=== PATIENT | male | born 1945 | race Caucasian/White ===

== ENCOUNTER 2023-08-10 02:58 | Inpatient (IN) | payer MEDICARE, OTHER, SELFPAY ==
[2023-08-09 22:46] VITALS: BP 130/68
[2023-08-09 22:49] VITALS: BP 130/68; BMI 31.0
[2023-08-09 23:00] VITALS: BP 117/59
--- NOTE | 2023-08-09 23:35 | ED.GENMED ---
History of Present Illness
General
Chief Complaint: Change in Mental Status
Source: patient
Exam Limitations: none
Time Seen by Provider: 08/09/23 22:51
Travel History
Have you had any contact with someone who has COVID-19?: No
Do you have any symptoms of coronavirus? Fever > 100 degrees, chills, cough, shortness of breath, sore throat, loss of taste or smell, muscle aches, or headache?: No
History of Present Illness
History of Present Illness:
This is a 78 year old male that is brought in by ambulance with c/o SOB. States that tonight he couldn't take a deep breath. States that he is in [facility] for rehab as he can't walk. States that he did fracture his knee on the right.Patient
states that he is not going back to the [facility]. States that they did not even have a urinal to give him. Denies any fever, chills, chest pain, abd pain, nausea, vomiting, diarrhea, headache, dizziness, urinary burning.
Past History
Past History
ED Past Medical History: Arrthythmia (Atrial fib), CHF (ED 20%), GERD, HTN, Hypercholesterolemia, NIDDM (Patient states he is no longer diabetic and does not take any medication for this. Diet control), Other (Cardiomyopathy, Aortic stenosis, EF
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
ED Past Surgical History: Cardiac (AICD, TAVR, Watchman, EF 21%), Orthopedic (Total right knee replacement), Urological and Other (Cataracts)
Patient has exhibited threatening behavior?: No
Social History
Tobacco: Non-smoker
Alcohol: None
Drug: None
Personal:
Living: with family
Employment: Retired
Family History
Family History: Other
Review of Systems
Review of Systems
All Other Systems: ROS reviewed and negative except as documented in HPI and ROS
Constitutional: Reports no symptoms; Denies fever or chills
EENT: Reports no symptoms
Respiratory: Reports trouble breathing; Denies cough
Cardiac: Reports no symptoms; Denies chest pain
ABD/GI: Reports no symptoms; Denies abdominal pain, nausea, vomiting or diarrhea
: Reports no symptoms; Denies dysuria, frequency or urgency
Musculoskeletal: Reports no symptoms
Skin: Reports no symptoms; Denies itching or rash
Neurological: Reports no symptoms; Denies dizzy or headache
Psychiatric: Reports no symptoms
Phy Exam
General Physical Exam
General Presentation: no apparent distress
General age: appears stated age
General Skin: warm and dry
General Habitus: elderly
General Mental: alert
General Hydration: appears well hydrated
ENT Exam
ENT Exam: TM's normal, pharynx normal and neck supple
Eye Exam
Eye Exam: EOMI
Cardiovascular Exam
Cardiovascular Exam: regular rate/rhythm and normal peripheral pulses
Pulmonary Exam
Pulmonary Exam: lungs clear, no respiratory distress, no rales, chest non tender, no crackles, no rhonchi, no wheezing and no cough
Gastrointestinal Exam
Gastrointestinal Exam: normal bowel sounds, non tender, soft, no organomegaly, no pulsatile mass and non distended
Musculoskeletal Exam
Musculoskeletal Exam: no edema and other (right leg immobilizer in place, )
Skin Exam
Skin Exam: normal color, warm/dry, no rash and no petechia
Psychiatric Exam
Psychiatric Exam: normal mood/affect
Course
Orders/Labs/Results
Orders:
Orders
08/09/23 23:34
CR Chest - 2 Views Urgent
Comment:
Reason For Exam: SOB
08/09/23 23:35
Electrocardiogram (*1) Urgent
Reason for Study: Shortness of Breath
EKG- Treatment ONCE
08/09/23 23:40
Complete Blood Count/With Diff Urgent
Comprehensive Metabolic Panel Urgent
D-Dimer Urgent
Troponin I Urgent
08/10/23 01:07
Urinalysis Reflex To Culture Urgent
Date Specimen was Collected: 08/10/23
Time Specimen was Collected: 01:04
Urine Microscopic Reflex Cult Urgent
Urine Culture Urgent
HOSEA Source: U
Specimen Description:
Date Specimen was Collected: 08/10/23
Time Specimen was Collected: 01:04
08/10/23 01:41
NT-proBNP Urgent
Abnormal Lab Results
08/09/23 08/10/23
23:40 01:07
RBC 3.27 L 10^6/uL
(4.70-6.10)
Hgb 8.0 L g/dL
(13.0-18.0)
Hct 24.7 L %
(39.0-52.0)
MCV 75.5 L fL
(80.0-94.0)
MCH 24.5 L pg
(27.0-31.0)
MCHC 32.4 L g/dL
(33.0-37.0)
RDW 14.6 H %
(11.5-14.5)
Absolute Lymphs (auto) 0.6 L 10^3/uL
(1.2-3.4)
Absolute Monos (auto) 0.7 H 10^3/uL
(0.1-0.6)
Immature Gran % 0.6 H %
(0-0.5)
Lymphocytes % 12.1 L %
(20.5-51.1)
Monocytes % 12.3 H %
(1.7-9.3)
D-Dimer 2.57 H ug/mlFEU
(0.00-0.50)
Sodium 134 L mmol/L
(135-145)
Chloride 97 L mmol/L
(98-107)
Carbon Dioxide 33 H mmol/L
(22-30)
BUN 69 H mg/dl
(9-20)
Creatinine 2.6 H mg/dL
(0.7-1.3)
Total Bilirubin 1.4 H mg/dl
(0.2-1.3)
Troponin I 0.057 H* ng/ml
Total Protein 5.9 L g/dl
(6.3-8.2)
Albumin 3.1 L g/dl
(3.5-5.0)
Ur Occult Blood Reflex 4+ A
(Negative)
Leukocyte Esterase Rfl Trace A
(Negative)
Urine RBC >100 A /HPF
(0-2)
Urine Bacteria (Reflex) Many A
(Negative)
08/09/23 23:40
08/09/23 23:40
H/H low, Anemia, carbon dioxide slightly elevated. Chronic renal insufficiency, Total protein low. Albumin slightly low. Troponin elevated, D-dimer elevated at 2.57
Urine negative for infection.
Vital Signs
Initial and Last Documented VS:
Initial Vital Signs
Pulse Ox
92
08/09/23 22:42
Last Documented Vital Signs
Temp Pulse Resp BP Pulse Ox
97.9 F 70 25 104/47 95
08/10/23 01:49 08/10/23 01:30 08/10/23 01:45 08/10/23 01:00 08/10/23 01:30
MDM/Problems Addressed
Differential Diagnosis Includes:
PNA, PE, CHF, AnXiety
MDM/Problems Addressed:
This is a 78 year old male that comes in with c/o SOB. States that he felt like he couldn't take a deep breath tonight. Patient also state that he is not going back to the [facility] as they did not even have a Urinal to give him.
Will check labs, chest pain.
Back into see patient. Explained to patient that his D-dimer is elevated and with his Leg injury this is concerning. Patient will need VQ scan as unable to get CT of chest due to kidney function. Patient is very happy as he said he is not going back
to [facility]. Hospitalist notified about admission and the need for Case management fo possible placement elsewhere.
Chronic conditions affecting care: Other (CHF)
Acute Exacerbation and/or Progression of Chronic Illness:
NA
*Radiology
Radiology exam reviewed: preliminary read by ED provider (Chest- Negative for active disease. Pacer/def noted)
*Pulse Oximetry
Patient hypoxic: no
*EKG
Interpreted by ED Provider?: Yes
Heart Rate: 70
Rate: normal
Rhythm: ventricular paced
*Journeyman Carpenter Interpretation
Rate: normal
Heart Rate: 72
Rhythm: ventricular paced
*Critical Care Note
Total Time (30-74mins, 75-104mins- exclusive of procedures): Not Applicable
ED Attending Note
-
Portions of this chart may have been created with voice recognition software.� Occasional wrong word or��sound alike� substitutions may have occurred due to the inherent limitations of voice recognition software.
Discharge Plan
Departure
Patient Disposition: Admit
Date of Disposition: 08/10/23
Time of Disposition: 00:44
Admit to: Telemetry
Presentation/result/management discussed w/ accepting MD/DO: Hospitalist
Condition: Good
Covid-19: Not Applicable
Discharge Problem:
SOB (shortness of breath)
Prescriptions:
No Action
atorvastatin 40 MG tablet
40 mg PO HS
metoprolol succinate [Toprol XL] 25 mg Tablet Extended Release 24 Hr
25 mg PO DAILY
tamsulosin [Flomax] 0.4 mg Capsule
0.4 mg PO HS
cholecalciferol (vitamin D3) [Vitamin D3] 25 mcg (1,000 unit) Tablet
25 mcg PO DAILY
ferrous sulfate [FeroSul] 325 mg (65 mg iron) Tablet
325 mg PO DAILY Qty: 30 0RF
metolazone 2.5 mg Tablet
2.5 mg PO TUTH
sennosides 8.6 mg Tablet
17.2 mg PO HS
bumetanide 2 mg tablet
2 mg PO BID
trazodone 50 mg Tablet
25 mg PO HS
polyethylene glycol 3350 [Miralax] 17 gram Powder In Packet
17 g PO DAILY PRN (Reason: constipation)
melatonin 3 mg Tablet
6 mg PO HS
lidocaine 5 % Adhesive Patch,Medicated
2 patch TOPICAL DAILY
docusate sodium 100 mg Capsule
100 mg PO DAILY
aspirin 81 mg Tablet,Chewable
81 mg PO DAILY
oxycodone 5 mg Tablet
5 mg PO MOTUWETHFR
Patient Comments:
08/09/2023: Clarified with half-way 10mg Prior to therapy discontinued today, and new order for 5mg Prior to therapy to start today.
Rx Instructions:
Give 30 mins prior to therapy
potassium chloride 20 mEq Tablet Extended Release
20 meq PO BID
acetaminophen [Pain Relief ES (acetaminophen)] 500 mg tablet
1,000 mg PO Q8H PRN (Reason: mild pain)
Referrals:
Ehsan Graham DO [Family Provider] -
Interventions
Interventions:
*Risk Screen - Suicide Last Done: 08/09/23 22:49
*General Assessment Last Done: 08/09/23 22:49
*Neglect/Abuse Screening Last Done: 08/09/23 23:00
ED- Fall Risk Assessment Last Done: 08/09/23 23:00
*ED COVID-19 Vaccine History Last Done: 08/09/23 22:49
ED- Pulmonary Assessment Last Done: 08/09/23 23:00
ED-Psychological Assessment Last Done: 08/09/23 23:00
ED- Neurological Assessment Last Done: 08/09/23 22:49
ED- Cardiac Assessment Last Done: 08/09/23 23:00
ED Swallowing Screen Last Done: 08/10/23 00:01
[2023-08-09 23:54] LABS: % Basophils 0.2 % (0-2); % Immature Granulocytes 0.6 % (0-0.5); % Lymphocytes 12.1 % (20.5-51.1); % Monocytes 12.3 % (1.7-9.3); % Neutrophils 74.8 % (42.2-75.2); Absolute Lymphocytes 0.6 10^3/uL (1.2-3.4); Absolute Monocytes 0.7 10^3/uL (0.1-0.6); Hematocrit 24.7 % (39.0-52.0); Mean Corp Hgb Conc. 32.4 g/dL (33.0-37.0); Mean Corpuscular Hgb 24.5 pg (27.0-31.0); Mean Corpuscular Volume 75.5 fL (80.0-94.0); Mean Platelet Volume 10.2 fL (7.4-10.4); Nucleated Red Blood Cells % 0 % (-); Platelet Count 180 10^3/uL (130-400); Red Blood Cell Count 3.27 10^6/uL (4.70-6.10); Red Cell Dist. Width 14.6 % (11.5-14.5); White Blood Cell Count 5.3 10^3/uL (4.8-10.8)
[2023-08-10] VITALS (12 sets, daily range): BP systolic 104–143; BP diastolic 45–106; BMI 31.0; BMI 30.8
[2023-08-10 00:05] LABS: ALT (SGPT) 11 U/L (0-50); AST (SGOT) 22 U/L (17-59); Albumin 3.1 g/dl (3.5-5.0); Alkaline Phosphatase 86 U/L (38-126); Blood Urea Nitrogen 69 mg/dl (9-20); Calcium 8.6 mg/dl (8.4-10.2); Carbon Dioxide 33 mmol/L (22-30); Chloride 97 mmol/L (98-107); Estimated Creatinine Clearance 29 ml/min; Glucose 97 mg/dl (70-99); Potassium 4.1 mmol/L (3.5-5.1); Sodium 134 mmol/L (135-145); Total Bilirubin 1.4 mg/dl (0.2-1.3); Total Protein 5.9 g/dl (6.3-8.2); eGFR 24.48
[2023-08-10 00:28] LABS: D-Dimer 2.57 ug/mlFEU (0.00-0.50)
[2023-08-10 00:30] LABS: Troponin I 0.057 ng/ml
[2023-08-10 01:31] LABS: Urine Albumin Trace (Neg - Trace); Urine Bilirubin Negative (Negative); Urine Character Slightly Cloudy (Clear); Urine Color Yellow; Urine Glucose Negative (Negative); Urine Ketone Negative (Negative); Urine Leukocyte Trace (Negative); Urine Nitrite Negative (Negative); Urine Occult Blood 4+ (Negative); Urine Urobilinogen Negative (Neg - 1+)
[2023-08-10 01:48] LABS: Urine Bacteria Many (Negative); Urine Red Blood Cell >100 /HPF (0-2)
--- NOTE | 2023-08-10 02:01 | HPS.HSE ---
Addendum entered and electronically signed by Kevin Seo MD 08/10/23 05:51:
09/29/22 12/14/22 08/10/23
[id number] Pept [id number]
Original Note:
Family Physician
-
Family Physician: Ehsan Graham, DO
Chief Complaint
-
SoB
History of Present Illness
78M from SNF at [place], rehab , Class I obesity, HX chr HFrEF, NICM, LVEF 30- 35% , CKD3b/4, T2DM,. JILLIAN [facility] for SOB he couldn't take a deep breath. States that he is in [facility] for rehab as he can't walk. States that he did
fracture his knee on the right.Patient states that he is not going back to the [facility]. States that they did not even have a urinal to give him. Denies any fever, chills, chest pain, abd pain, nausea, vomiting, diarrhea, headache, dizziness,
urinary burning.
Medical History
Past Medical History
Past Medical History: Reports Other
Additional Past Medical History:
Arrthythmia (Atrial fib), CHF (ED 20%), GERD, HTN, Hypercholesterolemia, NIDDM (Patient states he is no longer diabetic and does not take any medication for this. Diet control), Other (Cardiomyopathy, Aortic stenosis, EF 21%) and Other (Strep bovis
bacteremia/endocarditis June 2020/July 2020)
Past Surgical History: Reports Other
Additional Past Surgical History:
Cardiac (AICD, TAVR, Watchman, EF 21%), Orthopedic (Total right knee replacement), Urological and Other (Cataracts)
Social History
Tobacco: Non-smoker
Drug: None
Personal:
Living: With Family
Family History
Family History: Not pertinent
Allergies / Home Medications
Allergies reflects when Allergies were last updated in [employer].
Home Medications with original date entered in [employer]
Allergy/Medication List:
Allergies
Allergy/AdvReac Type Severity Reaction Status Date / Time
No Known Allergies Allergy Verified 05/18/23 21:47
Home Medications
atorvastatin 40 mg tablet 40 mg PO HS High cholesterol 09/29/22
cholecalciferol (vitamin D3) 25 mcg (1,000 unit) tablet (Vitamin D3) 25 mcg PO DAILY Supplement 12/14/22
metoprolol succinate 25 mg tablet,extended release 24 hr (Toprol XL) 25 mg PO DAILY Blood Pressure 12/14/22
tamsulosin 0.4 mg capsule (Flomax) 0.4 mg PO HS Urinary Issue 12/14/22
ferrous sulfate 325 mg (65 mg iron) tablet (FeroSul) 325 mg PO DAILY #30 tabs 03/14/23
acetaminophen 500 mg tablet (Pain Relief Extra Strength (acetaminophen)) 1,000 mg PO Q8H PRN mild pain 08/09/23
aspirin 81 mg chewable tablet 81 mg PO DAILY 08/09/23
bumetanide 2 mg tablet 2 mg PO BID 08/09/23
docusate sodium 100 mg capsule 100 mg PO DAILY 08/09/23
lidocaine 5 % topical patch 2 patch topical DAILY 08/09/23
melatonin 3 mg tablet 6 mg PO HS 08/09/23
metolazone 2.5 mg tablet 2.5 mg PO TUTH 08/09/23
oxycodone 5 mg tablet 5 mg PO MOTUWETHFR 08/09/23
polyethylene glycol 3350 17 gram oral powder packet (Miralax) 17 g PO DAILY PRN constipation 08/09/23
potassium chloride 20 mEq tablet,extended release 20 meq PO BID 08/09/23
sennosides 8.6 mg tablet 17.2 mg PO HS 08/09/23
trazodone 50 mg tablet 25 mg PO HS 08/09/23
Review of Systems
-
Constitutional: Reports No Symptoms
EENT: Reports No Symptoms
Respiratory: Reports See HPI and Trouble Breathing
Cardiac: Reports No Symptoms
Abdomen/GI: Reports No Symptoms
: Reports No Symptoms
Musculoskeletal: Reports No Symptoms
Skin: Reports No Symptoms
Neurological: Reports No Symptoms
Endocrine: Reports No Symptoms
Hematologic/Lymphatic: Reports No Symptoms
Psych: Reports No Symptoms
Physical Exam
Vital Signs
Vital Signs
Temp Pulse Resp BP Pulse Ox
97.9 F 70 25 104/47 95
08/10/23 01:49 08/10/23 01:30 08/10/23 01:45 08/10/23 01:00 08/10/23 01:30
Physical Exam
General: Other (see below )
Laboratory Results
-
08/09/23 23:40
08/09/23 23:40
Laboratory Results
Total Bilirubin 1.4 mg/dl (0.2-1.3) H 08/09/23 23:40
AST 22 U/L (17-59) 08/09/23 23:40
ALT 11 U/L (0-50) 08/09/23 23:40
Alkaline Phosphatase 86 U/L (38-126) 08/09/23 23:40
Troponin I 0.057 ng/ml H* 08/09/23 23:40
Data Reviewed
-
Diagnostic Radiology: Report Reviewed by me
Medical Tests (Nuc Med, Echo, EKG etc): Report Reviewed by me
Lab Data: Labs Reviewed by me
Old Records: Reviewed
Impression/Plan
-
Reviewed VS: Afebrile, mildly hypotensive, HR 80 , tachypnic. POx 90- 94
Wt: 115 kg ( 05/18/23 ) --> 103.6 kg ( 08/09/22)
PE
Gen: NAD , obese
HEENT: anicteric
Neck: supple
Lungs: CTA
Cor: RRR S1 S2
Abdomen: sft NT NG NRT
CUSTOMER ORDER CLERK: AAO3 NFND
MS: no edema
Psych: normal mood/affect
Data
Hgb 8.0 - baseline range hi 8s to low 9s
MCV 75
DD 2.57
Na 134
K 4.1
Cl 97
CO2 33
BUN 69
Cr 2.6 - baseline low 2s to hi 2s
eGFR 25 - baseline
TB 1.4
TPNI 0.057
Alb 3.1
Pending UA
NEG CXR for acute process. POS Pacer/ DF
08/22/22 ECHO
LVEF 30-35%
Enlarged right ventricular size. Normal right ventricular systolic function.
Severely dilated right atrium.
Mild mitral stenosis
Well-seated TAVR; peak/mean gradients are 39/19 mmHg. Mild paravalvular aortic regurgitation, two jets.
Moderate to severe tricuspid regurgitation. Estimated pulmonary artery pressure of 50-55 mmHg.
Last hospitalist admission 03/07/23 - 03/14/23 DXs;
Intractable lower back pain with ambulatory dysfunction
Acute toxic encephalotomy/ hypoactive delirium, due to oversedation with opiate
ASSESSMENT & PLAN
Dyspnea with marginal hypoxia DDX: chr CHF vs anemia vs. other multifactorial origins
HX NICM with EF 20 to 30% complicated by Chronic HFrEF or HFmEF
Wt loss 11- 12 kg compare to 05/18/23 and clinically he looks dry
HX Transcatheter aortic valve replacement 2015
- check pro BNP
- Held Bumex/metolazone for now till further eval by Elizaebth
- check standing Wt when he is able
- CBC acrd consult
ZHANG - clinically he looks dry
HX CKD4
Diff etilogy : volume contraction due to diuretics( Bumetanide and Metolazone) vs Cardio renal syndrome vs.
- Held Bumex/metolazone for now till further eval by Card amnd Renal
- Held KCL
- Bladder scan
- Renal consult
Elevated D Dimer
Uncertain clinical Index of suspicion for PE
cannot have CTC wit PE protocol due to ZHANG/CKD4
- Pul consult to evl for VQ scan or what not
Chronic microcytic anemia due to CKD4
- Observe Hgb
HX Strep bovis bacteremia/endocarditis with ICD device and lead extraction with reimplantation of biventricular ICD June 2020/July 2020in [place]
HX Chronic A-fib status post watchman 2021/TAVR hx 2016 - not on any anticoagulation
Essential HTN
- Held Toprol XL due to hypotension
HX T2DM - not on PO meds
- add ISS low
HLD
- cont Atorvastatin
HX BPH
- Baldder scan
- on Flomax 0.4 mg at bedtime
HX JILLIAN
Class I obesity due to excess calorie consumption�BMI 31
- weight loss recommended
DVT Px: SQH
Code: Full
IMU
[2023-08-10 04:26] LABS: Hematocrit 23.7 % (39.0-52.0); Hemoglobin 7.5 g/dL (13.0-18.0); Mean Corp Hgb Conc. 31.6 g/dL (33.0-37.0); Mean Corpuscular Hgb 24.2 pg (27.0-31.0); Mean Corpuscular Volume 76.5 fL (80.0-94.0); Mean Platelet Volume 10.1 fL (7.4-10.4); Platelet Count 155 10^3/uL (130-400); Red Cell Dist. Width 14.8 % (11.5-14.5); White Blood Cell Count 4.8 10^3/uL (4.8-10.8)
[2023-08-10 04:55] LABS: Blood Urea Nitrogen 78 mg/dl (9-20); Calcium 8.7 mg/dl (8.4-10.2); Carbon Dioxide 31 mmol/L (22-30); Chloride 97 mmol/L (98-107); Estimated Creatinine Clearance 30 ml/min; Glucose 149 mg/dl (70-99); Potassium 3.7 mmol/L (3.5-5.1); Sodium 137 mmol/L (135-145); eGFR 25.65
[2023-08-10 05:01] LABS: NT-proBNP 3900 pg/ml
[2023-08-10 05:28] LABS: Ferritin 26.4 ng/ml (17.9-464.0)
--- NOTE | 2023-08-10 05:32 | PTCARENOTE ---
Patient came up from ED, following commands, AAx2, disoriented to time. Complaining of aching pain in right knee fracture. Normal sinus, 70s, v paced. Palpable radial pulses bilaterally and weak palpable pedal pulses bilaterally. Afebrile. 93-96% on
room air, lung sounds diminished. 2 bowel movements, soft and brown. Urinal to void, has not voided since coming from ED, reported to have voided 300 mls in ED. PIV WNL. CHG bath done, labs sent. Hourly rounding and patient safety checks ongoing.
--- NOTE | 2023-08-10 08:22 | PTCARENOTE ---
received patient in bed at 0700. Awake and oriented to place and person. Disoriented of time. Denies pain. BP via left upper arm: 133/67 MAP 87 V/P 70 RR 21. POX 93%. Denies chest pain or discomfort . No edema pedal pulses present. ON RA . Lungs
diminished NO cough No SOB. Abdomen soft round LBP 08/10. No urinal output at this time. Mouth care administered . oral temp 99.0. call leon within reach. HOB elevated
[2023-08-10] MEDS: HEPARIN 5000 UNITS SC ×2 (08:29→20:32)
[2023-08-10] MEDS: LIDOCAINE 4% PATCH 2 PATCH TOPICAL (08:29)
[2023-08-10] MEDS: LOW STRENGTH ASPIRIN 81 MG PO (08:29)
--- NOTE | 2023-08-10 08:29 | CON.PUL ---
Addendum entered and electronically signed by Jordan Buenrostro MD 08/10/23 16:57:
JOSEPH doppler: negative
V/Q scan: low prob testing, reviewed
No indication for AC, BDs, O2
Original Note:
Consultation
Consultation Request
Date/Time Consultation Requested: 08-10-23
Date/Time Consultation Performed: 08-10-23
Medical History
-
Chief Complaint: dyspnea
History of Present Illness:
Mr Edgardo Welsh is a 78/M adm 08-09 from [place] with dyspnea and h/o R knee fracture in May 2023 for which he did not need surgery.
At ER, afebrile, hemodyn and resp dominguez stable on RA, D-dimer elevated, CXR with no gross infiltrates, adm for further work up
At time of visit, resting comfortably, speaking in full sentences, though rambling historian
Denies h/o smoking, cough. Denies precordial/pleuritic CP, syncope
R knee fracture managed conservatively with application of bandage, denies using a cast.
Past Medical History
Past Medical History: Other (see A&P for PMH/PSH)
Social History
Tobacco: Non-smoker
Alcohol: None
Drug: None
Personal:
Living: [facility]
Employment: Not Employed
Family History
Family History: Reviewed & Not Pertinent
Allergies / Home Medications
Allergies
Allergy/AdvReac Type Severity Reaction Status Date / Time
No Known Allergies Allergy Verified 08/10/23 03:09
Home Medications
Medication Instructions Recorded Confirmed Last Taken Type
atorvastatin 40 mg tablet 40 mg PO HS High cholesterol 09/29/22 08/09/23 03/04/23 History
cholecalciferol (vitamin D3) 25 25 mcg PO DAILY Supplement 12/14/22 08/09/23 03/05/23 History
mcg (1,000 unit) tablet (Vitamin
D3)
metoprolol succinate 25 mg 25 mg PO DAILY Blood Pressure 12/14/22 08/09/23 03/05/23 History
tablet,extended release 24 hr
(Toprol XL)
tamsulosin 0.4 mg capsule (Flomax) 0.4 mg PO HS Urinary Issue 12/14/22 08/09/23 03/04/23 History
ferrous sulfate 325 mg (65 mg 325 mg PO DAILY #30 tabs 03/14/23 Unknown Rx
iron) tablet (FeroSul)
acetaminophen 500 mg tablet (Pain 1,000 mg PO Q8H PRN mild pain 08/09/23 08/09/23 Unknown History
Relief Extra Strength
(acetaminophen))
aspirin 81 mg chewable tablet 81 mg PO DAILY 08/09/23 08/09/23 Unknown History
bumetanide 2 mg tablet 2 mg PO BID 08/09/23 08/09/23 Unknown History
docusate sodium 100 mg capsule 100 mg PO DAILY 08/09/23 08/09/23 Unknown History
lidocaine 5 % topical patch 2 patch topical DAILY 08/09/23 08/09/23 Unknown History
melatonin 3 mg tablet 6 mg PO HS 08/09/23 08/09/23 Unknown History
metolazone 2.5 mg tablet 2.5 mg PO TUTH 08/09/23 08/09/23 Unknown History
oxycodone 5 mg tablet 5 mg PO MOTUWETHFR 08/09/23 08/09/23 Unknown History
polyethylene glycol 3350 17 gram 17 g PO DAILY PRN constipation 08/09/23 08/09/23 Unknown History
oral powder packet (Miralax)
potassium chloride 20 mEq 20 meq PO BID 08/09/23 08/09/23 Unknown History
tablet,extended release
sennosides 8.6 mg tablet 17.2 mg PO HS 08/09/23 08/09/23 Unknown History
trazodone 50 mg tablet 25 mg PO HS 08/09/23 08/09/23 Unknown History
Review of Systems
-
History Source: Patient
Respiratory: Trouble Breathing
Vitals / Labs / Diagnostic Testing
Vital Signs
Temp Pulse Resp BP Pulse Ox
99.0 F 70 14 124/87 90
08/10/23 08:00 08/10/23 07:30 08/10/23 07:30 08/10/23 06:00 08/10/23 07:30
Lab Data
08/10/23 04:16
08/10/23 04:16
Diagnostic Testing:
Physical Exam
-
HEENT: Normocephalic and Moist Mucous Membranes
Cardiovascular: Regular Rhythm, Peripheral Edema (n) and JVD (n)
Respiratory: Clear and Non-Labored Respirations
GI: Soft, Non Distended and Non Tender
Neurology: Awake, Oriented and No Motor Deficits
Skin: Dry
General: Respiratory Distress (n)
Assessment
-
Assessment:
Mr Edgardo Welsh is a 78/M adm 08-09 from [place] with dyspnea and h/o R knee fracture in May 2023 for which he did not need surgery. At ER, afebrile, hemodyn and resp dominguez stable on RA, D-dimer elevated, CXR with no gross infiltrates
Impression:
Dyspnea
Elevated D-dimer
Elevated troponin
HFrEF
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
CHF
AFib
HTN
HLD
S/p ICD lead extraction 08/28/2022: intubated for procedre, on MV overnight afterwards
Staphylococcus epidermidis bacteremia
ICD wire endocarditis
Strep bovis bacteriemia/endocarditis Jun 2020
TAVR, Watchman procedure 2015
Covid May 2022
Nonischemic cardiomyopathy, EF 30%
Status post ICD
NSVT
Chronic kidney disease stage III
Recurrent UTI
R TKR 10 y ago
BPH
Nonsmoker
Plan:
Currently on RA, POx 94% at rest
Resp dominguez comfortable at time of visit, speaking in full sentences
Noted that Mr Welsh is a rambling historian, does not remember some details of his medical histoy
To my interview denies cough, precordial or pleuritic CP, syncopal event
For R knee fracture in May 2023 he did not require surgery but bandaging of R knee for support
Denies previous h/o VTE
Not on chronic AC
Denies h/o smoking
States he had O2 at home at some point in the past but used it only as needed
Not on bronchodilators, confirms h/o nonsmoking
Noted elevated D-dimer on adm, normal back in 2014
Potential causes or contributing factors: CKD, aging, ACS
Observing off AC at this time
Noted evolving moderate to severe anemia: 10 in May 2023, 8 on adm, today 7.5 (08-10)
Noted hematuria on UA, UCx pending
Ordered JOSEPH doppler
V/Q was also ordered
Not candidate for CTA due to CKD
Updating TTE
Stable for telemetry, pulm to follow
D/w Mr Welsh
D/w Dr Leo
Diagnostic tests:
CXR 08-09-23: PA/lat c/w Feb 2023. Somewhat underpenetrated film with suspected poor inspiratory effort, low lung volumes, mild increase in pulm vasc congestion, prominent R hilar vessels. R chest PM
RHC 10-11-22
RA: 21
RV: 64/20
PA: 68/30
PCWP: 25
Oximetry: Ao 100%, PA 62%, cardiac output 6.0, cardiac index 2.6
CONCLUSION: Elevated filling pressures with moderate to severe pulmonary hypertension. Filling pressures consistent with volume overload
SUSI 08-24-22
CONCLUSIONS
Moderately reduced left ventricular systolic function. Left ventricular ejection fraction is 35-40%.
Global hypokinesis.
There is a 1.2 cm mobile echodensity on the ICD lead consistent with thrombus or vegetation.
Watchman FLX with normal function.
Well seated bioprosthetic AVR that opens normally. Mild paravalvular leak. Mild to moderate mitral regurgitation.
Moderate to severe tricuspid regurgitation. Estimated pulmonary artery pressure of 65-70 mmHg.
Compared to prior study of Aug 22, the echodensity is now seen (this study is a SUSI while that was a transthoracic
--- NOTE | 2023-08-10 09:19 | CON.CAR ---
Addendum entered and electronically signed by Sam Parra MD 08/10/23 10:28:
Patient seen and examined in collaboration with PURCHASING AGENT; agree with below.
-70-year-old male with extensive cardiac/medical history as outlined below, including chronic HFrEF (30-35%); admitted with shortness of breath.
-Patient actually appears to be fairly compensated from a cardiac standpoint.
-Patient has an elevated D-dimer; PE should be ruled out.
-Will update echocardiogram today; known chronic CHF, however.
-Anemia workup as per primary team.
-Patient can continue current cardiac medication regimen.
-Cardiology will remain available on an as-needed basis; outpatient follow-up with Cardiology.
Original Note:
Consultation
Consultation Request
Date/Time Consultation Requested: 08/10/23 03:30
Date/Time Consultation Performed: 08/10/23 09:15
Requesting Provider: Dr. Seo
Performing Provider: MIKALA Oliver for Dr. Parra
Reason for Consultation: Dyspnea with mild hypoxia, concern for acute on chronic HFrEF
Medical History
-
Chief Complaint: Shortness of breath
History of Present Illness:
Mr. Welsh is a 70-year-old male with CAD, non-ischemic cardiomyopathy, HFrEF, permanent atrial fibrillation (Watchman device on aspirin), aortic stenosis s/p TAVR, ICD with lead extraction 08/28/2022 this is, dyslipidemia, and CKD who presented to
the emergency department complaints of shortness of breath. He reports he is not short of breath. Cardiology was consulted for concern for acute on chronic HFrEF. He states he does have a dry cough. He denies orthopnea and PND. He reports
medication adherence. He has not had any weight gain. He actually is his lowest documented weight at this facility. He is requesting to not return to his rehabilitation facility.
Past Medical History
Past Medical History: Arrhythmias (Permanent atrial fibrillation), CHF (HFrEF), Renal Failure (CKD), Valvular Disease (Severe aortic stenosis s/p TAVR) and Other (Watchman, ICD requiring lead extraction [infection])
Past Surgical History: Cardiac
Social History
Tobacco: Former Smoker
Alcohol: None
Drug: None
Living: [facility]
Family History
Family History: Reviewed & Not Pertinent
Allergies / Home Medications
Allergy/AdvReac Type Severity Reaction Status Date / Time
No Known Allergies Allergy Verified 08/10/23 03:09
Medication Instructions Recorded Confirmed Type
atorvastatin 40 mg tablet 40 mg PO HS High cholesterol 09/29/22 08/09/23 History
cholecalciferol (vitamin D3) 25 25 mcg PO DAILY Supplement 12/14/22 08/09/23 History
mcg (1,000 unit) tablet (Vitamin
D3)
metoprolol succinate 25 mg 25 mg PO DAILY Blood Pressure 12/14/22 08/09/23 History
tablet,extended release 24 hr
(Toprol XL)
tamsulosin 0.4 mg capsule (Flomax) 0.4 mg PO HS Urinary Issue 12/14/22 08/09/23 History
ferrous sulfate 325 mg (65 mg 325 mg PO DAILY #30 tabs 03/14/23 Rx
iron) tablet (FeroSul)
acetaminophen 500 mg tablet (Pain 1,000 mg PO Q8H PRN mild pain 08/09/23 08/09/23 History
Relief Extra Strength
(acetaminophen))
aspirin 81 mg chewable tablet 81 mg PO DAILY 08/09/23 08/09/23 History
bumetanide 2 mg tablet 2 mg PO BID 08/09/23 08/09/23 History
docusate sodium 100 mg capsule 100 mg PO DAILY 08/09/23 08/09/23 History
lidocaine 5 % topical patch 2 patch topical DAILY 08/09/23 08/09/23 History
melatonin 3 mg tablet 6 mg PO HS 08/09/23 08/09/23 History
metolazone 2.5 mg tablet 2.5 mg PO TUTH 08/09/23 08/09/23 History
oxycodone 5 mg tablet 5 mg PO MOTUWETHFR 08/09/23 08/09/23 History
polyethylene glycol 3350 17 gram 17 g PO DAILY PRN constipation 08/09/23 08/09/23 History
oral powder packet (Miralax)
potassium chloride 20 mEq 20 meq PO BID 08/09/23 08/09/23 History
tablet,extended release
sennosides 8.6 mg tablet 17.2 mg PO HS 08/09/23 08/09/23 History
trazodone 50 mg tablet 25 mg PO HS 08/09/23 08/09/23 History
Review of Systems
-
History Source: Patient
All other systems: Negative unless noted
Constitutional: No Symptoms
EENT: No Symptoms
Respiratory: No Symptoms
Cardiac: No Symptoms
Abdomen/GI: No Symptoms
: No Symptoms
Musculoskeletal: No Symptoms
Skin: No Symptoms
Neurological: No Symptoms
Endocrine: No Symptoms
Hematologic/Lymphatic: No Symptoms
Physical Exam
Vital Signs
Temp Pulse Resp BP Pulse Ox
99.0 F 70 14 124/87 90
08/10/23 08:00 08/10/23 07:30 08/10/23 07:30 08/10/23 06:00 08/10/23 07:30
Lab Results
08/10/23 04:16
08/10/23 04:16
Troponin I 0.060 ng/ml H* 08/10/23 08:18
Wdg-A-Bnybcyulnrt Pept 3900 pg/ml 08/10/23 04:16
Physical Exam
General: Well Developed, Well Nourished, No Apparent Distress and Comfortable
HEENT: Normocephalic and Moist Mucous Membranes
Respiratory: Clear and Non Labored Respirations
Cardiac: S1/S2 and Regular Rhythm
Breast: Deferred by me
GI: Soft, Non Tender, Non Distended and Normal Bowel Sounds
Rectal: Deferred by Provider
Genito-urinary: No Costovertebral Tender
Musculoskeletal: No Clubbing, No Cyanosis and No Edema
Skin: Warm and Dry
Neuro: AO x 3
Hematologic/Lymphatic: No Lymphadenopathy
Psych: Calm
Impression / Plan
-
HFrEF (EF30-35%), chronic
-On beta dianne, GDMT is limited by renal function.
-Resume bumetanide 2 mg twice daily tomorrow
-He is at his lowest documented weight without PND and orthopnea holding his renal function
Permanent Atrial Fibrillation
-Stable & rate controlled, continue BB
-Oral Anticoagulation: Watchman 04/11/2022 on ASA 81mg
Abnormal troponin, nonischemic myocardial injury in the setting of CKD
-He denies anginal symptoms, trend to peak
-EKG ventricularly paced
Anemia, per primary
s/p TAVR, stable on prior echocardiogram, update
CKD, chronic and stable
ICD, s/p lead extraction on 08/28/22. Then re-implant of Bi-V ICD device at [facility] [place]
Data Reviewed
-
EKG: Report Reviewed by me (V paced rhythm, rate 70)
Radiology: Report Reviewed by me (CXR: Limited study with extremely low lung volumes and crowding of the central/vascular markings. No findings to suggest pneumonia.)
Medical Tests (Nuc Med, Echo etc): Report Reviewed by me (TTE 08/2022 as above)
Labs: Labs Reviewed by me
Old Records: Reviewed
--- NOTE | 2023-08-10 09:46 | W.PN.UPDATE ---
Update Note
Progress Note Update
Impression:
Presenting from rehab with complaints of cough and chest pain.
Conditions prior to admission:
Chronic CHF reduced EF/nonischemic cardiomyopathy LVEF 30-35%
Permanent atrial fibrillation
Not on anticoagulation status post watchman 04/29
Aortic stenosis status post TAVR
CKD stage IV baseline creatinine 2.[address]
History of staph epi bacteremia due to infected pacemaker lead/lead extraction 08/31 [facility]
Anemia of chronic disease.
Dyslipidemia
Chronic pain requiring narcotics administration
BPH
Obesity with BMI of 30
Chronic ambulatory dysfunction
Plan:
Episode of chest pain, self-limited.
Stable respiratory status with no requirements for supplemental oxygen.
He has chronic CHF with cardiomyopathy LVEF of 30%, exam with euvolemic to dry status. Non-OK troponin elevation noted. Pro CHF BNP lower than baseline.
Patient is nonambulatory.
There is a reasonable concern for thromboembolic disease
Will check lower extremity Doppler and VQ scan. Unable to perform CTA given abnormal renal function)
Chronic CHF reduced EF.
Update echocardiogram.
Continue beta-dianne with caution for hypotension
Unable to introduce GDMT due to abnormal renal function.
Given mild dehydration with contraction alkalosis, will hold bumetanide for another 24 to 48 hours monitoring volume status closely
Permanent atrial fibrillation.
History of manage complications. Status post watchman not on anticoagulation
Continue beta-blockade
Non-OK troponin elevation.
Patient denies any chest pain
ECG paced.
Monitor trend.
Chronic anemia with trending down hemoglobin at 7's.
Check iron study
Suspect anemia of CKD.
Transfuse if trending down below 7.
[2023-08-10 10:17] LABS: Iron 30 ug/dl (49-181)
[2023-08-10 10:27] LABS: Percent Saturation 10 % (20-50); Total Iron Binding Capacity 292 ug/dl (261-462)
[2023-08-10 10:52] LABS: TSH 1.61 uIU/ml (0.47-4.68)
[2023-08-10 11:11] LABS: Vitamin B12 484 pg/ml (239-931)
[2023-08-10] MEDS: TOPROL XL 25 MG PO (11:28)
--- NOTE | 2023-08-10 12:07 | PTCARENOTE ---
patient will be transfer to room 402/1 Report given to 4th floor nursing staff.
--- NOTE | 2023-08-10 13:18 | PTCARENOTE ---
patient will be transfer to [facility] for VQ scan . After completion of vQ scan patient will be transfer to room 402/1 Report given earlier. all belongings including cell phone and cell phone changer send with patient pt transfer via bed. no
contact for family to notify them regarding transfer available
--- NOTE | 2023-08-10 13:28 | CM ---
CM following re: discharge planning.
Discussed in Rounds, reviewed pt's chart, met with pt twice today and had a long conversation with pt's brother Orestes.
Pt is a 78 year old male, admitted with primary dx of Dyspnea with marginal hypoxia.
Pt is well known to this CM from previous admissions last year. Pt has had many hospitalizations last year, was at many SNFs. Pt reports he used to live with spouse 2SH, 2 steps to enter, has no children. Pt reports he has been at [facility] for more than 30 days, his spouse also there. Pt expressed his desire to return back to his house to live with his spouse. Pt stated his brother Orestes and his spouse will help him to stay at home and pt asked to call his brother Orestes.
CM spoke to pt's brother Orestes [phone] and pt's brother stated he and his spouse have their own health condition and they will not be able to care for pt and his spouse at their home. Per Orestes, APS of [facility] was involved and pt's
spouse removed from her home and she was placed to [facility] and after she was placed to [facility]. 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
care and his nieces and nephews will sell the house. Pt's brother stated he understands that pt wants to live in his own house but there will be nobody to help him. per brother, pt might prefer [facility] instead of [facility].
CM met with pt again, had a long conversation that apparently was not pleasant sandi the pt , however pt expressed his understanding and pt stated he realized he must be where he has a care he needs. Pt agrees to return back to [facility] for
a dedicated intermodal truck driver care and he stated he will talk there with his spouse regarding transferring to [facility]. Pt is aware that both [facility] and [facility] are warren facilities and it will not be difficult for pt and to his spouse to
be transferred from one SNF to another. Pt stated he already working with his nieces and nephews regarding selling his and his spouse property. Pt stated he realized he needs a lot of care.
D/C plan: return back to [facility] to continue on a short term skilled services and transitioning for a dedicated intermodal truck driver care.
CM will follow with discharge plan updates as hospitalization progresses
[2023-08-10 15:30] LABS: Troponin I 0.049 ng/ml
[2023-08-10] MEDS: TYLENOL 1000 MG PO (15:33)
--- NOTE | 2023-08-10 16:25 | W.PN.HOSP.TC ---
Today's Communication/Plan
-
.
Assessment / Plan
Assessment / Plan
Impression:
Dyspnea
Congestive heart failure with reduced ejection fraction
Permanent A-fib
Elevated troponins
Anemia
Aortic stenosis s/p TAVR
Chronic kidney disease stage IV
Dyslipidemia
Narcotic dependence for chronic pain
BPH
Obesity
Chronic ambulatory dysfunction
Plan:
#Dyspnea
Currently on room air, SpO2 at 97%
Uses home O2 as required at nighttime, 1-2 L.
Denies previous h/o VTE
D-dimer elevated 2.57
Plan for PE workup, not a candidate for pulmonary CT angiogram due to CKD
Peripheral vascular ultrasound�no evidence of deep venous thrombosis in lower extremities
Lung VQ scan�no evidence of pulmonary embolism
#Chronic CHF with reduced ejection fraction [30 to 35%]
Continue metoprolol
GDMT limited due to renal function
Bumetanide on hold for another 24 to 48 hours
Monitor inputs and outputs
#Permanent Atrial Fibrillation
Stable & rate controlled
Continue metoprolol succinate
Oral Anticoagulation: Watchman 04/11/2022 on ASA 81mg
#Abnormal troponin, 0.060, 0.049,
nonischemic myocardial injury in the setting of CKD
Denies angina
ECG ventricularly paced
Monitor trend
#Chronic anemia
Hemoglobin 7.5
Check iron studies
Transfuse if less than 7
# Aortic stenosis S/P TAVR
# CKD stage IV
Creatinine 2.5, BUN 78
Monitor
# Dyslipidemia
Continue atorvastatin
# BPH
Continue trazodone
# DVT prophylaxis
Heparin
Anticipated Discharge: Within 24 hours
Subjective/Interval History
-
Date of Service: August 10, 2023
Patient states his chest pain and shortness of breath have improved.
Objective Data
-
Labs:
Laboratory Results
08/10/23
04:16
WBC 4.8
Hgb 7.5 L
Hct 23.7 L
Plt Count 155
Sodium 137
Potassium 3.7
Chloride 97 L
Carbon Dioxide 31 H
BUN 78 H
Creatinine 2.5 H
Glucose 149 H
Calcium 8.7
Vital Signs:
Vital Signs
Temp Pulse Resp BP Pulse Ox
98.8 F 71 20 143/72 97
08/10/23 14:00 08/10/23 14:00 08/10/23 14:00 08/10/23 14:00 08/10/23 14:00
I&O
08/09/23 08/10/23 08/11/23
06:59 06:59 06:59
Intake Total 240 / 240
Output Total 300 / 300
Balance -300 / -300 240 / 240
Physical Exam
-
General: Well Developed, Well Nourished and Comfortable
HEENT: Normocephalic and Atraumatic
Respiratory: Clear to Auscultation
Cardiac: Regular Rhythm and S1/S2
GI: Soft, Nontender, Nondistended and Normal Bowel Sounds
Musculoskeletal: No Clubbing, No Cyanosis and No Edema
Skin: Warm and Dry
Neuro: Awake, Alert, Oriented and AO x 3
[2023-08-10] MEDS: FLOMAX 0.400000000000000022 MG PO (20:31)
[2023-08-10] MEDS: MELATONIN 6 MG PO (20:31)
[2023-08-10] MEDS: DESYREL 25 MG PO (20:31)
[2023-08-10] MEDS: LIPITOR 40 MG PO (20:31)
--- NOTE | 2023-08-11 04:04 | PTCARENOTE ---
Patient called RN in stating he could not breathe. Patients O2 was 99% on RA. Patient stated he usually uses home O2 at 2L at bedtime. RN put patient on 2L NC. RN and PCT provided emotional support. SaO2 was 99-100% on 2L NC.
[2023-08-11 04:10] VITALS: BMI 30.5
[2023-08-11 07:05] VITALS: BP 117/68
[2023-08-11 07:31] LABS: Hemoglobin 7.2 g/dL (13.0-18.0); Mean Corp Hgb Conc. 31.3 g/dL (33.0-37.0); Mean Corpuscular Hgb 24.2 pg (27.0-31.0); Mean Corpuscular Volume 77.2 fL (80.0-94.0); Mean Platelet Volume 10.1 fL (7.4-10.4); Platelet Count 166 10^3/uL (130-400); Red Blood Cell Count 2.98 10^6/uL (4.70-6.10); Red Cell Dist. Width 14.8 % (11.5-14.5); White Blood Cell Count 3.4 10^3/uL (4.8-10.8)
[2023-08-11 08:09] LABS: Blood Urea Nitrogen 66 mg/dl (9-20); Calcium 8.2 mg/dl (8.4-10.2); Carbon Dioxide 34 mmol/L (22-30); Chloride 97 mmol/L (98-107); Estimated Creatinine Clearance 31 ml/min; Glucose 70 mg/dl (70-99); Potassium 3.7 mmol/L (3.5-5.1); Sodium 133 mmol/L (135-145); eGFR 26.94
[2023-08-11] MEDS: HEPARIN 5000 UNITS SC ×2 (08:18→22:29)
[2023-08-11] MEDS: LIDOCAINE 4% PATCH 2 PATCH TOPICAL (08:18)
[2023-08-11] MEDS: TOPROL XL 25 MG PO (08:19)
[2023-08-11] MEDS: LOW STRENGTH ASPIRIN 81 MG PO (08:19)
--- NOTE | 2023-08-11 08:54 | W.PN.HOSP.TC ---
Today's Communication/Plan
-
Transfuse 1 unit of packed red blood cells today
Assessment / Plan
Assessment / Plan
#Dyspnea with activity
#Worsening anemia from chronic kidney disease and iron deficiency
Currently on room air, SpO2 at 97%, iron studies reveal iron deficiency
Peripheral vascular ultrasound�no evidence of deep venous thrombosis in lower extremities
Lung VQ scan�no evidence of pulmonary embolism
Appreciate cardiology and pulmonology input, patient's cardiac and pulmonary status are compensated
Patient's hemoglobin continues to trend down to 7.2, no signs of bleeding
Transfuse 1 unit of packed red blood cells today for symptomatic anemia
Give IV iron while in hospital, resume oral iron upon discharge
#Chronic CHF with reduced ejection fraction [30 to 35%]
Appreciate cardiology input, continue metoprolol, GDMT limited due to renal function
Resume Bumex today 2/
#Permanent Atrial Fibrillation
Rate controlled on metoprolol, on aspirin status post watchman
#Nonmyocardial troponin elevation
Likely due to CKD
#Aortic stenosis S/P TAVR
#CKD stage IV
Creatinine at baseline
#Hyperlipidemia
Continue atorvastatin
#BPH
Continue flomax
#Recent right knee fracture manage medically
Continue pain control, PT/OT
Patient does not want to return to [facility], case management to assist
DVT prophylaxis�subcu heparin
Full code
Total time spent to see the patient on the floor, examine the patient, review data and lab results, discuss treatment plan with patient, nursing staff around 51 minutes.
Physical Exam
General: Appears chronically debilitated, no acute distress
HEENT: Normocephalic, Atraumatic, EOMI, MMM
Respiratory: Clear to Auscultation bilaterally
Cardiac: Normal S1/S2, Regular Rate and Rhythm
GI: Soft, Nontender, Nondistended, Normal Bowel Sounds
Anticipated Discharge: 24 - 48 hours
Subjective/Interval History
-
Date of Service: August 11, 2023
Patient reports dyspnea with activity. No lightheadedness, no weakness, no shortness of breath at rest.
Objective Data
-
Labs:
Laboratory Results
08/11/23
06:02
WBC 3.4 L
Hgb 7.2 L
Hct 23.0 L
Plt Count 166
Sodium 133 L
Potassium 3.7
Chloride 97 L
Carbon Dioxide 34 H
BUN 66 H
Creatinine 2.4 H
Glucose 70
Calcium 8.2 L
Vital Signs:
Vital Signs
Temp Pulse Resp BP Pulse Ox
97.6 F 72 18 117/68 100
08/11/23 07:05 08/11/23 08:19 08/11/23 07:05 08/11/23 08:19 08/11/23 07:05
I&O
08/10/23 08/11/23 08/12/23
06:59 06:59 06:59
Intake Total 1680 / 1680
Output Total 300 / 300 1000 / 1000
Balance -300 / -300 680 / 680
[2023-08-11 13:42] VITALS: BP 93/43
[2023-08-11 14:01] VITALS: BP 123/58
[2023-08-11 16:35] VITALS: BP 117/78
--- NOTE | 2023-08-11 16:35 | PTCARENOTE ---
Completed unit of PRBCs at this time, no apparent transfusion reaction, see TAR for documentation, will continue to monitor.
[2023-08-11] MEDS: BUMEX 2 MG PO (16:38)
--- NOTE | 2023-08-11 17:14 | W.PN.PUL3 ---
Today's Communication / Plan
-
Reconsult prn
Assessment
-
Assessment:
Mr Edgardo Welsh is a 78/M adm 08-09 from [place] with dyspnea and h/o R knee fracture in May 2023 for which he did not need surgery. At ER, afebrile, hemodyn and resp dominguez stable on RA, D-dimer elevated, CXR with no gross infiltrates
Impression:
Dyspnea
Elevated D-dimer
Elevated troponin
HFrEF
Conditions [employer]ERAM[employer]:
CHF
AFib
HTN
HLD
S/p ICD lead extraction 08/28/2022: intubated for procedre, on MV overnight afterwards
Staphylococcus epidermidis bacteremia
ICD wire endocarditis
Strep bovis bacteriemia/endocarditis Jun 2020
TAVR, Watchman procedure 2015
Covid May 2022
Nonischemic cardiomyopathy, EF 30%
Status post ICD
NSVT
Chronic kidney disease stage III
Recurrent UTI
R TKR 10 y ago
BPH
Nonsmoker
Plan:
Remains on RA, POx 94% at rest
Resp dominguez comfortable, speaking in full sentences
Noted that Mr Welsh is a rambling historian, does not remember some details of his medical histoy
To my interview denies cough, precordial or pleuritic CP, syncopal event
For R knee fracture in May 2023 he did not require surgery but bandaging of R knee for support
Denies previous h/o VTE
Not on chronic AC
Denies h/o smoking
States he had O2 at home at some point in the past but used it only as needed
Not on bronchodilators, confirms h/o nonsmoking
Noted elevated D-dimer on adm, normal back in 2014
Potential causes or contributing factors: CKD, aging, ACS
Observing off AC at this time
Noted evolving moderate to severe anemia: 10 in May 2023, 8 on adm, today 7.5 (08-10)
Noted hematuria on UA, UCx GNB
JOSEPH doppler negative
V/Q low prob test
Not candidate for CTA due to CKD
Updating TTE: enlarged RV with normal systolic function. LVEF 30=35%, global hypokinesis, mild to mod MR, well seated TAVR with mild paravalvlar AR. No significant change c/w Aug 2022
Managing anemia
D/w Mr Welsh
Reconsult prn
Diagnostic tests:
CXR 08-09-23: PA/lat c/w Feb 2023. Somewhat underpenetrated film with suspected poor inspiratory effort, low lung volumes, mild increase in pulm vasc congestion, prominent R hilar vessels. R chest PM
RHC 10-11-22
RA: 21
RV: 64/20
PA: 68/30
PCWP: 25
Oximetry: Ao 100%, PA 62%, cardiac output 6.0, cardiac index 2.6
CONCLUSION: Elevated filling pressures with moderate to severe pulmonary hypertension. Filling pressures consistent with volume overload
SUSI 08-24-22
CONCLUSIONS
Moderately reduced left ventricular systolic function. Left ventricular ejection fraction is 35-40%.
Global hypokinesis.
There is a 1.2 cm mobile echodensity on the ICD lead consistent with thrombus or vegetation.
Watchman FLX with normal function.
Well seated bioprosthetic AVR that opens normally. Mild paravalvular leak. Mild to moderate mitral regurgitation.
Moderate to severe tricuspid regurgitation. Estimated pulmonary artery pressure of 65-70 mmHg.
Compared to prior study of Aug 22, the echodensity is now seen (this study is a SUSI while that was a transthoracic
Subjective Data
-
Date of Service:
Date of Service: August 11, 2023
Chief Complaint: Pulmonary Follow Up
Subjective:
No major events reported
Remains on RA
In no resp distress
Review of Systems
General: Fever (n), Sweats (n), Chills (n) and Satisfactory Appetite
Cardiopulmonary: Dyspnea (n), Cough, Wheezing (n) and Chest Pain (n)
GI: Abdominal Pain (n), Nausea (n) and Vomiting (n)
Neuro: Weakness
Objective Data
Data Reviewed
Vital Signs / I&O / Oxygen:
Vital Signs
Temp Pulse Resp BP Pulse Ox
98.1 F 72 18 117/78 94
08/11/23 16:35 08/11/23 16:38 08/11/23 16:35 08/11/23 16:38 08/11/23 16:35
Intake and Output
08/10/23 08/11/23 08/12/23
06:59 06:59 06:59
Intake Total 1680 / 1680 250 / 250
Output Total 300 / 300 1000 / 1000
Balance -300 / -300 680 / 680 250 / 250
SaO2 94
Nasal Cannula flow liters per 2
minute
Physical Exam
General: Comfortable
HEENT: Normocephalic and Moist Mucous Membranes
Cardiovascular: Regular Rhythm, Murmur (n), Peripheral Edema (n) and Calf Tenderness (n)
Respiratory: Clear, Non-Labored Respirations and Stridor (n)
GI: Soft, Non Distended and Non Tender
Neurology: Awake, Oriented and No Motor Deficits
Skin: Dry
Labs/Micro/Reports
Lab Data
08/11/23 06:02
08/11/23 06:02
Microbiology
08/10/23 01:07 Urine Urine Culture - Preliminary
Gram negative bacilli
[2023-08-11] MEDS: ROCEPHIN 1000 MG IV (18:27)
[2023-08-11] MEDS: STERILE WATER FOR INJECTION 10 ML IV (18:28)
[2023-08-11] MEDS: KCL 20 MEQ PO (22:28)
[2023-08-11] MEDS: FLOMAX 0.400000000000000022 MG PO (22:28)
[2023-08-11] MEDS: SENOKOT 17.1999999999999993 MG PO (22:29)
[2023-08-11] MEDS: LIPITOR 40 MG PO (22:29)
[2023-08-11] MEDS: DESYREL 25 MG PO (22:32)
[2023-08-11] MEDS: MELATONIN 6 MG PO (22:35)
[2023-08-11 23:35] VITALS: BP 119/68
[2023-08-12 05:30] VITALS: BMI 31.5
[2023-08-12 07:30] LABS: Hematocrit 26.8 % (39.0-52.0); Hemoglobin 8.3 g/dL (13.0-18.0); Mean Corpuscular Hgb 24.4 pg (27.0-31.0); Mean Corpuscular Volume 78.8 fL (80.0-94.0); Mean Platelet Volume 9.6 fL (7.4-10.4); Platelet Count 172 10^3/uL (130-400); Red Cell Dist. Width 14.6 % (11.5-14.5); White Blood Cell Count 3.5 10^3/uL (4.8-10.8)
[2023-08-12 07:35] VITALS: BP 123/60
[2023-08-12 08:04] LABS: Blood Urea Nitrogen 67 mg/dl (9-20); Calcium 8.5 mg/dl (8.4-10.2); Carbon Dioxide 31 mmol/L (22-30); Chloride 98 mmol/L (98-107); Estimated Creatinine Clearance 35 ml/min; Glucose 70 mg/dl (70-99); Potassium 3.9 mmol/L (3.5-5.1); Sodium 132 mmol/L (135-145); eGFR 29.91
--- NOTE | 2023-08-12 08:35 | W.PN.HOSP.TC ---
Today's Communication/Plan
-
Consult GI
Assessment / Plan
Assessment / Plan
#Dyspnea with activity
#Worsening anemia from chronic kidney disease and iron deficiency
#Heme positive stool
Currently on room air, SpO2 at 97%, iron studies reveal iron deficiency
Peripheral vascular ultrasound�no evidence of deep venous thrombosis in lower extremities
Lung VQ scan�no evidence of pulmonary embolism
Appreciate cardiology and pulmonology input, patient's cardiac and pulmonary status are compensated
Hemoglobin 8.3 today, status post 1 unit of packed red blood cells on 08/11, hemoglobin was 7.2
Give IV iron while in hospital, resume oral iron upon discharge
Consult GI for heme positive stool -hold aspirin until seen by GI
#Chronic CHF with reduced ejection fraction [30 to 35%]
Appreciate cardiology input, continue metoprolol, GDMT limited due to renal function
Resumed Bumex today 08/11
#Permanent Atrial Fibrillation
Rate controlled on metoprolol, on aspirin status post watchman
#Nonmyocardial troponin elevation
Likely due to CKD
#Aortic stenosis S/P TAVR
#CKD stage IV
Creatinine at baseline, continue to trend
#Hyperlipidemia
Continue atorvastatin
#BPH
Continue flomax
#Recent right knee fracture manage medically
Continue pain control, PT/OT
Patient does not want to return to [facility], case management to assist
DVT prophylaxis�SCDs secondary to anemia and heme positive stool
Full code
Total time spent to see the patient on the floor, examine the patient, review data and lab results, discuss treatment plan with patient, nursing staff around 51 minutes.
Physical Exam
General: Appears chronically debilitated, no acute distress
HEENT: Normocephalic, Atraumatic, EOMI, MMM
Respiratory: Clear to Auscultation bilaterally
Cardiac: Normal S1/S2, Regular Rate and Rhythm
GI: Soft, Nontender, Nondistended, Normal Bowel Sounds
Anticipated Discharge: 24 - 48 hours
Subjective/Interval History
-
Date of Service: August 12, 2023
Patient reports having more energy after getting a unit of blood. Nursing staff reports 1 small gracie colored bowel movement, heme positive.
Objective Data
-
Labs:
Laboratory Results
08/12/23
06:12
WBC 3.5 L
Hgb 8.3 L
Hct 26.8 L
Plt Count 172
Sodium 132 L
Potassium 3.9
Chloride 98
Carbon Dioxide 31 H
BUN 67 H
Creatinine 2.2 H
Glucose 70
Calcium 8.5
Vital Signs:
Vital Signs
Temp Pulse Resp BP Pulse Ox
98.1 F 66 18 123/60 95
08/12/23 07:35 08/12/23 07:35 08/12/23 07:35 08/12/23 07:35 08/12/23 07:35
I&O
08/11/23 08/12/23 08/13/23
06:59 06:59 06:59
Intake Total 1680 / 1680 1090 / 1090
Output Total 1000 / 1000 840 / 840
Balance 680 / 680 250 / 250
[2023-08-12] MEDS: BUMEX 2 MG PO ×2 (08:55→15:57)
[2023-08-12] MEDS: LIDOCAINE 4% PATCH 2 PATCH TOPICAL (08:56)
[2023-08-12] MEDS: FLUSH (NSS) 1 FLUSH IV (08:56)
[2023-08-12] MEDS: MIRALAX 17 GRAMS PO (08:56)
[2023-08-12] MEDS: KCL 20 MEQ PO ×2 (08:56→20:32)
[2023-08-12] MEDS: TOPROL XL 25 MG PO (08:56)
--- NOTE | 2023-08-12 10:53 | PTCARENOTE ---
Dr. Turner in to see ptMD is fine with pt receiving Aspirin 81mg and Heparin SQ with heme positive stool.
--- NOTE | 2023-08-12 11:01 | CON.GI ---
Addendum entered and electronically signed by Chloe Turner MD 08/12/23 21:58:
also needs EUS as OP for pancreatic lesion with Dr. Stone, cannot have MRI has AICD and also elevated Cr/CKD.
CT 07/31/22
IMPRESSION:
1. � Significantly distended urinary bladder with mild pericystic inflammatory stranding which may represent cystitis. Correlation with urinalysis recommended. There is also moderate prostamegaly, which could also account for urinary distention.
2. � Mild bilateral hydronephrosis and hydroureter, likely physiologic in nature related to patient's distended urinary bladder. No obstructing lesions identified.
3. � Redemonstration of masslike soft tissue and stranding within the region of the pancreatic head, again suspicious for pancreatic head lesion or possibly focal pancreatitis. There is no atrophy or ductal dilatation within the distal pancreas.
Consider further evaluation with MRI as indicated.
4. � Moderate to severe cardiac enlargement.
5. � Additional findings above.
Original Note:
Consultation
-
Date/Time Consultation Requested: 08/12/23
Date/Time Consultation Performed: 08/12/23
Requesting Provider: Dr. Pereira
Performing Provider:
Reason for Consultation: Chronic ELLIE, OB positive stool
Medical History
Chief Complaint / HPI
Chief Complaint: SOB
History of Present Illness:
This is a 78M sent from 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
gastric IM, colon polyps (TA's) for SOB and is undergoing evaluation for this and has been seen by pulmonary and cardiology.� We were consulted for chronic iron deficiency anemia with OB positive stool tested yesterday.� He does have chronic iron
deficiency anemia dating back to [address] Feroz gregory then and had an endoscopy and a colonoscopy and was noted to have multiple colon polyps which were tubular adenomas and also gastric polyps subsequently had a endoscopy in May
[address] Youngblood and had pyloric gastric polypectomy which showed an inflammatory fibroid with intestinal metaplasia negative for dysplasia subsequently had gastric mapping on endoscopy in June 2021 which was negative for dysplasia but she
still showed intestinal metaplasia and was recommended repeat for surveillance in 2023.� Also had a colonoscopy in June 2021 and tattoo noted in the transverse colon and small descending colon polyp removed which was a tubular adenoma and
recommended repeat also in 2023.� Currently has no overt bleeding
Past Medical History
Past Medical History: Other ((Atrial fib), CHF (EF 30- 35%), GERD, HTN, Hypercholesterolemia, NIDDM (Patient states he is no longer diabetic and does not take any medication for this. Diet control), ICMP, Aortic stenosis, Strep bovis
bacteremia/endocarditis June 2020/July 2020, gastric IM, colon polyps (TA's), CKD)
Past Surgical History: Other (Cardiac (AICD requiring lead extraction [infection], TAVR, Watchman, EF 21%), Total right knee replacement, Urological and Other (Cataracts))
Social History
Tobacco: Non-Smoker
Alcohol: Occasional
Drug: None
Personal:
Living: [facility]
Family History
Family History: Reviewed & Not Pertinent
Allergies / Home Medications
Allergy/AdvReac Type Severity Reaction Status Date / Time
No Known Allergies Allergy Verified 08/10/23 03:09
Medication Instructions Recorded
atorvastatin 40 mg tablet 40 mg PO HS High cholesterol 09/29/22
cholecalciferol (vitamin D3) 25 25 mcg PO DAILY Supplement 12/14/22
mcg (1,000 unit) tablet (Vitamin
D3)
metoprolol succinate 25 mg 25 mg PO DAILY Blood Pressure 12/14/22
tablet,extended release 24 hr
(Toprol XL)
tamsulosin 0.4 mg capsule (Flomax) 0.4 mg PO HS Urinary Issue 12/14/22
ferrous sulfate 325 mg (65 mg 325 mg PO DAILY #30 tabs 03/14/23
iron) tablet (FeroSul)
acetaminophen 500 mg tablet (Pain 1,000 mg PO Q8H PRN mild pain 08/09/23
Relief Extra Strength
(acetaminophen))
aspirin 81 mg chewable tablet 81 mg PO DAILY Blood Clot 08/09/23
Prevention/Tx
bumetanide 2 mg tablet 2 mg PO BID Fluid 08/09/23
Retention/Swelling
docusate sodium 100 mg capsule 100 mg PO DAILY Constipation 08/09/23
lidocaine 5 % topical patch 2 patch topical DAILY Pain 08/09/23
melatonin 3 mg tablet 6 mg PO HS Sleep 08/09/23
metolazone 2.5 mg tablet 2.5 mg PO TUTH Blood Pressure 08/09/23
oxycodone 5 mg tablet 5 mg PO MOTUWETHFR Pain 08/09/23
polyethylene glycol 3350 17 gram 17 g PO DAILY PRN constipation 08/09/23
oral powder packet (Miralax)
potassium chloride 20 mEq 20 meq PO BID Electrolyte Repletion 08/09/23
tablet,extended release
sennosides 8.6 mg tablet 17.2 mg PO HS Constipation 08/09/23
trazodone 50 mg tablet 25 mg PO HS Sleep 08/09/23
Review of Systems
-
All other systems: A 12 pt ROS was Negative except as stated above in HPI
Vital Signs
Temp Pulse Resp BP Pulse Ox
98.1 F 66 18 123/60 95
08/12/23 07:35 08/12/23 08:55 08/12/23 07:35 08/12/23 08:55 08/12/23 07:35
Physical Exam
Exam
General: No Apparent Distress
HEENT: Normocephalic
Respiratory: Clear
Cardiac: S1/S2 and Murmur (ARLETH)
GI: Soft, Non Tender, Non Distended and Normal Bowel Sounds
Musculoskeletal: No Clubbing
Skin: Warm
Neuro: Awake and Oriented
Hematologic/Lymphatic: No Lymphadenopathy
Psych: Calm
Results
WBC 3.5 10^3/uL (4.8-10.8) L 08/12/23 06:12
Hgb 8.3 g/dL (13.0-18.0) L 08/12/23 06:12
Hct 26.8 % (39.0-52.0) L 08/12/23 06:12
MCV 78.8 fL (80.0-94.0) L 08/12/23 06:12
Plt Count 172 10^3/uL (130-400) 08/12/23 06:12
Absolute Neuts (auto) 4.0 10^3/uL (1.4-6.5) 08/09/23 23:40
Sodium 132 mmol/L (135-145) L 08/12/23 06:12
Potassium 3.9 mmol/L (3.5-5.1) 08/12/23 06:12
Chloride 98 mmol/L (98-107) 08/12/23 06:12
Carbon Dioxide 31 mmol/L (22-30) H 08/12/23 06:12
BUN 67 mg/dl (9-20) H 08/12/23 06:12
Creatinine 2.2 mg/dL (0.7-1.3) H 08/12/23 06:12
Calcium 8.5 mg/dl (8.4-10.2) 08/12/23 06:12
Total Bilirubin 1.4 mg/dl (0.2-1.3) H 08/09/23 23:40
AST 22 U/L (17-59) 08/09/23 23:40
ALT 11 U/L (0-50) 08/09/23 23:40
Alkaline Phosphatase 86 U/L (38-126) 08/09/23 23:40
Diagnostic Image Results:
08/10/23 VQ scan
IMPRESSION:
Low probability scan for pulmonary embolism.
08/10/23 LE dopplers
IMPRESSION:
No sonographic evidence for lower extremity venous thrombosis.
08/09/23 CXR
IMPRESSION:
Limited study with extremely low lung volumes and crowding of the central/vascular markings.
No findings to suggest pneumonia.
Prior GI Procedures:
06/22/[address] 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
�� � � � � � � � � � � - Nodular mucosa in the esophagus. Biopsied- neg for dysplasia.
�� � � � � � � � � � � - A single gastroesophageal junction polyp. Resected
�� � � � � � � � � � � and retrieved- IM neg for dysplasia
�� � � � � � � � � � � - A single submucosal papule (nodule) found in the
�� � � � � � � � � � � stomach. Keyhole biopsies obtained.
�� � � � � � � � � � � - Two biopsies were obtained in the cardia, in the
�� � � � � � � � � � � gastric fundus, in the gastric body, at the incisura
�� � � � � � � � � � � and in the gastric antrum- positive for IM neg for dysplasia, neg for h.pylori.
06/22/[address] Francois �Impression:� � � � � � - A tattoo was seen in the transverse colon. The
�� � � � � � � � � � � tattoo site appeared normal.
�� � � � � � � � � � � - One 3 mm polyp in the descending colon- TA, removed with
�� � � � � � � � � � � a cold snare. Resected and retrieved. Clip (MR
�� � � � � � � � � � � conditional) was placed.
�� � � � � � � � � � � - Non-bleeding internal hemorrhoids.
03/21/[address] Francois Impression:� � � � � � - Normal esophagus.
�� � � � � � � � � � � - One gastric polyp. Resected and retrieved. Clip (MR
�� � � � � � � � � � � conditional) was placed.- Inflammatory fibroid polyp with IM
�� � � � � � � � � � � - Normal examined duodenum.
07/15/[address] Suazo Impression:� � � � � � - Preparation of the colon was fair.
�� � � � � � � � � � � - Perianal skin tags found on perianal exam.
�� � � � � � � � � � � - The examined portion of the ileum was normal.
�� � � � � � � � � � � - Two 1 to 3 mm polyps in the mid ascending colon,
�� � � � � � � � � � � removed with a jumbo cold forceps. Resected and
�� � � � � � � � � � � retrieved- TA�s
�� � � � � � � � � � � - One 7 mm polyp in the proximal transverse colon,
�� � � � � � � � � � � removed with a cold snare. Resected and retrieved.
�� � � � � � � � � � � Clips were place- TA
�� � � � � � � � � � � - One 15 to 20 mm polyp in the mid transverse colon,
�� � � � � � � � � � � removed with a hot snare. Resected and retrieved.
�� � � � � � � � � � � Clips were placed. Injected, tattoed- TA
�� � � � � � � � � � � - Three 3 to 5 mm polyps in the transverse colon,
�� � � � � � � � � � � removed with a cold snare. Resected and retrieved.
�� � � � � � � � � � � Clips were placed- TA
�� � � � � � � � � � � - Diverticulosis in the sigmoid colon.
�� � � � � � � � � � � - Internal hemorrhoids.
07/15/[address] Suazo Impression:� � � � � � - Normal examined duodenum.
�� � � � � � � � � � � - A single gastric polyp. Biopsied.
�� � � � � � � � � � � - Erythematous mucosa in the antrum. Biopsied.
�� � � � � � � � � � � - Small hiatal hernia.
�� � � � � � � � � � � - Z-line variable, 42 cm from the incisors.
�� � � � � � � � � � � - [place]-colored mucosa. Biopsied.
�� � � � � � � � � � � - Esophageal plaques were found, suspicious for
�� � � � � � � � � � � candidiasis. Brushings performed.
Assessment / Plan
-
1. Chronic anemia multifactorial from iron deficiency anemia from possible chronic GI blood loss with probable small bowel angioectasias (given h/o s/p TAVR)and also from anemia secondary to chronic kidney disease. He was OB positive but
currently has no overt bleeding and hemoglobin slightly dropped yesterday but overall close to baseline and stable posttransfusion. He also is status post watchman and has been off anticoagulation okay to resume 81 mg of aspirin. given his age and
multiple comorbidities we will hold on repeat endoscopy colonoscopy unless he has active bleeding but if over the next couple of weeks medically stable and family and patient agreeable to proceed with endoscopy and colonoscopy will schedule this as
outpatient. Continue IV iron infusions he is also known to hematology from the past and has received iron in the past also.
2. History of gastric intestinal metaplasia no dysplasia negative for H. pylori due for endoscopy this year if medically stable will do as outpatient
3 history of multiple colon polyps which were tubular adenomas as described above on colonoscopies X 2 in 2020 also due for colonoscopy this year again if medically stable and patient and family are agreeable to proceed given his age and
comorbidities then will schedule as outpatient. Will sign off and will be available as needed please call back with any further signs of bleeding
Data Reviewed
-
Radiology: Report Reviewed by me
-
-
Thank you for consultation and allowing me to participate in the patient's care. Please call the project controller GI physician during the after hours with any questions or concerns.
[2023-08-12] MEDS: HEPARIN 5000 UNITS SC (11:07)
[2023-08-12] MEDS: LOW STRENGTH ASPIRIN 81 MG PO (11:07)
[2023-08-12 15:25] VITALS: BP 107/54
--- NOTE | 2023-08-12 15:33 | CM ---
Case Management Consult completed
Met with patient at bedside
Patient stated that he did not want to return to [facility]; list of facilities provided
Referrals sent to [facility], [facility], and [facility] via [facility]
Eventually patient stated that he would like to arrange for private duty caregivers in the home for him and his ; plans to speak with his siblings
[2023-08-12] MEDS: FERRLECIT 110 MG IV (15:57)
[2023-08-12 16:05] VITALS: BP 107/74; PULSE 72; O2SAT 98
[2023-08-12 16:34] VITALS: BMI 31.2
[2023-08-12] MEDS: STERILE WATER FOR INJECTION 10 ML IV (18:52)
[2023-08-12] MEDS: ROCEPHIN 1000 MG IV (18:52)
[2023-08-12] MEDS: TYLENOL 1000 MG PO (20:48)
[2023-08-12] MEDS: LIPITOR 40 MG PO (22:13)
[2023-08-12] MEDS: DESYREL 25 MG PO (22:13)
[2023-08-12] MEDS: FLOMAX 0.400000000000000022 MG PO (22:14)
[2023-08-12] MEDS: SENOKOT 17.1999999999999993 MG PO (22:14)
[2023-08-12] MEDS: MELATONIN 6 MG PO (22:14)
[2023-08-12 23:43] VITALS: BP 128/66
[2023-08-13 06:00] VITALS: BMI 30.7
[2023-08-13 06:19] LABS: Hemoglobin 8.4 g/dL (13.0-18.0); Mean Corp Hgb Conc. 31.1 g/dL (33.0-37.0); Mean Corpuscular Hgb 24.6 pg (27.0-31.0); Mean Corpuscular Volume 79.2 fL (80.0-94.0); Mean Platelet Volume 10.2 fL (7.4-10.4); Platelet Count 206 10^3/uL (130-400); Red Blood Cell Count 3.41 10^6/uL (4.70-6.10); Red Cell Dist. Width 14.6 % (11.5-14.5); White Blood Cell Count 3.4 10^3/uL (4.8-10.8)
[2023-08-13 06:31] LABS: Blood Urea Nitrogen 61 mg/dl (9-20); Calcium 8.7 mg/dl (8.4-10.2); Carbon Dioxide 33 mmol/L (22-30); Chloride 98 mmol/L (98-107); Estimated Creatinine Clearance 36 ml/min; Glucose 79 mg/dl (70-99); Magnesium 2.2 mg/dl (1.6-2.3); Phosphorus 3.2 mg/dl (2.5-4.5); Potassium 4.2 mmol/L (3.5-5.1); Sodium 135 mmol/L (135-145); eGFR 31.63
[2023-08-13 07:35] VITALS: BP 114/55
[2023-08-13] MEDS: LOW STRENGTH ASPIRIN 81 MG PO (09:20)
[2023-08-13] MEDS: KCL 20 MEQ PO (09:20)
[2023-08-13] MEDS: LIDOCAINE 4% PATCH 2 PATCH TOPICAL (09:21)
[2023-08-13] MEDS: MIRALAX PO ×2 (09:21→09:23)
[2023-08-13] MEDS: BUMEX 2 MG PO ×2 (09:21→15:01)
[2023-08-13] MEDS: TOPROL XL 25 MG PO (09:21)
--- NOTE | 2023-08-13 11:14 | CM ---
Addendum entered by Ceci Goldsmith 08/13/23 15:08:
Home address [place] [address]
Addendum entered by Ceci Goldsmith 08/13/23 15:00:
Pt denied at majority of SNFs
Accepted at [facility] and for return at [facility]
Bedside meeting with pt- adamantly refusing SNF at this time
He has made arrangements for family to provide round the clock care at home
Call with brother/Orestes who does confirm he has made arrangements for family to provide care at home
Reviewed PT/OT evals in details- he notes family will provide care
Referral sent to [facility] per patient request
SW requested for assistance with HCBS
Pt notes full complement of DMEs at home already
IMM verbally completed- copy provided bedside
Medical necessity and transport form on chart
Brother aware of transport time
VN order on chart
Private duty list provided to pt as well
Discharge Disposition- home with [facility]
Fax- [phone]
Original Note:
CM met [facility] pt bedside
Pt denied at [facility] requesting financial nita
Lengthy dc planning discussion
Pt does not wish to submit financial nita as he is was made aware of approx private pay costs
He is aware if new SNF is arranged, arrangements for spouse cannot be made by CM
Spouse is a LT resident at [facility] placed there by [facility]
He would like to proceed with finding new SNF for himself
Additional SNF referrals sent in the [place] area per his request- pending
Discharge Disposition- SNF
[2023-08-13] MEDS: FERRLECIT 110 MG IV (13:13)
--- NOTE | 2023-08-13 13:46 | W.PN.HOSP.TC ---
Today's Communication/Plan
-
Patient is stable to be discharged.
Assessment / Plan
Assessment / Plan
Impression:
Dyspnea
Chronic anemia
Heme positive stool
Congestive heart failure with reduced ejection fraction
Permanent A-fib
Elevated troponins
Aortic stenosis s/p TAVR
Chronic kidney disease stage IV
Dyslipidemia
Narcotic dependence for chronic pain
BPH
Obesity
Chronic ambulatory dysfunction
Plan:
#Dyspnea
Currently on room air, SpO2 at 97%
Uses home O2 as required at nighttime, 1-2 L.
Denies previous h/o VTE
D-dimer elevated 2.57
Chest x-ray with no gross infiltrates
Peripheral vascular ultrasound�no evidence of deep venous thrombosis in lower extremities
Lung VQ scan�no evidence of pulmonary embolism
#Chronic anemia from chronic kidney disease and iron deficiency
Hemoglobin 8.4 today
S/p 1 unit of packed RBC transfusion on 08/11/23
IV iron
# Heme positive stool
GI consult note: 1.� Chronic anemia multifactorial from iron deficiency anemia from possible chronic GI blood loss with probable small bowel angioectasias (given h/o s/p TAVR)and also from anemia secondary to chronic kidney disease.� He was OB
positive but currently has no overt bleeding and hemoglobin slightly dropped yesterday but overall close to baseline and stable posttransfusion.� He also is status post watchman and has been off anticoagulation okay to resume 81 mg of aspirin. given
his age and multiple comorbidities we will hold on repeat endoscopy colonoscopy unless he has active bleeding but if over the next couple of weeks medically stable and family and patient agreeable to proceed with endoscopy and colonoscopy will
schedule this as outpatient.� Continue IV iron infusions he is also known to hematology from the past and has received iron in the past also.
2.� History of gastric intestinal metaplasia no dysplasia negative for H. pylori due for endoscopy this year if medically stable will do as outpatient
3 history of multiple colon polyps which were tubular adenomas as described above on colonoscopies X 2 in 2020 also due for colonoscopy this year again if medically stable and patient and family are agreeable to proceed given his age and
comorbidities then will schedule as outpatient.� Will sign off and will be available as needed please call back with any further signs of bleeding
#Chronic CHF with reduced ejection fraction
Echo 08/10/2023, left ventricular ejection fraction 30 to 35% with global hypokinesis
Continue metoprolol
GDMT limited due to renal function
Bumetanide resumed
Monitor inputs and outputs
#Permanent Atrial Fibrillation
Stable & rate controlled
Continue metoprolol succinate
S/p Watchman 04/11/2022 on ASA 81mg
#Abnormal troponin, 0.060, 0.049,
nonischemic myocardial injury in the setting of CKD
Denies angina
ECG ventricularly paced
Monitor trend
# Aortic stenosis S/P TAVR
# CKD stage IV
Creatinine 2.5, baseline BUN 78
Monitor
# Dyslipidemia
Continue atorvastatin
# BPH
Continue trazodone
# DVT prophylaxis
SCDs secondary to anemia and heme positive stool
Anticipated Discharge: Within 24 hours
Subjective/Interval History
-
Date of Service: August 13, 2023
Objective Data
-
Labs:
Laboratory Results
08/13/23
05:09
WBC 3.4 L
Hgb 8.4 L
Hct 27.0 L
Plt Count 206
Sodium 135
Potassium 4.2
Chloride 98
Carbon Dioxide 33 H
BUN 61 H
Creatinine 2.1 H
Glucose 79
Calcium 8.7
Vital Signs:
Vital Signs
Temp Pulse Resp BP Pulse Ox
97.9 F 70 20 114/55 97
08/13/23 07:35 08/13/23 09:21 08/13/23 07:35 08/13/23 09:21 08/13/23 07:35
I&O
08/12/23 08/13/23 08/14/23
06:59 06:59 06:59
Intake Total 1090 / 1090 830 / 830 800 / 800
Output Total 840 / 840 340 / 340
Balance 250 / 250 490 / 490 800 / 800
Review of Systems
-
All other systems: Reviewed and negative (As per history)
Physical Exam
-
General: Well Developed and Well Nourished
HEENT: Normocephalic and Atraumatic
Respiratory: Clear to Auscultation
Cardiac: Regular Rhythm and S1/S2
GI: Soft, Nontender and Nondistended
Skin: Warm and Dry
Neuro: Awake, Alert, Oriented and AO x 3
[2023-08-13 14:45] VITALS: BP 115/63; PULSE 72
[2023-08-13 15:15] VITALS: BP 115/63
[2023-08-13] MEDS: STERILE WATER FOR INJECTION IV (17:20)
--- NOTE | 2023-08-14 08:02 | PN.CDI ---
CDI
- -
CDI:
Physician Documentation Request
Admit Date: 08/10/23 02:58
Dear Doctor Ahmet,
Please review the following and provide your response in the progress notes.
Clinical Indicators:
- 2/4 Urine culture indicates Acinet baumannii/haemolyticus, collected on admission
- 2/3-2/4 IV abx Ceftriaxone given
- Medication not given on discharge
Please indicate in your progress notes the diagnosis with the above findings and the use of IV antibiotics:
____ - UTI is a valid diagnosis (Please include it in your progress notes)
____ - UTI is not a valid diagnosis for this patient
____ - Other
Use of terms such as suspected, likely, concern for, or probable are acceptable for a diagnosis that is being evaluated, monitored or treated as if it exists and can be coded in the inpatient setting, when documented at the time of discharge.
Thank you,
Corin Arboleda RN
CDI Specialist
Please use your independent medical judgment in providing your response.
--- NOTE | 2023-08-14 09:09 | W.DS.TRANS ---
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
-
Discharge Instructions:
Sleep Apnea Risk High
Discharge Diagnosis/Procedures Impression:
Presenting from rehab with complaints of cough
and chest pain.
Conditions prior to admission:
Chronic CHF reduced EF/nonischemic
cardiomyopathy LVEF 30-35%
Permanent atrial fibrillation
Not on anticoagulation status post watchman
22
Aortic stenosis status post TAVR
CKD stage IV baseline creatinine 2.[address]
History of staph epi bacteremia due to infected
pacemaker lead/lead extraction 08/31 with
reimplantation of pacemaker at [facility]
Anemia of chronic disease.
Dyslipidemia
Chronic pain requiring narcotics administration
BPH
Obesity with BMI of 30
Chronic ambulatory dysfunction
Pancreatic mass on CT scan
Others Tests MRI of the abdomen to evaluate for pancreatic
mass.
Instructions:
Stand-Alone Forms:
Changes to Home Medications: No
Discharge Medications:
DC Medications w/original date entered in [employer]
atorvastatin 40 mg tablet 40 mg PO HS High cholesterol 09/29/22
cholecalciferol (vitamin D3) 25 mcg (1,000 unit) tablet (Vitamin D3) 25 mcg PO DAILY Supplement 12/14/22
metoprolol succinate 25 mg tablet,extended release 24 hr (Toprol XL) 25 mg PO DAILY Blood Pressure 12/14/22
tamsulosin 0.4 mg capsule (Flomax) 0.4 mg PO HS Urinary Issue 12/14/22
ferrous sulfate 325 mg (65 mg iron) tablet (FeroSul) 325 mg PO DAILY #30 tabs 03/14/23
acetaminophen 500 mg tablet (Pain Relief Extra Strength (acetaminophen)) 1,000 mg PO Q8H PRN mild pain 08/09/23
aspirin 81 mg chewable tablet 81 mg PO DAILY Blood Clot Prevention/Tx 08/09/23
bumetanide 2 mg tablet 2 mg PO BID Fluid Retention/Swelling 08/09/23
docusate sodium 100 mg capsule 100 mg PO DAILY Constipation 08/09/23
lidocaine 5 % topical patch 2 patch topical DAILY Pain 08/09/23
melatonin 3 mg tablet 6 mg PO HS Sleep 08/09/23
metolazone 2.5 mg tablet 2.5 mg PO TUTH Blood Pressure 08/09/23
oxycodone 5 mg tablet 5 mg PO MOTUWETHFR Pain 08/09/23
polyethylene glycol 3350 17 gram oral powder packet (Miralax) 17 g PO DAILY PRN constipation 08/09/23
potassium chloride 20 mEq tablet,extended release 20 meq PO BID Electrolyte Repletion 08/09/23
sennosides 8.6 mg tablet 17.2 mg PO HS Constipation 08/09/23
trazodone 50 mg tablet 25 mg PO HS Sleep 08/09/23
Home Medication Changes
Pending Results: No
== END 2023-08-13 20:54 | disposition home health service (06) | DRG 812 ==
LOC: 4 EAST ACU 02:58
PROVIDERS: Clinical Nurse Specialist Family Health; Family Medicine; Nurse Practitioner Gerontology; ADMITTING PHYSICIAN Internal Medicine; ATTENDING PHYSICIAN Internal Medicine; CONSULT PHYSICIAN Internal Medicine Gastroenterology; EMERGENCY PHYSICIAN Student in an Organized Health Care Education/Training Program; FAMILY PHYSICIAN Internal Medicine; OTHER PHYSICIAN Internal Medicine; OTHER PHYSICIAN Internal Medicine Pulmonary Disease; REFERRING PHYSICIAN Family Medicine
PROC: 30233N1 Transfusion of Nonautologous Red Blood Cells into Peripheral Vein, Percutaneous Approach (ICD-10-PCS; 2023-08-11)
DX: D50.0 Iron deficiency anemia secondary to blood loss (chronic) (principal); N18.4 Chronic kidney disease, stage 4 (severe); I50.22 Chronic systolic (congestive) heart failure; I13.0 Hypertensive heart and chronic kidney disease with heart failure and stage 1 through stage 4 chronic kidney disease, or unspecified chronic kidney disease; I48.21 Permanent atrial fibrillation; I42.8 Other cardiomyopathies; N17.9 Acute kidney failure, unspecified; I5A Non-ischemic myocardial injury (non-traumatic); F11.20 Opioid dependence, uncomplicated; R06.02 Shortness of breath; K55.20 Angiodysplasia of colon without hemorrhage; R41.82 Altered mental status, unspecified; E78.00 Pure hypercholesterolemia, unspecified; K21.9 Gastro-esophageal reflux disease without esophagitis; I08.3 Combined rheumatic disorders of mitral, aortic and tricuspid valves; R09.02 Hypoxemia; N40.0 Benign prostatic hyperplasia without lower urinary tract symptoms; G47.33 Obstructive sleep apnea (adult) (pediatric); E66.09 Other obesity due to excess calories; R82.71 Bacteriuria; R26.2 Difficulty in walking, not elsewhere classified; R19.5 Other fecal abnormalities; G89.29 Other chronic pain; K86.9 Disease of pancreas, unspecified; D63.1 Anemia in chronic kidney disease; Z95.810 Presence of automatic (implantable) cardiac defibrillator; Z87.440 Personal history of urinary (tract) infections; Z87.19 Personal history of other diseases of the digestive system; Z87.891 Personal history of nicotine dependence; Z95.3 Presence of xenogenic heart valve; Z96.651 Presence of right artificial knee joint; Z68.30 Body mass index [BMI] 30.0-30.9, adult; Z86.16 Personal history of COVID-19; Z86.010 Personal history of colon polyps
CPT/HCPCS: 71046; 78582; 80048; 80053; 81003; 81015; 82607; 82728; 83540; 83550; 83735; 83880; 84100; 84443; 84484; 85025; 85027; 85379; 86850; 86900; 86901; 86920; 87077; 87086; 87186; 93005; 93306; 93970; 97162; 97530; 99285; A9540; A9567; J2916; P9016

== ENCOUNTER 2023-08-22 02:30 | Emergency (ER) | payer MEDICARE, OTHER, SELFPAY ==
[2023-08-22 02:37] VITALS: BP 133/61; BMI 34.5
[2023-08-22 03:00] VITALS: BP 125/60
--- NOTE | 2023-08-22 03:00 | ED.GENMED ---
History of Present Illness
<JOSE ROBERTO Millan - Last Filed: 08/22/23 04:16>
General
Chief Complaint: Musculo-Skeletal Complaint
Source: patient
Exam Limitations: none
Time Seen by Provider: 08/22/23 02:36
Nursing documentation reviewed up to this point in time: agreed with
Travel History
Have you had any contact with someone who has COVID-19?: No
Do you have any symptoms of coronavirus? Fever > 100 degrees, chills, cough, shortness of breath, sore throat, loss of taste or smell, muscle aches, or headache?: No
History of Present Illness
History of Present Illness:
78 y/o M presents to ED complaining of coccyx pain x 1 day. He reports the pain is a deep ache, rated 10/10. He states the pain comes and goes and occurs multiple times a day. It lasts about 1-2 minutes. He took Tylenol 500mg at midnight. He denies
radiation of pain or previous history of pain in the past. He denies any pain when touching, visible lump or redness. He also denies change of pain with movement. No trauma reported. No pain with bowel movements. Patient states he is sedentary and
does not walk much.
If applicable-neuro sx onset
Onset of symptoms known: Yes
Date of onset of symptoms: 08/21/23
Past History
<JOSE ROBERTO Millan - Last Filed: 08/22/23 04:16>
Past History
ED Past Medical History: Arrthythmia (Atrial fib), CHF (ED 20%), GERD, HTN, Hypercholesterolemia, NIDDM (Patient states he is no longer diabetic and does not take any medication for this. Diet control), Other (Cardiomyopathy, Aortic stenosis, EF
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
ED Past Surgical History: Cardiac (AICD, TAVR, Watchman, EF 21%), Orthopedic (Total right knee replacement), Urological and Other (Cataracts)
Patient has exhibited threatening behavior?: No
Social History
Tobacco: Non-smoker
Alcohol: None
Drug: None
Personal:
Living: with family
Employment: Retired
Family History
Family History: Other
Review of Systems
<JOSE ROBERTO Millan - Last Filed: 08/22/23 04:16>
Review of Systems
Allergies reviewed?: Yes
All Other Systems: ROS reviewed and negative except as documented in HPI and ROS
Constitutional: Reports no symptoms
EENT: Reports no symptoms
Respiratory: Reports no symptoms
Cardiac: Reports no symptoms
ABD/GI: Reports no symptoms
: Reports no symptoms
Musculoskeletal: Reports no symptoms
Skin: Reports no symptoms
Neurological: Reports no symptoms
Endocrine: Reports no symptoms
Hematologic/Lymphatic: Reports no symptoms
Psychiatric: Reports no symptoms
Phy Exam
<JOSE ROBERTO Millan - Last Filed: 08/22/23 04:16>
General Physical Exam
General Presentation: well appearing and no apparent distress
General age: appears stated age
General Skin: warm and dry
General Habitus: normal
General Mental: alert
General Hydration: appears well hydrated
Cardiovascular Exam
Cardiovascular Exam: regular rate/rhythm, no edema, no gallop, no murmur and normal peripheral pulses
Pulmonary Exam
Pulmonary Exam: lungs clear, no respiratory distress, no rales, no crackles and no rhonchi
Gastrointestinal Exam
Gastrointestinal Exam: normal bowel sounds, non tender, soft and non distended
Musculoskeletal Exam
Musculoskeletal Exam: full ROM
Skin Exam
Skin Exam: normal color, warm/dry, no rash and no petechia
Psychiatric Exam
Psychiatric Exam: normal mood/affect
Course
<JOSE ROBERTO Millan Last Filed: 08/22/23 04:16>
Orders/Labs/Results
Orders:
Orders
08/22/23 03:00
Coccyx/Sacrum, 2 View CR [CR Sacrum/coccyx Min 2 View] Urgent
Comment:
Reason For Exam: pain
08/22/23 04:07
Magnesium Citrate [Citroma] 300 ml PO ONCE ONE
Vital Signs
Initial and Last Documented VS:
Initial Vital Signs
Temp Pulse Resp BP Pulse Ox
98.1 F 72 18 133/61 99
08/22/23 02:37 08/22/23 02:37 08/22/23 02:37 08/22/23 02:37 08/22/23 02:37
Last Documented Vital Signs
Temp Pulse Resp BP Pulse Ox
98.1 F 72 18 133/61 99
08/22/23 02:37 08/22/23 02:37 08/22/23 02:37 08/22/23 02:37 08/22/23 02:37
<Sam Chung, DO - Last Filed: 08/22/23 04:11>
Orders/Labs/Results
Orders:
Orders
08/22/23 03:00
Coccyx/Sacrum, 2 View CR [CR Sacrum/coccyx Min 2 View] Urgent
Comment:
Reason For Exam: pain
08/22/23 04:07
Magnesium Citrate [Citroma] 300 ml PO ONCE ONE
Vital Signs
Initial and Last Documented VS:
Initial Vital Signs
Temp Pulse Resp BP Pulse Ox
98.1 F 72 18 133/61 99
08/22/23 02:37 08/22/23 02:37 08/22/23 02:37 08/22/23 02:37 08/22/23 02:37
Last Documented Vital Signs
Temp Pulse Resp BP Pulse Ox
98.1 F 72 18 133/61 99
08/22/23 02:37 08/22/23 02:37 08/22/23 02:37 08/22/23 02:37 08/22/23 02:37
<JOSE ROBERTO Millan - Last Filed: 08/22/23 04:16>
*Critical Care Note
Total Time (30-74mins, 75-104mins- exclusive of procedures): Not Applicable
ED Attending Note
<JOSE ROBERTO Millan - Last Filed: 08/22/23 04:16>
-
Portions of this chart may have been created with voice recognition software.� Occasional wrong word or��sound alike� substitutions may have occurred due to the inherent limitations of voice recognition software.
<Sam Chung DO - Last Filed: 08/22/23 04:11>
ED Attending Note
Patient seen and examined by attending physician: Yes
I performed the substantive portion of visit, reviewed & personally made and approve the management plan that is documented in note by myself or JENNIFER.: Yes
ED Attending Note:
This a pleasant 78-year-old male presents with coccyx pain for the last day. He states that the pain is deep. He states that it is exacerbated with bowel movements. He rates it 10 out of 10 when its at its worst. He reports it waxes and wanes
throughout the day. When he gets that it is approximate 1 to 2 minutes in length. Patient denies any trauma. Patient was seen in conjunction with the PA student. I have reviewed and agree with the history and treatment plan presented. On my
independent physical exam, patient is awake, alert, and oriented x3, no acute distress at time of exam. Heart is regular rate and rhythm. Lungs are clear bilaterally. Abdomen is soft without any current tenderness to palpation. Moves all 4
extremities. Skin is warm and dry.
X-ray of the abdomen pelvis show fecal burden in the lower abdomen. Open patient has suppository, enema, or disimpaction. Patient refused all 3 instead preferring oral regimen. I offered him magnesium citrate which she agreed. Patient to be
discharged home
Discharge Plan
Departure
Patient Disposition: Home (Routine Discharge)
Date of Disposition: 08/22/23
Time of Disposition: 04:08
Patient with high blood pressure during this ER visit?: Yes
Condition: Good
Discharge Problem:
Acute coccygeal pain, Constipation
Instructions: Constipation in adults, BLOOD PRESSURE
Prescriptions:
No Action
atorvastatin 40 MG tablet
40 mg PO HS
metoprolol succinate [Toprol XL] 25 mg Tablet Extended Release 24 Hr
25 mg PO DAILY
tamsulosin [Flomax] 0.4 mg Capsule
0.4 mg PO HS
cholecalciferol (vitamin D3) [Vitamin D3] 25 mcg (1,000 unit) Tablet
25 mcg PO DAILY
ferrous sulfate [FeroSul] 325 mg (65 mg iron) Tablet
325 mg PO DAILY Qty: 30 0RF
metolazone 2.5 mg Tablet
2.5 mg PO TUTH
sennosides 8.6 mg Tablet
17.2 mg PO HS
bumetanide 2 mg tablet
2 mg PO BID
trazodone 50 mg Tablet
25 mg PO HS
polyethylene glycol 3350 [Miralax] 17 gram Powder In Packet
17 g PO DAILY PRN (Reason: constipation)
melatonin 3 mg Tablet
6 mg PO HS
lidocaine 5 % Adhesive Patch,Medicated
2 patch TOPICAL DAILY
docusate sodium 100 mg Capsule
100 mg PO DAILY
aspirin 81 mg Tablet,Chewable
81 mg PO DAILY
oxycodone 5 mg Tablet
5 mg PO MOTUWETHFR
Patient Comments:
08/09/2023: Clarified with intermediate 10mg Prior to therapy discontinued today, and new order for 5mg Prior to therapy to start today.
Rx Instructions:
Give 30 mins prior to therapy
potassium chloride 20 mEq Tablet Extended Release
20 meq PO BID
acetaminophen [Pain Relief ES (acetaminophen)] 500 mg tablet
1,000 mg PO Q8H PRN (Reason: mild pain)
Activity Restrictions/Additional Instructions:
Please drink half the bottle of mag citrate provided. Wait 6 hours then drink the other half if you do not get results from the first dose. Continue to take your docusate sodium as a stool softener
It was a pleasure meeting you and taking part in your care. We hope for your continued healing and wellness.
Please read discharge instructions in their entirety. However, they are for general education and may not describe your exact diagnosis at discharge. Information on your ER visit and medical conditions were discussed with you along with appropriate
follow up information...
If indicated, please take your medications as instructed and indicated on discharge paperwork.
Please schedule a follow up appointment as directed. Call to schedule an appointment
Please return to the emergency department with ANY change in, persisting, or worsening of symptoms. If any of your symptoms do not improve, or persist, or become more severe within 6-12 hours, please return to the emergency department for further
care.
Please return to the emergency department if you develop a headache, neck pain/stiffness, fever greater than 100.4F, chest pain, shortness of breath, persistent nausea, vomiting, slurred speech, difficulty walking, numbness/tingling, weakness, signs
of infection or any other symptoms that are worrisome to you.
If you have any questions or concerns please do not hesitate to call the Hospital at or E-mail me directly at [email or web address]
Interventions
Interventions:
*Risk Screen - Suicide Last Done: 08/22/23 02:37
*General Assessment Last Done: 08/22/23 02:37
*Neglect/Abuse Screening Last Done: 08/22/23 02:37
ED- Fall Risk Assessment Last Done: 08/22/23 02:37
ED-Musculoskeletal Assessment Last Done: 08/22/23 02:37
[2023-08-22] MEDS: CITROMA 300 ML PO (04:09)
--- NOTE | 2023-08-22 05:13 | EDRN ---
Acute care bedside to pick the patient up and take him home. Patient initially stated that his was home and now states that his brother should be there to let him in. Called brother (erwin) who stated that he was at his own home which was 1 hour
away. Patient has no one at his home so acute care is unable to take him if there is no one there to receive him. Patient back on ED stretcher at this time.
[2023-08-22 08:41] VITALS: BP 124/63
== END 2023-08-22 09:45 | disposition home or self-care (01) ==
LOC: EMR 02:30
PROVIDERS: EMERGENCY PHYSICIAN Student in an Organized Health Care Education/Training Program; FAMILY PHYSICIAN Family Medicine
DX: M53.3 Sacrococcygeal disorders, not elsewhere classified (principal); K59.00 Constipation, unspecified; I48.91 Unspecified atrial fibrillation; I11.0 Hypertensive heart disease with heart failure; I50.9 Heart failure, unspecified; E78.00 Pure hypercholesterolemia, unspecified; E11.36 Type 2 diabetes mellitus with diabetic cataract; I35.0 Nonrheumatic aortic (valve) stenosis; K21.9 Gastro-esophageal reflux disease without esophagitis; Z95.810 Presence of automatic (implantable) cardiac defibrillator; Z96.651 Presence of right artificial knee joint
CPT/HCPCS: 99283; 72220

== ENCOUNTER 2023-08-23 15:01 | Emergency (ER) | payer MEDICARE, OTHER, SELFPAY ==
[2023-08-23 15:07] VITALS: BMI 34.8
[2023-08-23 15:17] VITALS: BP 112/53
[2023-08-23 15:30] LABS: % Basophils 0.2 % (0-2); % Eosinophils 0.7 % (0-6); % Immature Granulocytes 0.4 % (0-0.5); % Lymphocytes 21.3 % (20.5-51.1); % Monocytes 12.3 % (1.7-9.3); % Neutrophils 65.1 % (42.2-75.2); Absolute Monocytes 0.6 10^3/uL (0.1-0.6); Absolute Neutrophils 2.9 10^3/uL (1.4-6.5); Hematocrit 28.9 % (39.0-52.0); Hemoglobin 9.2 g/dL (13.0-18.0); Mean Corp Hgb Conc. 31.8 g/dL (33.0-37.0); Mean Corpuscular Hgb 24.9 pg (27.0-31.0); Mean Corpuscular Volume 78.3 fL (80.0-94.0); Mean Platelet Volume 9.6 fL (7.4-10.4); Nucleated Red Blood Cells % 0 % (-); Platelet Count 163 10^3/uL (130-400); Red Blood Cell Count 3.69 10^6/uL (4.70-6.10); Red Cell Dist. Width 17.1 % (11.5-14.5); White Blood Cell Count 4.5 10^3/uL (4.8-10.8)
[2023-08-23 15:47] LABS: ALT (SGPT) 17 U/L (0-50); AST (SGOT) 27 U/L (17-59); Albumin 3.6 g/dl (3.5-5.0); Alkaline Phosphatase 90 U/L (38-126); Blood Urea Nitrogen 76 mg/dl (9-20); Carbon Dioxide 35 mmol/L (22-30); Chloride 98 mmol/L (98-107); Estimated Creatinine Clearance 33 ml/min; Glucose 125 mg/dl (70-99); Potassium 3.7 mmol/L (3.5-5.1); Sodium 138 mmol/L (135-145); Total Bilirubin 1.1 mg/dl (0.2-1.3); Total Protein 6.4 g/dl (6.3-8.2); eGFR 28.35
[2023-08-23] MEDS: OMNIPAQUE 50 ML PO (17:45)
[2023-08-23 17:51] VITALS: BP 123/77
[2023-08-23 18:00] VITALS: BP 120/56
[2023-08-23 19:00] VITALS: BP 139/56
--- NOTE | 2023-08-23 19:18 | ED.GENMED ---
History of Present Illness
General
Chief Complaint: Weakness
Source: patient, records and ambulance crew
Exam Limitations: none
Time Seen by Provider: 08/23/23 15:17
Nursing documentation reviewed up to this point in time: agreed with
Travel History
Have you had any contact with someone who has COVID-19?: No
Do you have any symptoms of coronavirus? Fever > 100 degrees, chills, cough, shortness of breath, sore throat, loss of taste or smell, muscle aches, or headache?: No
History of Present Illness
History of Present Illness:
78-year-old male with history as documented presents for evaluation of rectal pain. Patient seen in this emergency room yesterday with similar complaints had an abdominal x-ray which showed significant constipation was treated with magnesium
citrate which he took. He says he did have a bowel movement today but he still having rectal pain. He says pain seems to wax and wane he describes an intense pressure in his rectum. No clear triggering or relieving factors noted. He says the
pain is been ongoing for the past few days. He denies any fevers or chills. He denies any nausea or vomiting. He denies any pain in his abdomen. He denies any other complaints today.
Past History
Past History
ED Past Medical History: Arrthythmia (Atrial fib), CHF (ED 20%), GERD, HTN, Hypercholesterolemia, NIDDM (Patient states he is no longer diabetic and does not take any medication for this. Diet control), Other (Cardiomyopathy, Aortic stenosis, EF
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
ED Past Surgical History: Cardiac (AICD, TAVR, Watchman, EF 21%), Orthopedic (Total right knee replacement), Urological and Other (Cataracts)
Patient has exhibited threatening behavior?: No
Social History
Tobacco: Non-smoker
Alcohol: None
Drug: None
Personal:
Living: with family
Employment: Retired
Family History
Family History: Other
Review of Systems
Review of Systems
All Other Systems: ROS reviewed and negative except as documented in HPI and ROS
Constitutional: Denies fever or chills
Respiratory: Denies trouble breathing
Cardiac: Denies chest pain
ABD/GI: Reports constipated; Denies abdominal pain, nausea, vomiting or diarrhea
: Denies flank pain
Musculoskeletal: Denies neck pain or back pain
Neurological: Denies headache, weakness or numbness
Phy Exam
Physical Exam
Physical Exam:
General: Awake, alert; no acute distress
Head: Normocephalic, atraumatic
Eyes: Conjunctiva normal, sclera anicteric
Throat: Airway intact, handling secretions
Neck: Trachea midline, supple without meningismus
Lungs: Clear to auscultation bilaterally, no wheezing, rales, rhonchi
Heart: Regular rate and rhythm, no murmurs, gallops, or rubs
Abd: Soft, non distended, nontender
Rectal: No anal fissures or hemorrhoids noted, some soft stool in the rectal vault no impaction noted; no significant tenderness on rectal exam
Neuro: No gross deficit
Skin: no rash
Extremities: Warm well-perfused
Scores
Heart Failure Risk
Heart Failure Risk Score: Not Applicable
Heart Score for Chest Pain Patients
STEMI patient?: Not applicable
Withdrawal Assessment of Alcohol
Withdrawal Assessment Completed?: Not applicable
Course
Orders/Labs/Results
Orders:
Orders
08/23/23 15:20
Complete Blood Count/With Diff Urgent
Comprehensive Metabolic Panel Urgent
08/23/23 17:15
Iohexol [Omnipaque] See Protocol PO NOW STA
08/23/23 17:16
CT Abd/pel (oral only)-DH Only Urgent
Comment:
Reason For Exam: rectal pain
08/23/23 17:59
Iohexol [Omnipaque] 50 ml .ROUTE .STK-MED ONE
08/23/23 21:36
Enema- Treatment ONCE
Type: Milk of Molasses
Abnormal Lab Results
08/23/23
15:20
WBC 4.5 L 10^3/uL
(4.8-10.8)
RBC 3.69 L 10^6/uL
(4.70-6.10)
Hgb 9.2 L g/dL
(13.0-18.0)
Hct 28.9 L %
(39.0-52.0)
MCV 78.3 L fL
(80.0-94.0)
MCH 24.9 L pg
(27.0-31.0)
MCHC 31.8 L g/dL
(33.0-37.0)
RDW 17.1 H %
(11.5-14.5)
Absolute Lymphs (auto) 1.0 L 10^3/uL
(1.2-3.4)
Monocytes % 12.3 H %
(1.7-9.3)
Carbon Dioxide 35 H mmol/L
(22-30)
BUN 76 H mg/dl
(9-20)
Creatinine 2.3 H mg/dL
(0.7-1.3)
Glucose 125 H mg/dl
(70-99)
08/23/23 15:20
08/23/23 15:20
Vital Signs
Initial and Last Documented VS:
Initial Vital Signs
Temp Pulse BP Pulse Ox
36.8 C 66 112/53 97
08/23/23 15:17 08/23/23 15:17 08/23/23 15:17 08/23/23 15:17
Last Documented Vital Signs
Temp Pulse Resp BP Pulse Ox
36.8 C 70 16 135/90 97
08/23/23 15:17 08/23/23 17:50 08/23/23 17:50 08/23/23 21:00 08/23/23 18:31
MDM/Problems Addressed
Differential Diagnosis Includes:
Proctitis, stercoral colitis, constipation, fecal impaction, rectal abscess
MDM/Problems Addressed:
78-year-old male returns for evaluation of continued rectal pain/pressure in the setting of recent constipation. He did pass a bowel movement but says he still has discomfort. Vital signs are normal. Exam as above. Placed an IV check labs
including a CBC and a CMP will send for CT of the abdomen pelvis with p.o. contrast. Monitor closely reassess after the above.
Labs reviewed: CBC shows stable anemia, CMP shows creatinine of 2.3 which is baseline. Awaiting results of CT.
CT of the abdomen pelvis shows no obstruction, significant rectal stool but no significant wall thickening or stranding to suggest recurrent colitis or proctitis. No abscess noted. No other acute pathology noted. Suspect likely symptoms are from
persistent constipation. Will treat with an enema and reassess.
Patient had massive bowel movement after enema. He is feeling much better has no rectal pressure or pain. Stable for discharge will have him follow-up with primary as an outpatient and continue taking MiraLAX daily. He feels very comfortable with
this. Spoke about return precautions all questions answered.
*Radiology
Radiology exam reviewed: radiology read reviewed
*Pulse Oximetry
Patient hypoxic: no
*Critical Care Note
Total Time (30-74mins, 75-104mins- exclusive of procedures): Not Applicable
Data Reviewed
Review of Other/Old Records Reveals: Labs, Records and Radiology Studies
Source: patient and records
ED Attending Note
-
Portions of this chart may have been created with voice recognition software.� Occasional wrong word or��sound alike� substitutions may have occurred due to the inherent limitations of voice recognition software.
Discharge Plan
Departure
Patient Disposition: Home (Routine Discharge)
Date of Disposition: 08/23/23
Time of Disposition: 22:46
Patient with high blood pressure during this ER visit?: No
Discharge Problem:
Constipation, Pain, rectal
Instructions: Constipation, Adult (DC)
Prescriptions:
No Action
atorvastatin 40 MG tablet
40 mg PO HS
metoprolol succinate [Toprol XL] 25 mg Tablet Extended Release 24 Hr
25 mg PO DAILY
tamsulosin [Flomax] 0.4 mg Capsule
0.4 mg PO HS
cholecalciferol (vitamin D3) [Vitamin D3] 25 mcg (1,000 unit) Tablet
25 mcg PO DAILY
ferrous sulfate [FeroSul] 325 mg (65 mg iron) Tablet
325 mg PO DAILY Qty: 30 0RF
metolazone 2.5 mg Tablet
2.5 mg PO TUTH
sennosides 8.6 mg Tablet
17.2 mg PO HS
bumetanide 2 mg tablet
2 mg PO BID
trazodone 50 mg Tablet
25 mg PO HS
polyethylene glycol 3350 [Miralax] 17 gram Powder In Packet
17 g PO DAILY PRN (Reason: constipation)
melatonin 3 mg Tablet
6 mg PO HS
lidocaine 5 % Adhesive Patch,Medicated
2 patch TOPICAL DAILY
docusate sodium 100 mg Capsule
100 mg PO DAILY
aspirin 81 mg Tablet,Chewable
81 mg PO DAILY
oxycodone 5 mg Tablet
5 mg PO MOTUWETHFR
Patient Comments:
08/09/2023: Clarified with correction 10mg Prior to therapy discontinued today, and new order for 5mg Prior to therapy to start today.
Rx Instructions:
Give 30 mins prior to therapy
potassium chloride 20 mEq Tablet Extended Release
20 meq PO BID
acetaminophen [Pain Relief ES (acetaminophen)] 500 mg tablet
1,000 mg PO Q8H PRN (Reason: mild pain)
Referrals:
Román Romero DO [Family Provider] - Call in 1-3 days for appt
Javi Ramírez MD [Active] - As needed (GI doctor)
Activity Restrictions/Additional Instructions:
Thank you for visiting the Emergency Department at [facility].
1. Please schedule a follow up appointment as directed. Call first thing tomorrow morning to make an appointment.
2. If indicated, please take your medications as instructed and indicated on discharge paperwork.
3. If any of your symptoms do not improve, or persist, or become more severe within 6-12 hours, please return to the emergency department for further care.
4. Please return to the emergency department if you develop a headache, neck pain/stiffness, fever greater than 100.4F, chest pain, shortness of breath, persistent nausea, vomiting, slurred speech, difficulty walking, numbness/tingling, weakness,
signs of infection or any other symptoms that are worrisome to you.
Please call [phone] if you have any questions.
Interventions
Interventions:
*Risk Screen - Suicide Last Done: 08/23/23 15:11
*General Assessment Last Done: 08/23/23 15:10
*Neglect/Abuse Screening Last Done: 08/23/23 15:10
*ED COVID-19 Vaccine History Last Done: 08/23/23 15:10
ED- Cardiac Assessment Last Done: 08/23/23 15:17
ED- Neurological Assessment Last Done: 08/23/23 15:17
ED- Pulmonary Assessment Last Done: 08/23/23 15:17
[2023-08-23 20:00] VITALS: BP 130/64
[2023-08-23 21:00] VITALS: BP 135/90
[2023-08-24] VITALS (7 sets, daily range): BP systolic 63–141; BP diastolic 38–68
== END 2023-08-24 13:47 | disposition home or self-care (01) ==
LOC: EMR 15:01
PROVIDERS: EMERGENCY PHYSICIAN Emergency Medicine; FAMILY PHYSICIAN Family Medicine
DX: K59.00 Constipation, unspecified (principal); K62.89 Other specified diseases of anus and rectum
CPT/HCPCS: 99284; 74176; 80053; 85025

== ENCOUNTER 2023-08-25 20:08 | Emergency (ER) | payer MEDICARE, OTHER, SELFPAY ==
[2023-08-25 20:13] VITALS: BP 124/78; BMI 34.2
--- NOTE | 2023-08-25 20:15 | EDRN ---
Patient came in soiled in dry stool, patient cleaned up with clean brief placed on patient
[2023-08-25 20:31] VITALS: BP 130/69
--- NOTE | 2023-08-25 21:00 | EDRN ---
Patient is sleeping at this time, will continue to monitor
[2023-08-25 22:00] VITALS: BP 140/60
--- NOTE | 2023-08-25 22:22 | ED.GENMED ---
History of Present Illness
<JOSE ROBERTO Cervantes - Last Filed: 08/25/23 23:56>
General
Chief Complaint: Abdominal Symptoms
Source: patient
Exam Limitations: none
Time Seen by Provider: 08/25/23 22:05
Nursing documentation reviewed up to this point in time: agreed with
Travel History
Have you had any contact with someone who has COVID-19?: No
Do you have any symptoms of coronavirus? Fever > 100 degrees, chills, cough, shortness of breath, sore throat, loss of taste or smell, muscle aches, or headache?: No
History of Present Illness
History of Present Illness:
This is a 78 year old male with a PMH of Afib, CHF, CKD stage 4, HTN, and aortic stenosis, presenting to the ED c/o diarrhea x 1 day. Pt states he was discharged from the hospital 2 days ago where he was treated for constipation with an enema. In
the hospital, patient had a significant bowel movement and his symptoms of constipation were resolved. He was instructed to take Miralax daily. Pt states the next day, he developed one episode of diarrhea, which resolved. Today, he states he has had
continuous brown, watery diarrhea. He is unsure of how many episodes he has had today. He has not taken any Miralax. Pt also states he has had shortness of breath since his episode of diarrhea today, but it has since gotten better. He denies any
fever, chills, CP, pain with taking deep breaths, abdominal pain, nausea, vomiting, dysuria, hematuria, or edema.
Pt does not drink alcohol, use drugs, or smoke cigarettes.
Past History
<JOSE ROBERTO Cervantes - Last Filed: 08/25/23 23:56>
Past History
ED Past Medical History: Arrthythmia (Atrial fib), CHF (ED 20%), GERD, HTN, Hypercholesterolemia, NIDDM (Patient states he is no longer diabetic and does not take any medication for this. Diet control), Other (Cardiomyopathy, Aortic stenosis, EF
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
ED Past Surgical History: Cardiac (AICD, TAVR, Watchman, EF 21%), Orthopedic (Total right knee replacement), Urological and Other (Cataracts)
Patient has exhibited threatening behavior?: No
Social History
Tobacco: Non-smoker
Alcohol: None
Drug: None
Personal:
Living: with family
Employment: Retired
Family History
Family History: Other
Review of Systems
<JOSE ROBERTO Cervantes - Last Filed: 08/25/23 23:56>
Review of Systems
Allergies reviewed?: Yes
All Other Systems: ROS reviewed and negative except as documented in HPI and ROS
Constitutional: Reports no symptoms; Denies fever or chills
EENT: Reports no symptoms
Respiratory: Reports other (shortness of breath)
Cardiac: Reports no symptoms; Denies chest pain
ABD/GI: Reports diarrhea; Denies abdominal pain, nausea or vomiting
: Reports no symptoms; Denies dysuria
Musculoskeletal: Reports no symptoms; Denies edema
Skin: Reports no symptoms
Neurological: Reports no symptoms
Psychiatric: Reports no symptoms
Phy Exam
<Regi Segovia [facility] - Last Filed: 08/25/23 23:56>
General Physical Exam
General Presentation: no apparent distress
General age: appears stated age
General Skin: warm and dry
General Habitus: normal
General Mental: alert
General Hydration: appears well hydrated
ENT Exam
ENT Exam: pharynx normal, neck supple, normocephalic and swallowing well
Cardiovascular Exam
Cardiovascular Exam: regular rate/rhythm, no edema, no murmur and normal peripheral pulses
Pulmonary Exam
Pulmonary Exam: lungs clear, no respiratory distress, no rales, no crackles, no rhonchi and no wheezing
Oxygen Status: oxygen 2 liters via NC
Gastrointestinal Exam
Gastrointestinal Exam: non tender, soft, non distended and abnormal bowel sounds (hyperactive)
Auscultation of Abdomen: hyperactive
Neurological Exam
Neurological Exam: alert and oriented x3
Musculoskeletal Exam
Musculoskeletal Exam: full ROM and no edema
Skin Exam
Skin Exam: normal color and warm/dry
Psychiatric Exam
Psychiatric Exam: normal mood/affect
Course
<JOSE ROBERTO Cervantes - Last Filed: 08/25/23 23:56>
Orders/Labs/Results
Orders:
Orders
08/25/23 23:00
BMP [Basic Metabolic Panel] Stat
Complete Blood Count/With Diff Urgent
08/25/23 23:48
0.9% Sodium Chloride 500 ml [Nss] 500 ml IV BOLUS
Abnormal Lab Results
08/25/23
23:00
WBC 4.6 L 10^3/uL
(4.8-10.8)
RBC 3.54 L 10^6/uL
(4.70-6.10)
Hgb 8.7 L g/dL
(13.0-18.0)
Hct 27.5 L %
(39.0-52.0)
MCV 77.7 L fL
(80.0-94.0)
MCH 24.6 L pg
(27.0-31.0)
MCHC 31.6 L g/dL
(33.0-37.0)
RDW 17.0 H %
(11.5-14.5)
Absolute Lymphs (auto) 0.8 L 10^3/uL
(1.2-3.4)
Immature Gran % 0.6 H %
(0-0.5)
Lymphocytes % 16.2 L %
(20.5-51.1)
Monocytes % 11.0 H %
(1.7-9.3)
Carbon Dioxide 38 H mmol/L
(22-30)
BUN 72 H mg/dl
(9-20)
Creatinine 2.4 H mg/dL
(0.7-1.3)
Glucose 106 H mg/dl
(70-99)
08/25/23 23:00
08/25/23 23:00
Vital Signs
Initial and Last Documented VS:
Initial Vital Signs
Temp Pulse Resp BP Pulse Ox
97.8 F 75 18 124/78 92
08/25/23 20:13 08/25/23 20:13 08/25/23 20:13 08/25/23 20:13 08/25/23 20:13
Last Documented Vital Signs
Temp Pulse Resp BP Pulse Ox
97.8 F 73 27 126/59 100
08/25/23 20:13 08/26/23 00:30 08/26/23 00:30 08/26/23 00:00 08/25/23 21:30
<Darrian Daniel, - Last Filed: 08/26/23 04:41>
Orders/Labs/Results
Orders:
Orders
08/25/23 23:00
BMP [Basic Metabolic Panel] Stat
Complete Blood Count/With Diff Urgent
08/25/23 23:48
0.9% Sodium Chloride 500 ml [Nss] 500 ml IV BOLUS
Abnormal Lab Results
08/25/23
23:00
WBC 4.6 L 10^3/uL
(4.8-10.8)
RBC 3.54 L 10^6/uL
(4.70-6.10)
Hgb 8.7 L g/dL
(13.0-18.0)
Hct 27.5 L %
(39.0-52.0)
MCV 77.7 L fL
(80.0-94.0)
MCH 24.6 L pg
(27.0-31.0)
MCHC 31.6 L g/dL
(33.0-37.0)
RDW 17.0 H %
(11.5-14.5)
Absolute Lymphs (auto) 0.8 L 10^3/uL
(1.2-3.4)
Immature Gran % 0.6 H %
(0-0.5)
Lymphocytes % 16.2 L %
(20.5-51.1)
Monocytes % 11.0 H %
(1.7-9.3)
Carbon Dioxide 38 H mmol/L
(22-30)
BUN 72 H mg/dl
(9-20)
Creatinine 2.4 H mg/dL
(0.7-1.3)
Glucose 106 H mg/dl
(70-99)
08/25/23 23:00
08/25/23 23:00
Vital Signs
Initial and Last Documented VS:
Initial Vital Signs
Temp Pulse Resp BP Pulse Ox
97.8 F 75 18 124/78 92
08/25/23 20:13 08/25/23 20:13 08/25/23 20:13 08/25/23 20:13 08/25/23 20:13
Last Documented Vital Signs
Temp Pulse Resp BP Pulse Ox
97.8 F 73 27 126/59 100
08/25/23 20:13 08/26/23 00:30 08/26/23 00:30 08/26/23 00:00 08/25/23 21:30
<Darrian Daniel DO - Last Filed: 08/26/23 04:41>
MDM/Problems Addressed
MDM/Problems Addressed:
Diarrhea, chronic renal failure, dehydration, chronic anemia
<Darrian Daniel DO - Last Filed: 08/26/23 04:41>
*Pulse Oximetry
Patient hypoxic: no
*Critical Care Note
Total Time (30-74mins, 75-104mins- exclusive of procedures): Not Applicable
Data Reviewed
Review of Other/Old Records Reveals: Labs (Prior labs reviewed revealing chronic kidney disease)
Source: patient
Further Testing Considered But Not Given:
Consider CT but abdomen benign
ED Attending Note
<JOSE ROBERTO Cervantes - Last Filed: 08/25/23 23:56>
-
Portions of this chart may have been created with voice recognition software.� Occasional wrong word or��sound alike� substitutions may have occurred due to the inherent limitations of voice recognition software.
<Darrian Daniel DO - Last Filed: 08/26/23 04:41>
ED Attending Note
Patient seen and examined by attending physician: Yes
I performed the substantive portion of visit, reviewed & personally made and approve the management plan that is documented in note by myself or JENNIFER.: Yes
ED Attending Note:
78-year-old male who presents with loose stools. On my evaluation patient reports feeling well and offers no current complaints. Labs nearing baseline. Perhaps mildly dehydrated and IV fluids given. Okay for discharge and outpatient follow-up.
Seen the student and agree with note above.
Discharge Plan
Departure
Patient Disposition: Home (Routine Discharge)
Date of Disposition: 08/25/23
Time of Disposition: 23:52
Patient with high blood pressure during this ER visit?: Yes
Condition: Good
Discharge Problem:
Diarrhea
Instructions: Diarrhea in adolescents and adults
Prescriptions:
No Action
atorvastatin 40 MG tablet
40 mg PO HS
metoprolol succinate [Toprol XL] 25 mg Tablet Extended Release 24 Hr
25 mg PO DAILY
tamsulosin [Flomax] 0.4 mg Capsule
0.4 mg PO HS
cholecalciferol (vitamin D3) [Vitamin D3] 25 mcg (1,000 unit) Tablet
25 mcg PO DAILY
ferrous sulfate [FeroSul] 325 mg (65 mg iron) Tablet
325 mg PO DAILY Qty: 30 0RF
metolazone 2.5 mg Tablet
2.5 mg PO TUTH
sennosides 8.6 mg Tablet
17.2 mg PO HS
bumetanide 2 mg tablet
2 mg PO BID
trazodone 50 mg Tablet
25 mg PO HS
polyethylene glycol 3350 [Miralax] 17 gram Powder In Packet
17 g PO DAILY PRN (Reason: constipation)
melatonin 3 mg Tablet
6 mg PO HS
lidocaine 5 % Adhesive Patch,Medicated
2 patch TOPICAL DAILY
docusate sodium 100 mg Capsule
100 mg PO DAILY
aspirin 81 mg Tablet,Chewable
81 mg PO DAILY
oxycodone 5 mg Tablet
5 mg PO MOTUWETHFR
Patient Comments:
08/09/2023: Clarified with custodial 10mg Prior to therapy discontinued today, and new order for 5mg Prior to therapy to start today.
Rx Instructions:
Give 30 mins prior to therapy
potassium chloride 20 mEq Tablet Extended Release
20 meq PO BID
acetaminophen [Pain Relief ES (acetaminophen)] 500 mg tablet
1,000 mg PO Q8H PRN (Reason: mild pain)
Referrals:
UNKNOWN - PT DOES,NOT KNOW [Family Provider] -
Activity Restrictions/Additional Instructions:
Maintain adequate hydration and begin eating small meals as tolerated. Follow up with your primary care doctor within the next week. If you develop any fever, chills, chest pain, shortness of breath, lightheadedness, dizziness, loss of
consciousness, intractable vomiting, blood in your stools, or severely worsening symptoms, return to the emergency room immediately.
Interventions
Interventions:
*Risk Screen - Suicide Last Done: 08/25/23 20:13
*General Assessment Last Done: 08/25/23 20:13
*Neglect/Abuse Screening Last Done: 08/25/23 20:13
ED- Fall Risk Assessment Last Done: 08/25/23 20:51
*ED COVID-19 Vaccine History Last Done: 08/25/23 20:13
[id number] Assessment Last Done: 08/25/23 20:51
[2023-08-25 23:00] VITALS: BP 124/79
[2023-08-25 23:06] LABS: % Basophils 0.2 % (0-2); % Eosinophils 1.3 % (0-6); % Immature Granulocytes 0.6 % (0-0.5); % Lymphocytes 16.2 % (20.5-51.1); % Neutrophils 70.7 % (42.2-75.2); Absolute Eosinophils 0.1 10^3/uL (0-0.7); Absolute Lymphocytes 0.8 10^3/uL (1.2-3.4); Absolute Monocytes 0.5 10^3/uL (0.1-0.6); Absolute Neutrophils 3.3 10^3/uL (1.4-6.5); Hematocrit 27.5 % (39.0-52.0); Hemoglobin 8.7 g/dL (13.0-18.0); Mean Corp Hgb Conc. 31.6 g/dL (33.0-37.0); Mean Corpuscular Hgb 24.6 pg (27.0-31.0); Mean Corpuscular Volume 77.7 fL (80.0-94.0); Mean Platelet Volume 8.9 fL (7.4-10.4); Nucleated Red Blood Cells % 0 % (-); Platelet Count 137 10^3/uL (130-400); Red Blood Cell Count 3.54 10^6/uL (4.70-6.10); White Blood Cell Count 4.6 10^3/uL (4.8-10.8)
[2023-08-25 23:20] LABS: Blood Urea Nitrogen 72 mg/dl (9-20); Carbon Dioxide 38 mmol/L (22-30); Chloride 100 mmol/L (98-107); Estimated Creatinine Clearance 31 ml/min; Glucose 106 mg/dl (70-99); Potassium 3.5 mmol/L (3.5-5.1); Sodium 138 mmol/L (135-145); eGFR 26.94
[2023-08-26] VITALS (8 sets, daily range): BP systolic 104–143; BP diastolic 47–82
[2023-08-26] MEDS: NSS 500 IV (00:18)
--- NOTE | 2023-08-26 00:39 | EDRN ---
Updated patient on plan to go home, he reports he has no ride and no one who can meet them at the house
--- NOTE | 2023-08-26 05:15 | EDRN ---
patient pulled up in bed and provided water
--- NOTE | 2023-08-26 07:08 | EDRN ---
the pts belongings were gathered and put together in a patient belongings bag per the pts request, RAC #20 PIV that was not documented was discontinued, catheter was in tact, pressure dressing applied
--- NOTE | 2023-08-26 07:10 | EDRN ---
the pt stated to this RN that his brother and sister in law were going to be at the house to help him once he was dropped off by transport
--- NOTE | 2023-08-26 07:19 | EDRN ---
this RN called the pts brother to make sure that he was at the pts house to help him when the pt got home, the pts brother and sister in law did not answer the phone but the pt stated to this RN that he called them earlier and he stated that his
family would be at the house by 7am, per EMS if the pts family was not there when the pt got to the house they would assist the pt into his recliner, charge nurse notified, the pt was sent home with belongings
== END 2023-08-26 07:54 | disposition home or self-care (01) ==
LOC: EMR 20:08
PROVIDERS: EMERGENCY PHYSICIAN Emergency Medicine
DX: R19.7 Diarrhea, unspecified (principal); R06.02 Shortness of breath; I13.0 Hypertensive heart and chronic kidney disease with heart failure and stage 1 through stage 4 chronic kidney disease, or unspecified chronic kidney disease; N18.4 Chronic kidney disease, stage 4 (severe); I50.9 Heart failure, unspecified
CPT/HCPCS: 99284; 96360; 80048; 85025

== ENCOUNTER 2023-09-05 18:04 | Inpatient (IN) | payer MEDICARE, OTHER, SELFPAY ==
[2023-09-05 14:25] VITALS: BP 101/44
[2023-09-05 14:40] LABS: % Basophils 0.3 % (0-2); % Immature Granulocytes 0.5 % (0-0.5); % Monocytes 13.4 % (1.7-9.3); % Neutrophils 65.8 % (42.2-75.2); Absolute Lymphocytes 0.7 10^3/uL (1.2-3.4); Absolute Monocytes 0.5 10^3/uL (0.1-0.6); Absolute Neutrophils 2.6 10^3/uL (1.4-6.5); Hematocrit 27.8 % (39.0-52.0); Hemoglobin 8.7 g/dL (13.0-18.0); Mean Corp Hgb Conc. 31.3 g/dL (33.0-37.0); Mean Corpuscular Hgb 24.4 pg (27.0-31.0); Mean Corpuscular Volume 78.1 fL (80.0-94.0); Mean Platelet Volume 9.6 fL (7.4-10.4); Nucleated Red Blood Cells % 0 % (-); Platelet Count 139 10^3/uL (130-400); Red Blood Cell Count 3.56 10^6/uL (4.70-6.10); White Blood Cell Count 3.9 10^3/uL (4.8-10.8)
[2023-09-05 14:52] LABS: COVID-19 Antigen Negative (Negative)
[2023-09-05 14:56] LABS: ALT (SGPT) 14 U/L (0-50); AST (SGOT) 23 U/L (17-59); Albumin 3.5 g/dl (3.5-5.0); Alkaline Phosphatase 86 U/L (38-126); Blood Urea Nitrogen 58 mg/dl (9-20); Calcium 9.1 mg/dl (8.4-10.2); Carbon Dioxide 33 mmol/L (22-30); Chloride 100 mmol/L (98-107); Glucose 157 mg/dl (70-99); Potassium 3.5 mmol/L (3.5-5.1); Sodium 139 mmol/L (135-145); Total Bilirubin 0.9 mg/dl (0.2-1.3); Total Protein 6.2 g/dl (6.3-8.2); eGFR 29.91
[2023-09-05 15:08] VITALS: BP 119/58
[2023-09-05 15:12] LABS: NT-proBNP 2400 pg/ml; Troponin I 0.041 ng/ml
--- NOTE | 2023-09-05 15:19 | ED.GENMED ---
History of Present Illness
General
Chief Complaint: Breathing Problem
Source: patient
Exam Limitations: none
Time Seen by Provider: 09/05/23 15:06
Travel History
Have you had any contact with someone who has COVID-19?: No
Do you have any symptoms of coronavirus? Fever > 100 degrees, chills, cough, shortness of breath, sore throat, loss of taste or smell, muscle aches, or headache?: No
History of Present Illness
History of Present Illness:
See MDM
Past History
Past History
ED Past Medical History: Arrthythmia (Atrial fib), CHF (ED 20%), GERD, HTN, Hypercholesterolemia, NIDDM (Patient states he is no longer diabetic and does not take any medication for this. Diet control), Other (Cardiomyopathy, Aortic stenosis, EF
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
ED Past Surgical History: Cardiac (AICD, TAVR, Watchman, EF 21%), Orthopedic (Total right knee replacement), Urological and Other (Cataracts)
Patient has exhibited threatening behavior?: No
Social History
Tobacco: Non-smoker
Alcohol: None
Drug: None
Personal:
Living: with family
Employment: Retired
Family History
Family History: Other
Phy Exam
Physical Exam
Physical Exam:
See MDM
Scores
Heart Failure Risk
Heart Failure Risk Score: Yes
History of Stroke or TIA: No
History of intubation for respiratory distress: No
Heart rate on ED arrival >/= 110: No
SaO2 <90% on arrival on room air: Yes
HR >/=110 during 3min walk test (or too ill to perform test): Yes
ECG has acute ischemic changes: No
Urea >/=12mmol/L (BUN 33.6mg/dL): Yes
Serum CO2>/=35mmol/L: No
Troponin I or T elevated to NM Level (0.4mg/dL): No
NT-proBNP >/=5,000ng/L (5,000pg/ml): No
HF Risk Score: 4
Admission Status: HIGH RISK 26.1% Consider SNF treatment or admission to hospital
Course
Orders/Labs/Results
Orders:
Orders
09/05/23 14:26
Electrocardiogram (*1) Urgent
Reason for Study: Shortness of Breath
EKG- Treatment ONCE
09/05/23 14:27
BNP [NT-proBNP] Urgent
Complete Blood Count/With Diff Urgent
Comprehensive Metabolic Panel Urgent
Troponin I Urgent
09/05/23 14:30
COVID-19 Antigen Urgent
Source: Nasal Swab
Influenza A+B Rapid Molecular Urgent
[facility] Source: Nasal Swab
Specimen Description:
09/05/23 15:18
CR Chest - 2 Views Urgent
Comment:
Reason For Exam: SOB
09/05/23 16:37
Bumetanide [Bumex] 2 mg IV NOW STA
Abnormal Lab Results
09/05/23
14:27
WBC 3.9 L 10^3/uL
(4.8-10.8)
RBC 3.56 L 10^6/uL
(4.70-6.10)
Hgb 8.7 L g/dL
(13.0-18.0)
Hct 27.8 L %
(39.0-52.0)
MCV 78.1 L fL
(80.0-94.0)
MCH 24.4 L pg
(27.0-31.0)
MCHC 31.3 L g/dL
(33.0-37.0)
RDW 16.0 H %
(11.5-14.5)
Absolute Lymphs (auto) 0.7 L 10^3/uL
(1.2-3.4)
Lymphocytes % 19.0 L %
(20.5-51.1)
Monocytes % 13.4 H %
(1.7-9.3)
Carbon Dioxide 33 H mmol/L
(22-30)
BUN 58 H mg/dl
(9-20)
Creatinine 2.2 H mg/dL
(0.7-1.3)
Glucose 157 H mg/dl
(70-99)
Troponin I 0.041 H* ng/ml
Total Protein 6.2 L g/dl
(6.3-8.2)
09/05/23 14:27
09/05/23 14:27
Vital Signs
Initial and Last Documented VS:
Initial Vital Signs
Temp Pulse Resp BP Pulse Ox
98.0 F 72 20 101/44 99
09/05/23 14:25 09/05/23 14:25 09/05/23 14:25 09/05/23 14:25 09/05/23 14:25
Last Documented Vital Signs
Temp Pulse Resp BP Pulse Ox
98.0 F 70 20 119/58 99
09/05/23 14:25 09/05/23 15:15 09/05/23 15:15 09/05/23 15:08 09/05/23 15:15
MDM/Problems Addressed
Differential Diagnosis Includes:
HPI and MDM Narrative:
78-year-old male presenting with shortness of breath since 5 AM. Patient states this occurred soon after taking his medicines. He denies cough. There is no fever or sick contacts noted. Patient on 2 L oxygen chronically
On exam, he appears chronically unwell. He does have mild pitting edema to his lower extremities. I cannot appreciate wheezing or crackles but patient does have poor air exchange
Patient found to have an elevated troponin and BNP but this appears to be chronic. Will obtain chest x-ray given his symptoms
Physical exam
General: Weak and fatigued.
HEENT: protecting airway
Neck: appears supple
CV: No evidence of cyanosis
Resp: No accessory muscle use. Poor air exchange. Lungs appear clear
Abd: Non-distended
Extremities: No pitting edema bilateral lower extremities
Neuro: alert
Psych: Normal affect
Skin: Intact
Problems Addressed including Acute and Chronic Conditions affecting care:
1. Shortness of breath
Acuity: acute
Prognosis: stable
Details: Will obtain chest x-ray to rule out pneumonia versus CHF
Updates
Chest x-ray concerning for CHF exacerbation. Patient given IV Bumex. Radiology reference possible right lower lobe pneumonia but patient is afebrile with a normal white blood cell count. Antibiotics deferred and will admit
Differential Diagnosis (but not limited to):
Testing considered:
Drug therapy (if applicable): OTC meds, please see d/c instruction regarding Rx drugs
Amount and/or Complexity of Data Reviewed
Clinical info obtained from: Patient
External data reviewed: N/A
Labs I independently reviewed (but not limited to): Elevated troponin and BNP
Radiology: X-ray independently reviewed: Chest x-ray with evidence of CHF exacerbation.
Pulse Ox: not hypoxic
EKG independently reviewed: Paced rhythm, wide QRS, no STEMI
Unstacker: Paced rhythm
Critical Care: the high probability of a clinically significant, sudden or life threatening deterioration of the cardiopulmonary system(s) required my full and direct attention, intervention and personal management. The aggregate critical care
time was 31 minutes. This time is in addition to time spent performing reported procedures but includes the following:
[x] Data Review and interpretation
[x] Patient assessment and monitoring of vital signs
[x] Documentation
[x] Medication orders and management
Risk of Complication:
Social Determinants of health: Good social support
Discussed with other providers: hospitalist
Escalation of Care includes Admit/Obs: Given the CHF exacerbation, will admit
Occasional wrong word or 'sound a like' substitutions may have occurred due to the inherent limitations of voice recognition software. Read the chart carefully and recognize, using context, where substitutions have occurred.
*Critical Care Note
Total Time (30-74mins, 75-104mins- exclusive of procedures): 31 min
ED Attending Note
-
Portions of this chart may have been created with voice recognition software.� Occasional wrong word or��sound alike� substitutions may have occurred due to the inherent limitations of voice recognition software.
Discharge Plan
Departure
Patient Disposition: Admit
Date of Disposition: 09/05/23
Time of Disposition: 16:41
Admit to: Telemetry
Presentation/result/management discussed w/ accepting MD/DO: Hospitalist
Discharge Problem:
Acute exacerbation of CHF (congestive heart failure)
Prescriptions:
No Action
atorvastatin 40 MG tablet
40 mg PO HS
metoprolol succinate [Toprol XL] 25 mg Tablet Extended Release 24 Hr
25 mg PO DAILY
tamsulosin [Flomax] 0.4 mg Capsule
0.4 mg PO HS
cholecalciferol (vitamin D3) [Vitamin D3] 25 mcg (1,000 unit) Tablet
25 mcg PO DAILY
metolazone 2.5 mg Tablet
2.5 mg PO TUTH
sennosides 8.6 mg Tablet
17.2 mg PO HS
bumetanide 2 mg tablet
2 mg PO BID
trazodone 50 mg Tablet
25 mg PO HS
polyethylene glycol 3350 [Miralax] 17 gram Powder In Packet
17 g PO DAILY PRN (Reason: constipation)
melatonin 3 mg Tablet
6 mg PO HS
docusate sodium 100 mg Capsule
100 mg PO DAILY
aspirin 81 mg Tablet,Chewable
81 mg PO DAILY
potassium chloride 20 mEq Tablet Extended Release
20 meq PO BID
acetaminophen [Pain Relief ES (acetaminophen)] 500 mg tablet
1,000 mg PO Q8HPRN PRN (Reason: mild pain)
ferrous sulfate [FeroSul] 325 mg (65 mg iron) tablet
325 mg PO DAILY
Referrals:
Román Romero DO [Family Provider] -
Interventions
Interventions:
*Risk Screen - Suicide Last Done: 09/05/23 14:25
*General Assessment Last Done: 09/05/23 14:25
*Neglect/Abuse Screening Last Done: 09/05/23 14:25
*ED COVID-19 Vaccine History Last Done: 09/05/23 14:25
ED- Cardiac Assessment Last Done: 09/05/23 14:33
ED- Pulmonary Assessment Last Done: 09/05/23 14:33
[2023-09-05 16:37] VITALS: BP 130/60
[2023-09-05 17:01] VITALS: BP 130/55
[2023-09-05] MEDS: BUMEX 2 MG IV (17:16)
--- NOTE | 2023-09-05 17:23 | HPS.HSE ---
Family Physician
-
Family Physician: Román Romero
Chief Complaint
-
shortness of breath
History of Present Illness
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
movement or exertion. Denies any cough or fevers or chills. Denies any chest pain.
He denies any swelling that is worse than usual. He denies any weight gain in the past few weeks although he has lost 50 pounds in the span of several months of the year.
He quit alcohol 5 years ago. Denies smoking.
Medical History
Past Medical History
Past Medical History: Reports Other (HFrEF status post ICD, permanent atrial fibrillation status post Watchman, aortic stenosis status post TAVR, strep bovis bacteremia/endocarditis, history of Staph epidermidis bacteremia due to infected pacemaker
lead status post extraction and replacement, CKD 4, hyperlipidemia, chronic pain with na)
Past Surgical History: Reports Other ( Cardiac (AICD, TAVR, Watchman, EF 21%), Orthopedic (Total right knee replacement), Urological and Other (Cataracts))
Social History
Tobacco: Non-smoker
Alcohol: None
Drug: None
Family History
Family History: Not pertinent
Allergies / Home Medications
Allergies reflects when Allergies were last updated in [facility].
Home Medications with original date entered in [facility]
Allergy/Medication List:
Allergies
Allergy/AdvReac Type Severity Reaction Status Date / Time
No Known Allergies Allergy Verified 08/25/23 20:33
Home Medications
atorvastatin 40 mg tablet 40 mg PO HS High cholesterol 09/29/22
cholecalciferol (vitamin D3) 25 mcg (1,000 unit) tablet (Vitamin D3) 25 mcg PO DAILY Supplement 12/14/22
metoprolol succinate 25 mg tablet,extended release 24 hr (Toprol XL) 25 mg PO DAILY Blood Pressure 12/14/22
tamsulosin 0.4 mg capsule (Flomax) 0.4 mg PO HS Urinary Issue 12/14/22
acetaminophen 500 mg tablet (Pain Relief Extra Strength (acetaminophen)) 1,000 mg PO Q8HPRN PRN mild pain 08/09/23
aspirin 81 mg chewable tablet 81 mg PO DAILY Blood Clot Prevention/Tx 08/09/23
bumetanide 2 mg tablet 2 mg PO BID Fluid Retention/Swelling 08/09/23
docusate sodium 100 mg capsule 100 mg PO DAILY Constipation 08/09/23
melatonin 3 mg tablet 6 mg PO HS Sleep 08/09/23
metolazone 2.5 mg tablet 2.5 mg PO TUTH Blood Pressure 08/09/23
polyethylene glycol 3350 17 gram oral powder packet (Miralax) 17 g PO DAILY PRN constipation 08/09/23
potassium chloride 20 mEq tablet,extended release 20 meq PO BID Electrolyte Repletion 08/09/23
sennosides 8.6 mg tablet 17.2 mg PO HS Constipation 08/09/23
trazodone 50 mg tablet 25 mg PO HS Sleep 08/09/23
ferrous sulfate 325 mg (65 mg iron) tablet (FeroSul) 325 mg PO DAILY Supplement 09/05/23
Review of Systems
-
History Source: Patient
A 12 point ROS was completed and negative except as noted: Yes
Constitutional: Reports No Symptoms
EENT: Reports No Symptoms
Respiratory: Reports See HPI
Cardiac: Reports See HPI
Abdomen/GI: Reports No Symptoms
: Reports No Symptoms
Musculoskeletal: Reports No Symptoms
Skin: Reports No Symptoms
Neurological: Reports No Symptoms
Endocrine: Reports No Symptoms
Hematologic/Lymphatic: Reports No Symptoms
Psych: Reports No Symptoms
Physical Exam
Vital Signs
Vital Signs
Temp Pulse Resp BP Pulse Ox
98.0 F 72 17 130/60 100
09/05/23 14:25 09/05/23 16:45 09/05/23 15:30 09/05/23 16:37 09/05/23 16:45
Physical Exam
General: Well Developed, Well Nourished and No Apparent Distress
HEENT: NormoCephalic, Moist mucous membranes and Atraumatic
Respiratory: Clear
Cardiac: S1/S2 and Regular Rhythm; No Murmur or Rub
GI: Soft, Non Tender, Non Distended and Normal Bowel Sounds; No Organomegaly
Rectal: Deferred by Provider
Musculoskeletal: No Clubbing, No Cyanosis and No Edema
Skin: No Rash
Neuro: Nonfocal/grossly intact
Laboratory Results
-
09/05/23 14:27
09/05/23 14:27
Laboratory Results
Total Bilirubin 0.9 mg/dl (0.2-1.3) 09/05/23 14:27
AST 23 U/L (17-59) 09/05/23 14:27
ALT 14 U/L (0-50) 09/05/23 14:27
Alkaline Phosphatase 86 U/L (38-126) 09/05/23 14:27
Troponin I 0.041 ng/ml H* 09/05/23 14:27
Data Reviewed
-
Lab Data: Labs Reviewed by me
Old Records: Reviewed
Impression/Plan
-
IMPRESSION:
PLAN:
# Acute on chronic HFrEF exacerbation status post ICD
-Check I's and O's, daily weights
-Chest x-ray shows possible right lower lobe pneumonia which is stable, cardiomegaly which is stable,
-Clinically no evidence of pneumonia
-Cardiac BNP 2400 from 4000 earlier this month
-2 mg Bumex given, increased to 3 mg twice daily
-Continue metolazone
-Recent echo shows EF of 30 to 35%
-Cardiology consulted
# Chronic non-SC troponin elevation in the setting of CKD
-No chest pain
Permanent atrial fibrillation status post Watchman
-Not on anticoagulation
-Continue aspirin
-Continue metoprolol
Aortic stenosis status post TAVR
History of strep bovis bacteremia/endocarditis
History of Staph epidermidis bacteremia secondary to infected pacemaker lead extraction and replacement at [facility]
CKD stage IV
-Renal function stable
Hyperlipidemia
-Continue statin
Chronic pain with narcotic dependence
BPH
-Continue tamsulosin
Obesity
Chronic anemia secondary to renal disease
-Hemoglobin stable at 8.7
-Continue iron supplement
Pancreatic mass lesion on CT scan
Insomnia
-Continue Trelegy
Full code
DVT prophylaxis�heparin
Cardiac diet
[2023-09-05 18:00] VITALS: BP 149/76
[2023-09-05 20:29] VITALS: BP 141/68; BMI 34.7
[2023-09-05] MEDS: HEPARIN 5000 UNITS SC (20:44)
[2023-09-05] MEDS: SENOKOT 17.1999999999999993 MG PO (20:45)
[2023-09-05] MEDS: KCL 20 MEQ PO (20:45)
[2023-09-05] MEDS: FLOMAX 0.400000000000000022 MG PO (20:45)
[2023-09-05] MEDS: MELATONIN 6 MG PO (20:46)
[2023-09-05] MEDS: LIPITOR 40 MG PO (20:46)
[2023-09-05] MEDS: DESYREL PO (20:52)
--- NOTE | 2023-09-05 23:44 | PTCARENOTE ---
Pt arrived onto floor at 2028. AAOx3 in stable condition; was a trap puller to the bed. Pt oriented to room and call leon, will continue to monitor.
[2023-09-06 03:00] VITALS: BP 153/86
[2023-09-06 05:18] VITALS: BMI 34.4
[2023-09-06 07:00] VITALS: BP 135/73
[2023-09-06] MEDS: HEPARIN 5000 UNITS SC ×2 (08:13→19:42)
[2023-09-06] MEDS: KCL 20 MEQ PO ×2 (08:13→19:41)
[2023-09-06] MEDS: LOW STRENGTH ASPIRIN 81 MG PO (08:14)
[2023-09-06] MEDS: TOPROL XL 25 MG PO (08:14)
[2023-09-06] MEDS: BUMEX 3 MG IV ×2 (08:14→16:20)
[2023-09-06] MEDS: VITAMIN D3 (cholecalciferol) 25 MCG PO (08:14)
[2023-09-06] MEDS: FEOSOL 325 MG PO (08:14)
[2023-09-06] MEDS: COLACE 100 MG PO (08:14)
[2023-09-06] MEDS: ZAROXOLYN 2.5 MG PO (08:39)
[2023-09-06 08:52] LABS: % Basophils 0.4 % (0-2); % Eosinophils 2.3 % (0-6); % Immature Granulocytes 0.4 % (0-0.5); % Lymphocytes 33.6 % (20.5-51.1); % Monocytes 14.5 % (1.7-9.3); % Neutrophils 48.8 % (42.2-75.2); Absolute Eosinophils 0.1 10^3/uL (0-0.7); Absolute Lymphocytes 0.9 10^3/uL (1.2-3.4); Absolute Monocytes 0.4 10^3/uL (0.1-0.6); Absolute Neutrophils 1.3 10^3/uL (1.4-6.5); Hematocrit 28.7 % (39.0-52.0); Hemoglobin 8.8 g/dL (13.0-18.0); Mean Corp Hgb Conc. 30.7 g/dL (33.0-37.0); Mean Corpuscular Hgb 24.3 pg (27.0-31.0); Mean Corpuscular Volume 79.3 fL (80.0-94.0); Mean Platelet Volume 10.2 fL (7.4-10.4); Nucleated Red Blood Cells % 0 % (-); Platelet Count 141 10^3/uL (130-400); Red Blood Cell Count 3.62 10^6/uL (4.70-6.10); Red Cell Dist. Width 15.9 % (11.5-14.5); White Blood Cell Count 2.6 10^3/uL (4.8-10.8)
[2023-09-06 09:25] LABS: ALT (SGPT) 12 U/L (0-50); AST (SGOT) 22 U/L (17-59); Albumin 3.4 g/dl (3.5-5.0); Alkaline Phosphatase 82 U/L (38-126); Blood Urea Nitrogen 56 mg/dl (9-20); Calcium 9.3 mg/dl (8.4-10.2); Carbon Dioxide 36 mmol/L (22-30); Chloride 99 mmol/L (98-107); Estimated Creatinine Clearance 33 ml/min; Glucose 85 mg/dl (70-99); Potassium 3.7 mmol/L (3.5-5.1); Sodium 139 mmol/L (135-145); Total Protein 6.2 g/dl (6.3-8.2); eGFR 28.35
--- NOTE | 2023-09-06 10:14 | CM ---
Patient seen bedside.
IA completed.
Patient lives with spouse in 1 story home with 1 step to enter.
Patient independent prior to admission.
Ambulates with a cane.
patient has not had VN, or skilled rehab in the past.
patient denies home care needs at this time.
PCP: Dr Forde
Pharamcy: Nini Hernandez
Plan: home no needs anticipated.
[2023-09-06 10:16] LABS: Procalcitonin < 0.05 ng/ml (0.0-0.25)
--- NOTE | 2023-09-06 10:21 | CM ---
Addendum entered by Mercedes Wesley 09/06/23 13:54:
Oliva HERNDON
fax#[phone]
Original Note:
Patient seen beside.
IA completed.
Patient lives with spouse, brother and sister in law in a 2 story home.
Patient has a first floor set up.
Patient has WC, walker, and cane.
Patient drives.
Patient has chronic oxygen.
Patient current with Oliva HERNDON.
PCP: Dr Romero
Pharmacy: [facility] in [facility] for meds needed morales.
Plan: home with Oliva when stable.
[2023-09-06 11:22] LABS: Glucose - Point of Care 173 mg/dl (70-99)
[2023-09-06 11:26] VITALS: BP 117/55
--- NOTE | 2023-09-06 13:18 | W.PN.HOSP.TC ---
Today's Communication/Plan
-
All discussed with the patient and the nurse
Assessment / Plan
Assessment / Plan
Physical exam:
General: Awake, alert and oriented x3, not in distress and holds appropriate conversation.
HEENT: No active discharge, ecchymosis or bruising, moist lips, tongue and mucous membrane.
Eyes: No discharge or red conjunctiva, no nystagmus, pupils are reactive and equal
Neck:Supple, no JVD no bruit no goiter.
Respiratory: Normal AP contour and diameter, normal chest wall movement, normal respiratory effort, no respiratory distress,
Lungs: Good air entry bilaterally, no wheezing or rhonchi, no rales or crackles
Heart: S1, S2 regular, normal rate, no added sound.
Gastrointestinal: Positive bowel sounds, soft, nontender, no guarding or rigidity or organomegaly
Musculoskeletal: , no chest wall abnormality or tenderness. All joints and extremities have good range of motion, no muscle tenderness or any joint swelling or tenderness.
Extremities: No pitting edema, good peripheral pulses, good range of motion
Skin: Warm and dry, no ulceration, normal color.
Neurological: Awake, alert and oriented x3, cranial nerve II-XII grossly intact, speech clear and comprehensive, good muscle tone, normal sensory and motor function
Psychiatric: Normal mood, normal thought and judgment, normal affect,
Assessment and plan:
PLAN:
# Acute on chronic HFrEF exacerbation status post ICD, overall feels some improvement
-Check I's and O's, daily weights
-Chest x-ray shows possible right lower lobe pneumonia which is stable, cardiomegaly which is stable,
-Clinically no evidence of pneumonia
-Not urinating much in the morning.
-Discussed with the nurse and will do bladder scan
-Continue 3 mg twice daily
-Continue metolazone
-Recent echo shows EF of 30 to 35%
-Fluid restriction
-Patient met compliant with the fluid restriction and medication intake.
-Cardiology consulted
# Chronic non-OH troponin elevation in the setting of CKD
-No chest pain
Permanent atrial fibrillation status post Watchman
-Not on anticoagulation
-Continue aspirin
-Continue metoprolol
Aortic stenosis status post TAVR
History of strep bovis bacteremia/endocarditis
History of Staph epidermidis bacteremia secondary to infected pacemaker lead extraction and replacement at [facility]
CKD stage IV
-Renal function stable
Hyperlipidemia
-Continue statin
Chronic pain with narcotic dependence
BPH
-Continue tamsulosin
Obesity
Chronic anemia secondary to renal disease
-Hemoglobin stable at 8.7
-Continue iron supplement
Pancreatic mass lesion on CT scan
Insomnia
-Continue Trelegy
Full code
DVT prophylaxis�heparin
Cardiac diet
Anticipated Discharge: 24 - 48 hours
Subjective/Interval History
-
Date of Service: September 06, 2023
Seen and examined, awake and alert, denies any fever or chill, laying in bed overall feels better but not urinating much despite getting Bumex 3 mg IV twice daily.
Denies abdominal pain or suprapubic discomfort,
Objective Data
-
Labs:
Laboratory Results
09/06/23
08:03
WBC 2.6 L
Hgb 8.8 L
Hct 28.7 L
Plt Count 141
Sodium 139
Potassium 3.7
Chloride 99
Carbon Dioxide 36 H
BUN 56 H
Creatinine 2.3 H
Glucose 85
Calcium 9.3
Total Bilirubin 1.0
AST 22
ALT 12
Alkaline Phosphatase 82
Vital Signs:
Vital Signs
Temp Pulse Resp BP Pulse Ox
97.5 F 73 17 117/55 100
09/06/23 11:26 09/06/23 11:26 09/06/23 11:26 09/06/23 11:26 09/06/23 11:26
I&O
09/05/23 09/06/23 09/07/23
07:59 07:59 07:59
Intake Total 120 / 120
Output Total 300 / 300
Balance -180 / -180
Review of Systems
-
All other systems: Reviewed and negative
[2023-09-06 15:53] VITALS: BP 129/61
[2023-09-06 16:26] LABS: Glucose - Point of Care 165 mg/dl (70-99)
[2023-09-06 19:00] VITALS: BP 123/57
[2023-09-06 21:20] LABS: Glucose - Point of Care 140 mg/dl (70-99)
[2023-09-06] MEDS: SENOKOT 17.1999999999999993 MG PO (21:22)
[2023-09-06] MEDS: LIPITOR 40 MG PO (21:23)
[2023-09-06] MEDS: FLOMAX 0.400000000000000022 MG PO (21:23)
[2023-09-06] MEDS: MELATONIN 6 MG PO (21:23)
[2023-09-06] MEDS: DESYREL PO (21:25)
[2023-09-06 22:30] VITALS: BP 129/60
[2023-09-07] VITALS (8 sets, daily range): BP systolic 113–176; BP diastolic 56–71; PULSE 72; BMI 34.2
[2023-09-07] MEDS: TYLENOL 1000 MG PO ×2 (03:26→21:10)
[2023-09-07 07:24] LABS: Glucose - Point of Care 108 mg/dl (70-99)
[2023-09-07 08:50] LABS: Blood Urea Nitrogen 60 mg/dl (9-20); Calcium 9.6 mg/dl (8.4-10.2); Carbon Dioxide 38 mmol/L (22-30); Chloride 96 mmol/L (98-107); Estimated Creatinine Clearance 34 ml/min; Glucose 92 mg/dl (70-99); Potassium 3.7 mmol/L (3.5-5.1); Sodium 138 mmol/L (135-145); eGFR 29.91
[2023-09-07] MEDS: TOPROL XL 25 MG PO (09:48)
[2023-09-07] MEDS: FEOSOL 325 MG PO (09:48)
[2023-09-07] MEDS: LOW STRENGTH ASPIRIN 81 MG PO (09:48)
[2023-09-07] MEDS: COLACE 100 MG PO (09:48)
[2023-09-07] MEDS: HEPARIN 5000 UNITS SC ×2 (09:49→21:02)
[2023-09-07] MEDS: KCL 20 MEQ PO ×2 (09:49→21:04)
[2023-09-07] MEDS: VITAMIN D3 (cholecalciferol) 25 MCG PO (09:49)
[2023-09-07] MEDS: BUMEX 3 MG IV ×2 (09:53→16:14)
--- NOTE | 2023-09-07 10:22 | CON.CAR ---
Addendum entered and electronically signed by Tato Perez MD 09/07/23 12:32:
I saw and examined the patient.
The [employer]'s note was reviewed and I agree with the note.
Comment: 78-year-old male with CAD, non-ischemic cardiomyopathy EF 30-35%, HFrEF, permanent atrial fibrillation (Watchman device on aspirin), aortic stenosis s/p TAVR, ICD with lead extraction 08/28/2022, dyslipidemia, chronic anemia and CKD3b, who
presented to the ER with complaints of shortness of breath x 2 days. He has been diuresed and appears to be approaching about his dry weight. He complains today of worsening cough and on exam he does not seem to have too much edema.
- IV diuresis for maybe one more day
- new leukopenia abx for possible PNA?
Original Note:
Consultation
Consultation Request
Date/Time Consultation Requested: 09/07/23 8:45a
Date/Time Consultation Performed: 09/07/23 10a
Requesting Provider: Dr. Bateman
Performing Provider: MIKALA Maki for Dr. Perez
Reason for Consultation: acute HFrEF
Medical History
-
Chief Complaint: sob
History of Present Illness:
Mr. Welsh is a 78-year-old male with CAD, non-ischemic cardiomyopathy EF 30-35%, HFrEF, permanent atrial fibrillation (Watchman device on aspirin), aortic stenosis s/p TAVR, ICD with lead extraction 08/28/2022, dyslipidemia, chronic anemia and
CKD3b, who presented to the ER with complaints of shortness of breath x 2 days. His weight was around 240 lbs at home, he thinks, and reports compliance with Bumex and Metolazone. He is admitted to the hospitalist service and we are consulted for
acute on chronic HFrEF. CXR shows possible RLL PNA and he has new leukopenia with pancytopenia. He admits to coughing a lot this am, bringing up phlegm.
Past Medical History
Past Medical History: Other (as above)
Past Surgical History: Cardiac (ICD)
Social History
Tobacco: Former Smoker
Alcohol: None
Personal:
Living: With Family
Family History
Family History: Reviewed & Not Pertinent
Allergies / Home Medications
Allergy/AdvReac Type Severity Reaction Status Date / Time
No Known Allergies Allergy Verified 08/25/23 20:33
Medication Instructions Recorded Confirmed Type
atorvastatin 40 mg tablet 40 mg PO HS High cholesterol 09/29/22 09/05/23 History
cholecalciferol (vitamin D3) 25 25 mcg PO DAILY Supplement 12/14/22 09/05/23 History
mcg (1,000 unit) tablet (Vitamin
D3)
metoprolol succinate 25 mg 25 mg PO DAILY Blood Pressure 12/14/22 09/05/23 History
tablet,extended release 24 hr
(Toprol XL)
tamsulosin 0.4 mg capsule (Flomax) 0.4 mg PO HS Urinary Issue 12/14/22 09/05/23 History
acetaminophen 500 mg tablet (Pain 1,000 mg PO Q8HPRN PRN mild pain 08/09/23 09/05/23 History
Relief Extra Strength
(acetaminophen))
aspirin 81 mg chewable tablet 81 mg PO DAILY Blood Clot 08/09/23 09/05/23 History
Prevention/Tx
bumetanide 2 mg tablet 2 mg PO BID Fluid 08/09/23 09/05/23 History
Retention/Swelling
docusate sodium 100 mg capsule 100 mg PO DAILY Constipation 08/09/23 09/05/23 History
melatonin 3 mg tablet 6 mg PO HS Sleep 08/09/23 09/05/23 History
metolazone 2.5 mg tablet 2.5 mg PO TUTH Blood Pressure 08/09/23 09/05/23 History
polyethylene glycol 3350 17 gram 17 g PO DAILY PRN constipation 08/09/23 09/05/23 History
oral powder packet (Miralax)
potassium chloride 20 mEq 20 meq PO BID Electrolyte Repletion 08/09/23 09/05/23 History
tablet,extended release
sennosides 8.6 mg tablet 17.2 mg PO HS Constipation 08/09/23 09/05/23 History
trazodone 50 mg tablet 25 mg PO HS Sleep 08/09/23 09/05/23 History
ferrous sulfate 325 mg (65 mg 325 mg PO DAILY Supplement 09/05/23 09/05/23 History
iron) tablet (FeroSul)
Review of Systems
-
History Source: Patient
All other systems: Negative unless noted
Physical Exam
Vital Signs
Temp Pulse Resp BP Pulse Ox
97.3 F 73 24 129/71 100
09/07/23 07:23 09/07/23 07:23 09/07/23 07:23 09/07/23 07:23 09/07/23 07:23
Lab Results
09/06/23 08:03
09/07/23 07:44
Troponin I 0.041 ng/ml H* 09/05/23 14:27
Cqn-[id number] Pept 2400 pg/ml 09/05/23 14:27
Physical Exam
General: Well Developed and No Apparent Distress
HEENT: Normocephalic, Anicteric and Moist Mucous Membranes
Respiratory: Non Labored Respirations and Other (diminished RLL)
Cardiac: S1/S2, Regular Rhythm, Peripheral Edema (mild b/l LE) and Other (right ICD site healed)
Breast: Deferred by me
GI: Soft, Non Distended and Normal Bowel Sounds
Rectal: Deferred by Provider
Musculoskeletal: No Clubbing and No Cyanosis
Skin: Warm and Dry
Neuro: AO x 3
Hematologic/Lymphatic: No Lymphadenopathy
Psych: Calm
Impression / Plan
-
HFrEF - acute on chronic.
- agree with continued IV diuresis.
- monitor daily weights, I&Os.
- weight is down since admit, likely switch to PO diuretics tomorrow and monitor.
- echo 08/10/23 as below.
- continue GDMT which is limited by CKD3b.
New leukopenia - CXR with possible RLL PNA.
- consider treatment of PNA.
- also with productive cough.
Afib - permanent.
- AV paced on tele.
- stable, rate controlled.
- no OAC, he is s/p Watchman 04/11/22, on ASA.
s/p TAVR - stable on echo.
ICD - stable with normal function.
- followed in our outpatient device clinic.
CKD - stage 3b.
- stable.
- monitor with diuresis.
Anemia - chronic.
- per hospitalist.
Echo 08/10/23: Left ventricle is dilated. LVEF 30-35%, global hypokinesis, enlarged RV size with normal RV function, ICD wire seen in right ventricle. Severely dilated left and right atrium. Mild to moderate MR, well-seated TAVR with peak/mean
gradients of 25/12 mmHg. Mild paravalvular AR. Moderate to severe TR, Estimated PASP of 55-60 mmHg, the IVC is dilated and does not collapse.�No significant change since the prior study of 08/22/2022.
Data Reviewed
-
Radiology: Report Reviewed by me (cxr: Possible right lower lobe pneumonia)
Medical Tests (Nuc Med, Echo etc): Report Reviewed by me (echo 08/10/23: Left ventricle is dilated. LVEF 30-35%, global hypokinesis, Severely dilated left and right atrium. Mild to moderate MR, well-seated TAVR with peak/mean gradients of 25/12 mmHg.
Mild paravalvular AR, Moderate to severe TR, Estimated PASP of 55-60 mmHg)
Labs: Labs Reviewed by me
Old Records: Reviewed
[2023-09-07 12:03] LABS: Glucose - Point of Care 197 mg/dl (70-99)
--- NOTE | 2023-09-07 13:19 | CM ---
Addendum entered by Mercedes Wesley 09/07/23 14:55:
Patient on aspiration precautions.
Per patient VSE Sunday.
Original Note:
Patient seen bedside.
Cont IV diuresis.
Plan: home with Oliva HERNDON
Oliva HERNDON
fax#[phone]
--- NOTE | 2023-09-07 13:48 | PTOTSP ---
SPEECH THERAPY SWALLOW EVALUATION:
Patient presents with grossly functional oropharyngeal swallow at time of CSE; However, patient self-reporting new onset dysphagia symptoms >1 week characterized by coughing with solids and liquids. Unclear etiology. Despite no overt signs of
aspiration at bedside and no significant predisposing dysphagia risk factors, patient remains risk for aspiration and related complications given complaints of dysphagia symptoms, current pneumonia and respiratory status. Chest X-ray indicating RLL
pneumonia, suspicious for aspiration-related pneumonia. Recommend Videofluoroscopic Swallowing Study to further assess swallow physiology. Recommend CAUTIOUS oral diet until VSE of IDDSI Level 6 Soft and Bite Sized with thin liquids. Strict
aspiration precautions: Partial supervision with meals to assess for signs of aspiration; upright positioning; small single sips and bites; slow rate of intake; medications whole (cut if large) in puree; only eat when awake/alert; only provide p.o.
if SpO2>90% and RR<30. Oral care QID and increased mobility as tolerated/able to reduce risk for aspiration-related complications. Should patient demonstrate signs of aspiration or a decline in respiratory status, recommend making NPO until VSE.
Speech therapy to follow, assess diet tolerance and modify as appropriate, and provide further recommendations following VSE procedure.
RECOMMEND:
1) Videofluoroscopic Swallowing Study
2) CAUTIOUS oral diet until VSE of IDDSI Level 6 Soft and Bite Sized with thin liquids
3) Strict aspiration precautions: Partial supervision with meals to assess for signs of aspiration; upright positioning; small single sips and bites; slow rate of intake; medications whole (cut if large) in puree; only eat when awake/alert; only
provide p.o. if SpO2>90% and RR<30
4) Oral care QID and increased mobility as tolerated/able to reduce risk for aspiration-related complications
5) Should patient demonstrate signs of aspiration or a decline in respiratory status, recommend making NPO until VSE
6) Speech therapy to follow, assess diet tolerance and modify as appropriate, and provide further recommendations following VSE procedure
--- NOTE | 2023-09-07 15:33 | W.PN.HOSP.TC ---
Today's Communication/Plan
-
All discussed with the patient
Assessment and
Assessment / Plan
Assessment / Plan
Physical exam:
General: Sleepy, arousable but oriented x3, not in distress and holds appropriate conversation.
HEENT: No active discharge, ecchymosis or bruising, moist lips, tongue and mucous membrane.
Eyes: No discharge or red conjunctiva, no nystagmus, pupils are reactive and equal
Neck:Supple, no JVD no bruit no goiter.
Respiratory: Normal AP contour and diameter, normal chest wall movement, normal respiratory effort, no respiratory distress,
Lungs: Good air entry bilaterally, no wheezing or rhonchi, no rales or crackles
Heart: S1, S2 regular, normal rate, no added sound. Moderate lower extremities edema
Gastrointestinal: Positive bowel sounds, soft, nontender, no guarding or rigidity or organomegaly
Musculoskeletal: , no chest wall abnormality or tenderness. All joints and extremities have good range of motion, no muscle tenderness or any joint swelling or tenderness.
Extremities: No pitting edema, good peripheral pulses, good range of motion
Skin: Warm and dry, no ulceration, normal color.
Assessment and plan:
PLAN:
# Acute on chronic HFrEF exacerbation status post ICD, overall feels some improvement
-Check I's and O's, daily weights
-Chest x-ray shows possible right lower lobe pneumonia which is stable, cardiomegaly which is stable,
-Clinically no evidence of pneumonia, Pro-Evert's is negative already discontinued.
-Recent echo shows EF of 30 to 35%
-Fluid restriction
-Continue IV diuresis
Cardiology input appreciated
All discussed with the patient, He is currently a low white cell count as well as a little worse on admission, will recheck.
Cardiology wants to be monitored
Choking episode after a meal.
Had a swallowing eval and they recommended soft diet and video swallow eval which has been ordered.
Aspiration precaution.
# Chronic non-PR troponin elevation in the setting of CKD
-No chest pain
Neutropenia,
, Chronically has a low white cell count, slightly worse on admission.
Recheck
No evidence of infection,Pro-Evert's was negative.
Permanent atrial fibrillation status post Watchman
-Not on anticoagulation
-Continue aspirin
-Continue metoprolol
Aortic stenosis status post TAVR
History of strep bovis bacteremia/endocarditis
History of Staph epidermidis bacteremia secondary to infected pacemaker lead extraction and replacement at [facility]
CKD stage IV
-Renal function stable
Hyperlipidemia
-Continue statin
Chronic pain with narcotic dependence
BPH
-Continue tamsulosin
Obesity
Chronic anemia secondary to renal disease
-Hemoglobin stable at 8.7
-Continue iron supplement
Pancreatic mass lesion on CT scan
Insomnia
-Continue Trelegy
Full code
DVT prophylaxis�heparin
Cardiac diet
May need couple more days
Specially the video swallowing eval
Anticipated Discharge: > 48 hours
Subjective/Interval History
-
Date of Service: September 07, 2023
Seen and examined, awake and alert, sleepy, had some choking and coughing on his breakfast earlier otherwise no chest pain or shortness of breath or fever or chill,
Had a swallowing evaluation done later.
Admit he is urinating well but weight is dropped but not
Objective Data
-
Labs:
Laboratory Results
09/07/23
07:44
Sodium 138
Potassium 3.7
Chloride 96 L
Carbon Dioxide 38 H
BUN 60 H
Creatinine 2.2 H
Glucose 92
Calcium 9.6
Vital Signs:
Vital Signs
Temp Pulse Resp BP Pulse Ox
97.2 F 70 28 129/71 99
09/07/23 11:53 09/07/23 11:53 09/07/23 11:53 09/07/23 07:23 09/07/23 11:53
I&O
09/06/23 09/07/23 09/08/23
07:59 07:59 07:59
Intake Total 120 / 120 720 / 720
Output Total 300 / 300 1125 / 1125
Balance -180 / -180 -405 / -405
Review of Systems
-
All other systems: Reviewed and negative
[2023-09-07 18:13] LABS: Glucose - Point of Care 198 mg/dl (70-99)
[2023-09-07] MEDS: FLOMAX 0.400000000000000022 MG PO (21:07)
[2023-09-07] MEDS: LIPITOR 40 MG PO (21:07)
[2023-09-07] MEDS: SENOKOT 17.1999999999999993 MG PO (21:07)
[2023-09-07] MEDS: MELATONIN 6 MG PO (21:08)
[2023-09-07] MEDS: DESYREL PO (22:07)
[2023-09-08 03:37] VITALS: BP 135/59
[2023-09-08 07:00] VITALS: BP 115/51
[2023-09-08 08:15] LABS: Glucose - Point of Care 125 mg/dl (70-99)
[2023-09-08 08:46] LABS: Hematocrit 27.3 % (39.0-52.0); Hemoglobin 8.3 g/dL (13.0-18.0); Mean Corp Hgb Conc. 30.4 g/dL (33.0-37.0); Mean Corpuscular Hgb 24.1 pg (27.0-31.0); Mean Corpuscular Volume 79.4 fL (80.0-94.0); Mean Platelet Volume 10.1 fL (7.4-10.4); Platelet Count 138 10^3/uL (130-400); Red Blood Cell Count 3.44 10^6/uL (4.70-6.10); Red Cell Dist. Width 15.6 % (11.5-14.5); White Blood Cell Count 2.7 10^3/uL (4.8-10.8)
[2023-09-08 09:19] LABS: Blood Urea Nitrogen 67 mg/dl (9-20); Calcium 10.1 mg/dl (8.4-10.2); Chloride 93 mmol/L (98-107); Estimated Creatinine Clearance 34 ml/min; Glucose 97 mg/dl (70-99); Potassium 3.8 mmol/L (3.5-5.1); Sodium 139 mmol/L (135-145); eGFR 29.91
[2023-09-08 09:30] LABS: Carbon Dioxide 38 mmol/L (22-30)
[2023-09-08] MEDS: VITAMIN D3 (cholecalciferol) 25 MCG PO (10:37)
[2023-09-08] MEDS: TOPROL XL 25 MG PO (10:37)
[2023-09-08] MEDS: KCL 20 MEQ PO ×2 (10:37→20:25)
[2023-09-08] MEDS: LOW STRENGTH ASPIRIN 81 MG PO (10:37)
[2023-09-08] MEDS: FEOSOL 325 MG PO (10:37)
[2023-09-08] MEDS: HEPARIN 5000 UNITS SC ×2 (10:38→20:25)
[2023-09-08] MEDS: COLACE PO (10:38)
--- NOTE | 2023-09-08 10:38 | W.PN.HOSP.TC ---
Today's Communication/Plan
-
IV Bumex - dosing per Cards
start IV Unasyn, VSE Sunday
Assessment / Plan
Assessment / Plan
Assessment:
PLAN:
Acute on chronic HFrEF exacerbation status post ICD
- Recent echo shows EF of 30 to 35%
- Cardiology following; IV Bumex which requires intensive monitoring
Aspiration pneumonia suspected
- Chest x-ray shows possible right lower lobe pneumonia which is stable
- VSE Sunday per ST rec
- start IV Unasyn
Chronic non-[place] troponin elevation in the setting of CKD
- No chest pain
Permanent atrial fibrillation status post Watchman
- Not on anticoagulation
- continue aspirin
- continue metoprolol
Aortic stenosis status post TAVR
History of strep bovis bacteremia/endocarditis
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
CKD stage IV
- renal function stable
Hyperlipidemia
- continue statin
Chronic pain with narcotic dependence
BPH
-Continue tamsulosin
Obesity
Chronic anemia secondary to renal disease
- hemoglobin stable at 8.3
- continue iron supplement
DVT ppx: Heparin
Code: Full
Anticipated Discharge: > 48 hours
Subjective/Interval History
-
Date of Service: September 08, 2023
coughing, with sputum yellow
Objective Data
-
Labs:
Laboratory Results
09/08/23
08:32
WBC 2.7 L
Hgb 8.3 L
Hct 27.3 L
Plt Count 138
Sodium 139
Potassium 3.8
Chloride 93 L
Carbon Dioxide 38 H
BUN 67 H
Creatinine 2.2 H
Glucose 97
Calcium 10.1
Vital Signs:
Vital Signs
Temp Pulse Resp BP Pulse Ox
97.8 F 70 22 115/51 92
09/08/23 07:00 09/08/23 07:00 09/08/23 07:00 09/08/23 07:00 09/08/23 07:00
I&O
09/07/23 09/08/23 09/09/23
06:59 06:59 06:59
Intake Total 720 / 720 240 / 240
Output Total 1125 / 1125 350 / 350
Balance -405 / -405 -110 / -110
Physical Exam
-
General: No Apparent Distress
HEENT: Normocephalic and Atraumatic
Respiratory: Rhonchi
Cardiac: Regular Rhythm and S1/S2
GI: Soft
Genito-urinary: No Costovertebral Tender
Musculoskeletal: No Edema
Neuro: AO x 3
Psych: Calm
Data Reviewed
-
Total Time Spent with Patient (in minutes): 51
Labs: Labs Reviewed by me
[2023-09-08] MEDS: BUMEX 3 MG IV ×2 (10:40→17:42)
[2023-09-08] MEDS: UNASYN IV ×3 (10:41→22:21)
[2023-09-08 11:00] VITALS: BP 130/61
--- NOTE | 2023-09-08 11:34 | W.PN.CD ---
Addendum entered and electronically signed by Tato Perez MD 09/08/23 13:10:
I saw and examined the patient.
The SWEATBAND SHAPER's note was reviewed and I agree with the note.
Comment: 78-year-old male with CAD, non-ischemic cardiomyopathy EF 30-35%, HFrEF, permanent atrial fibrillation (Watchman device on aspirin), aortic stenosis s/p TAVR, ICD with lead extraction 08/28/2022, dyslipidemia, chronic anemia and CKD3b, who
presented to the ER with complaints of shortness of breath x 2 days. He has CHF which has been improving.
- transition to PO diuretics tomorrow 3mg of bumex bid
We will sign off please call back with questions/concerns.
Original Note:
Today's Communication / Plan
-
transition to oral diuretic starting tomorrow morning
Impression / Plan
-
HFrEF - acute on chronic.
- transition to po diuretic, increase to 3mg BID (from 2mg BID)
- monitor daily weights, I&Os.
- echo 08/10/23 as below.
- continue GDMT which is limited by CKD3b.
New leukopenia - CXR with possible RLL PNA.
- abx started by primary service
Afib - permanent.
- AV paced on tele.
- stable, rate controlled.
- no OAC, he is s/p Watchman 04/11/22, on ASA.
s/p TAVR - stable on echo.
ICD - stable with normal function.
- followed in our outpatient device clinic.
CKD - stage 3b.
- stable.
- monitor with diuresis.
Anemia - chronic.
- per hospitalist.
Echo 08/10/23: Left ventricle is dilated. LVEF 30-35%, global hypokinesis, enlarged RV size with normal RV function, ICD wire seen in right ventricle. Severely dilated left and right atrium. Mild to moderate MR, well-seated TAVR with peak/mean
gradients of 25/12 mmHg. Mild paravalvular AR. Moderate to severe TR, Estimated PASP of 55-60 mmHg, the IVC is dilated and does not collapse.�No significant change since the prior study of 08/22/2022.
Physical Exam
Vital Signs/Labs
Vital Signs
Temp Pulse Resp BP Pulse Ox
97.8 F 72 22 126/60 92
09/08/23 07:00 09/08/23 10:40 09/08/23 07:00 09/08/23 10:40 09/08/23 07:00
09/07/23 09/08/23 09/09/23
06:59 06:59 06:59
Actual Weight 108.21 kg
09/08/23 08:32
09/08/23 08:32
Magnesium 2.0 mg/dl (1.6-2.3) 09/08/23 08:32
09/05/23
14:27
[id number] Pept 2400
LAB Results
09/05/23
14:27
Troponin I 0.041 H*
Physical Exam
Constitutional: No acute distress and Comfortable
EENT: Anicteric and Moist mucous membranes
Cardiovascular: Rhythm/rate is irregular and S1S2 is normal
Respiratory: Respiratory effort normal and Lungs clear to auscul.
GI: Soft, Distention absent, Flat, Non tender and Normal bowel sounds
Neuro/Psych: AO x 3
Other: Skin (warm and dry)
Data Reviewed
-
Date of Service: September 08, 2023
[2023-09-08 12:19] LABS: Glucose - Point of Care 138 mg/dl (70-99)
--- NOTE | 2023-09-08 15:13 | PTCARENOTE ---
Assumed care of pt from previous nurse. pt denies pain. Pt conts with fernandez, weakness. Pt is on tele running a-v paced. Pt call leon is within reach, pt rings nita. will cont to monitor.
[2023-09-08 16:58] LABS: Glucose - Point of Care 158 mg/dl (70-99)
[2023-09-08] MEDS: TYLENOL 1000 MG PO (17:36)
[2023-09-08 19:12] VITALS: BP 119/55
[2023-09-08] MEDS: LIPITOR 40 MG PO (22:21)
[2023-09-08] MEDS: MELATONIN 6 MG PO (22:22)
[2023-09-08] MEDS: FLOMAX 0.400000000000000022 MG PO (22:22)
[2023-09-08] MEDS: SENOKOT PO (22:23)
[2023-09-08] MEDS: DESYREL PO (22:27)
[2023-09-08 23:35] VITALS: BP 131/67
[2023-09-09 03:13] VITALS: BP 132/67
[2023-09-09] MEDS: UNASYN IV ×4 (04:25→23:29)
[2023-09-09 06:00] VITALS: BMI 33.7
[2023-09-09 07:22] VITALS: BP 115/52
[2023-09-09 07:43] LABS: Glucose - Point of Care 107 mg/dl (70-99)
[2023-09-09] MEDS: FEOSOL 325 MG PO (08:38)
[2023-09-09] MEDS: COLACE PO (08:38)
[2023-09-09] MEDS: BUMEX 3 MG PO ×2 (08:38→16:34)
[2023-09-09] MEDS: VITAMIN D3 (cholecalciferol) 25 MCG PO (08:39)
[2023-09-09] MEDS: TOPROL XL 25 MG PO (08:39)
[2023-09-09] MEDS: HEPARIN 5000 UNITS SC ×2 (08:39→19:55)
[2023-09-09] MEDS: LOW STRENGTH ASPIRIN 81 MG PO (08:39)
[2023-09-09] MEDS: KCL 20 MEQ PO ×2 (08:40→19:56)
[2023-09-09 09:19] LABS: Hematocrit 27.7 % (39.0-52.0); Hemoglobin 8.3 g/dL (13.0-18.0); Mean Corpuscular Hgb 23.5 pg (27.0-31.0); Mean Corpuscular Volume 78.5 fL (80.0-94.0); Mean Platelet Volume 10.5 fL (7.4-10.4); Platelet Count 150 10^3/uL (130-400); Red Blood Cell Count 3.53 10^6/uL (4.70-6.10); Red Cell Dist. Width 15.7 % (11.5-14.5); White Blood Cell Count 2.7 10^3/uL (4.8-10.8)
[2023-09-09 09:41] LABS: Blood Urea Nitrogen 65 mg/dl (9-20); Calcium 10.5 mg/dl (8.4-10.2); Carbon Dioxide 39 mmol/L (22-30); Chloride 92 mmol/L (98-107); Estimated Creatinine Clearance 35 ml/min; Glucose 95 mg/dl (70-99); Potassium 3.9 mmol/L (3.5-5.1); Sodium 141 mmol/L (135-145); eGFR 31.63
--- NOTE | 2023-09-09 11:36 | W.PN.HOSP.TC ---
Today's Communication/Plan
-
continue Unasyn
VSE Sunday
Assessment / Plan
Assessment / Plan
Assessment:
PLAN:
Acute on chronic HFrEF exacerbation status post ICD
- Recent echo shows EF of 30 to 35%
- Cardiology following; IV Bumex which requires intensive monitoring
Aspiration pneumonia suspected
- Chest x-ray shows possible right lower lobe pneumonia which is stable
- VSE Sunday per ST recs
- continue IV Unasyn, day 2
Chronic non-[place] troponin elevation in the setting of CKD
- No chest pain
Permanent atrial fibrillation status post Watchman
- Not on anticoagulation
- continue aspirin
- continue metoprolol
Aortic stenosis status post TAVR
History of strep bovis bacteremia/endocarditis
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
CKD stage IV
- renal function stable
Hyperlipidemia
- continue statin
Chronic pain with narcotic dependence
BPH
-Continue tamsulosin
Obesity
Chronic anemia secondary to renal disease
- hemoglobin stable at 8.3
- continue iron supplement
DVT ppx: Heparin
Code: Full
Anticipated Discharge: 24 - 48 hours
Subjective/Interval History
-
Date of Service: September 09, 2023
resting comfortably
reports cough is improving
Objective Data
-
Labs:
Laboratory Results
09/09/23
08:29
WBC 2.7 L
Hgb 8.3 L
Hct 27.7 L
Plt Count 150
Sodium 141
Potassium 3.9
Chloride 92 L
Carbon Dioxide 39 H
BUN 65 H
Creatinine 2.1 H
Glucose 95
Calcium 10.5 H
Vital Signs:
Vital Signs
Temp Pulse Resp BP Pulse Ox
97.8 F 71 16 115/52 100
09/09/23 07:22 09/09/23 07:22 09/09/23 07:22 09/09/23 07:22 09/09/23 08:00
I&O
09/08/23 09/09/23 09/10/23
06:59 06:59 06:59
Intake Total 240 / 240 1463 / 1463
Output Total 350 / 350 2325 / 2325
Balance -110 / -110 -862 / -862
Physical Exam
-
General: No Apparent Distress
HEENT: Normocephalic and Atraumatic
Respiratory: Negative Wheezes or Rales
Cardiac: S1/S2
GI: Soft
Genito-urinary: No Costovertebral Tender
Neuro: AO x 3
Psych: Calm
Data Reviewed
-
Total Time Spent with Patient (in minutes): 42
Labs: Labs Reviewed by me
[2023-09-09 11:48] VITALS: BP 104/60
[2023-09-09 15:41] VITALS: BP 120/57
[2023-09-09] MEDS: SENOKOT PO (23:00)
[2023-09-09] MEDS: DESYREL PO (23:00)
[2023-09-09] MEDS: FLOMAX 0.400000000000000022 MG PO (23:29)
[2023-09-09] MEDS: MELATONIN 6 MG PO (23:29)
[2023-09-09] MEDS: LIPITOR 40 MG PO (23:29)
[2023-09-09 23:55] VITALS: BP 130/59
[2023-09-10] MEDS: UNASYN IV ×4 (03:53→21:24)
[2023-09-10 06:00] VITALS: BMI 34.2
[2023-09-10 07:30] VITALS: BP 124/60
[2023-09-10] MEDS: COLACE PO (08:19)
[2023-09-10] MEDS: FEOSOL 325 MG PO (08:25)
[2023-09-10] MEDS: TOPROL XL 25 MG PO (08:25)
[2023-09-10] MEDS: LOW STRENGTH ASPIRIN 81 MG PO (08:25)
[2023-09-10] MEDS: HEPARIN 5000 UNITS SC ×2 (08:25→20:58)
[2023-09-10] MEDS: BUMEX 3 MG PO ×2 (08:25→15:41)
[2023-09-10] MEDS: KCL 20 MEQ PO ×2 (08:25→20:59)
[2023-09-10] MEDS: VITAMIN D3 (cholecalciferol) 25 MCG PO (08:25)
[2023-09-10 08:55] LABS: Hematocrit 26.8 % (39.0-52.0); Hemoglobin 8.1 g/dL (13.0-18.0); Mean Corp Hgb Conc. 30.2 g/dL (33.0-37.0); Mean Corpuscular Hgb 23.7 pg (27.0-31.0); Mean Corpuscular Volume 78.4 fL (80.0-94.0); Mean Platelet Volume 9.5 fL (7.4-10.4); Platelet Count 128 10^3/uL (130-400); Red Blood Cell Count 3.42 10^6/uL (4.70-6.10); Red Cell Dist. Width 15.9 % (11.5-14.5); White Blood Cell Count 4.1 10^3/uL (4.8-10.8)
[2023-09-10 09:03] LABS: Blood Urea Nitrogen 70 mg/dl (9-20); Calcium 10.1 mg/dl (8.4-10.2); Chloride 93 mmol/L (98-107); Estimated Creatinine Clearance 34 ml/min; Glucose 101 mg/dl (70-99); Potassium 3.9 mmol/L (3.5-5.1); Sodium 142 mmol/L (135-145); eGFR 29.91
[2023-09-10 09:13] LABS: Carbon Dioxide 38 mmol/L (22-30)
--- NOTE | 2023-09-10 09:40 | PTOTSP ---
Speech Language Pathology
VIDEOFLUOROSCOPIC SWALLOWING EXAMINATION (VSE) completed. Overall, pt with mild pharyngeal dysphagia with penetration with consecutive sips of thin liquids. No other penetration or any aspiration noted.
Recommend:
(1) Upgrade to regular solids/thin liquids
(2) Aspiration precautions: single sips of liquid only via cup or straw
(3) Meds whole in puree unless able to take with single sip of liquid
(4) APPOINTMENT COORDINATOR to follow briefly
--- NOTE | 2023-09-10 10:41 | W.PN.HOSP.TC ---
Today's Communication/Plan
-
.
Assessment / Plan
Assessment / Plan
Physical Exam
-
General: No Apparent Distress
HEENT: Normocephalic and Atraumatic
Respiratory: Limited at the bases
Cardiac: S1, S2, positive murmur
GI: Soft and Nontender
Genito-urinary: No Costovertebral Tender
Musculoskeletal: No Edema
Neuro: AO x 3, followed commands.
Psych: Calm, no agitation.
# Exertional and resting sob
Multifactorial. Secondary to heart failure/poor inspiratory effort and atelectasis/obesity-sedentary lifestyle
Patient remains comfortable. Speaking in full sentences. Not in shortness of breath or acute distress. Used oxygen in the past and as needed at home. No history of smoking. Not on bronchodilators.. Recent V/q. that showed low probability test
with negative lower extremity Doppler. He was evaluated by pulmonary earlier this month. Recommend to continue treating heart failure.
Acute on chronic HFrEF exacerbation status post ICD
- Recent echo shows EF of 30 to 35%
- Cardiology following; IV Bumex which requires intensive monitoring
Aspiration pneumonia suspected
- Chest x-ray shows possible right lower lobe pneumonia which is stable
- VSE today.
Patient did not have cough or fever. No leukocytosis
- continue IV Unasyn, day 3
Chronic non-[place] troponin elevation in the setting of CKD
- No chest pain
Permanent atrial fibrillation status post Watchman
- Not on anticoagulation
- continue aspirin
- continue metoprolol
Aortic stenosis status post TAVR
History of strep bovis bacteremia/endocarditis
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
CKD stage IV
- renal function stable
Hyperlipidemia
- continue statin
Chronic pain with narcotic dependence
BPH
-Continue tamsulosin
Obesity
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
and hemoglobin around 8. He also is status post watchman and has been off anticoagulation okay to resume 81 mg of aspirin. given his age and multiple comorbidities we will hold on repeat endoscopy colonoscopy unless he has active bleeding but if
over the next couple of weeks medically stable and family and patient agreeable to proceed with endoscopy and colonoscopy will schedule this as outpatient.� Continue iron supplement
DVT ppx: Heparin
Code: Full
Total time spent to see the patient, examine the patient on the floor, review data and lab results, discuss treatment plan with patient, nursing staff around 55 minutes
Anticipated Discharge: 24 - 48 hours
Subjective/Interval History
-
Date of Service: September 10, 2023
No chest pain
He feels sob or heavy breathing at times
No fevers
Objective Data
-
Labs:
Laboratory Results
09/10/23
08:14
WBC 4.1 L
Hgb 8.1 L
Hct 26.8 L
Plt Count 128 L
Sodium 142
Potassium 3.9
Chloride 93 L
Carbon Dioxide 38 H
BUN 70 H
Creatinine 2.2 H
Glucose 101 H
Calcium 10.1
Vital Signs:
Vital Signs
Temp Pulse Resp BP Pulse Ox
97.7 F 73 17 124/60 98
09/10/23 07:30 09/10/23 07:30 09/10/23 07:30 09/10/23 07:30 09/10/23 07:30
I&O
09/09/23 09/10/23 09/11/23
06:59 06:59 06:59
Intake Total 1606 / 1606 1040 / 1040 480 / 480
Output Total 2325 / 2325 850 / 850 300 / 300
Balance -719 / -719 190 / 190 180 / 180
--- NOTE | 2023-09-10 11:06 | W.HF.CON ---
Heart Failure
- LV Function
Left ventricular function study result: LV Ejection fraction </= 35%
Ejection Fraction Percentage: 30-35
- ARNI
Patient already on ARNI: No
Heart Failure ARNI Contraindication: Worsening Renal Function
- ACEI/ARB
Patient already on ACEI/ARB: No
Heart Failure ACEI/ARB Contraindication: Worsening Renal Function
- Beta Hoda
Patient already on Evidence Based Beta Hoda: Yes
- Mineralocorticord Receptor Antagonist
Patient already on MRA: No
Heart Failure MRA Contraindication: Acute Renal Insufficiency
- SGLT-2 Inhibitor
Patient already on SGLT-2 Inhibitor: No
Heart Failure SGLT-2 Inhibitor Contraindication: Patient Refusal
- Afib Anticoagulation
Patient already on Anticoagulation for Afib: No
Heart Failure Afib Anticoagulation Contraindication: Patient Refusal ([facility] 04/11/22)
- NYHA CHF Classification
NYHA CHF Classification Level: Class III - Symptoms w/ min exertion, interferes w/ nml daily activity
- ACC/AHA Stage
ACC/AHA Stage: Stage C: Symptomatic Heart Failure
[2023-09-10 11:30] VITALS: BP 120/53
[2023-09-10 12:00] VITALS: BMI 34.2
[2023-09-10 15:00] VITALS: BP 117/60
[2023-09-10] MEDS: FLOMAX 0.400000000000000022 MG PO (21:21)
[2023-09-10] MEDS: MELATONIN 6 MG PO (21:21)
[2023-09-10] MEDS: LIPITOR 40 MG PO (21:21)
[2023-09-10] MEDS: DESYREL PO (21:22)
[2023-09-10] MEDS: SENOKOT PO (21:27)
[2023-09-10] MEDS: SENOKOT 17.1999999999999993 MG PO (22:02)
[2023-09-10 23:37] VITALS: BP 122/77
[2023-09-11 01:14] LABS: Glucose - Point of Care 111 mg/dl (70-99)
[2023-09-11] MEDS: UNASYN IV ×4 (04:27→21:30)
[2023-09-11 06:00] VITALS: BMI 34.5
[2023-09-11 07:18] VITALS: BP 123/66
[2023-09-11] MEDS: BUMEX 3 MG PO ×2 (08:35→16:30)
[2023-09-11] MEDS: COLACE PO (08:36)
[2023-09-11] MEDS: HEPARIN 5000 UNITS SC ×2 (08:36→19:51)
[2023-09-11] MEDS: TOPROL XL 25 MG PO (08:36)
[2023-09-11] MEDS: KCL 20 MEQ PO ×2 (08:36→19:52)
[2023-09-11] MEDS: LOW STRENGTH ASPIRIN 81 MG PO (08:36)
[2023-09-11] MEDS: FEOSOL 325 MG PO (08:36)
[2023-09-11] MEDS: VITAMIN D3 (cholecalciferol) 25 MCG PO (08:36)
[2023-09-11] MEDS: ZAROXOLYN 2.5 MG PO (08:39)
--- NOTE | 2023-09-11 10:50 | W.PN.HOSP.TC ---
Today's Communication/Plan
-
likely dc in am
Assessment / Plan
Assessment / Plan
Physical Exam
-
General: No Apparent Distress
HEENT: Normocephalic and Atraumatic
Respiratory: Limited at the bases
Cardiac: S1, S2, positive murmur
GI: Soft and Nontender
Genito-urinary: No Costovertebral Tender
Musculoskeletal: No Edema
Neuro: AO x 3, followed commands.
Psych: Calm, no agitation.
# Exertional and resting sob
Multifactorial. Secondary to heart failure/poor inspiratory effort and atelectasis/obesity-sedentary lifestyle
Patient remains comfortable. Speaking in full sentences. Not in shortness of breath or acute distress. Used oxygen in the past and as needed at home. No history of smoking. Not on bronchodilators.. Recent V/q. that showed low probability test
with negative lower extremity Doppler. He was evaluated by pulmonary earlier this month. Recommend to continue treating heart failure.
Acute on chronic HFrEF exacerbation status post ICD
- Recent echo shows EF of 30 to 35%
- S/P IV Bumex, now on oral Bumex.
Appreciate cardiology input
Aspiration pneumonia suspected
- Chest x-ray shows possible right lower lobe pneumonia which is stable
- VSE, no aspiration noted, ok for regular diet
Patient did not have cough or fever. No leukocytosis
- continue IV Unasyn, day 4
Chronic non-[place] troponin elevation in the setting of CKD
- No chest pain
Permanent atrial fibrillation status post Watchman
- Not on anticoagulation
- continue aspirin
- continue metoprolol
Aortic stenosis status post TAVR
History of strep bovis bacteremia/endocarditis
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
CKD stage IV
- renal function stable
Hyperlipidemia
- continue statin
# Chronic pain with narcotic dependence
BPH
-Continue tamsulosin
#Obesity
Does not follow healthy diet
Counseled and verbalized understanding.
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
and hemoglobin around 8. He also is status post watchman and has been off anticoagulation okay to resume 81 mg of aspirin. given his age and multiple comorbidities we will hold on repeat endoscopy colonoscopy unless he has active bleeding but if
over the next couple of weeks medically stable and family and patient agreeable to proceed with endoscopy and colonoscopy will schedule this as outpatient.� Continue iron supplement
DVT ppx: Heparin
Code: Full
Total time spent to see the patient, examine the patient on the floor, review data and lab results, discuss treatment plan with patient, nursing staff around 57 minutes
Anticipated Discharge: Within 24 hours
Subjective/Interval History
-
Date of Service: September 11, 2023
No fevers
No hypotension
Objective Data
-
Vital Signs:
Vital Signs
Temp Pulse Resp BP Pulse Ox
97.4 F 71 28 123/66 97
09/11/23 07:18 09/11/23 08:36 09/11/23 07:18 09/11/23 08:36 09/11/23 08:00
I&O
09/10/23 09/11/23 09/12/23
06:59 06:59 06:59
Intake Total 1326 / 1326 2566 / 2566
Output Total 850 / 850 1000 / 1000
Balance 476 / 476 1566 / 1566
--- NOTE | 2023-09-11 14:19 | PN.CDI ---
Addendum entered and electronically signed by Yari Vilchis MD 09/11/23 14:46:
Aspiration Pneumonia was present on admission and is still being monitored, evaluated or treated.
Original Note:
CDI
- -
CDI:
Physician Documentation Request
Admit Date: 09/05/23 18:04
Dear Doctor Deng,
Clinical Indicators:
Patient admitted with acute on chronic HFrEF exacerbation.
09/05 CXR report on admission, 'Possible right lower lobe pneumonia. Stable.'
09/06 Speech Therapy PN, 'patient self-reporting new onset dysphagia symptoms >1 week characterized by coughing with solids and liquids.'
09/10 PN, 'Aspiration pneumonia suspected..VSE, no aspiration noted, ok for regular diet Patient did not have cough or fever. No leukocytosis- continue IV Unasyn, day 4.'
Please clarify the following:
Aspiration Pneumonia was present on admission and is still being monitored, evaluated or treated.
Aspiration Pneumonia was not present on admission and remains a suspected diagnosis.
Aspiration Pneumonia was ruled out.
Other, please specify.
Use of terms such as suspected, likely, concern for, or probable (associated with a specific diagnosis that is being evaluated, monitored, or treated as if it exists) are acceptable and can be coded in the inpatient setting, when documented at the
time of discharge.
Thank you,
ANNY Salinas RN
CDI Specialist
available via tiger text
Please use your independent medical judgment in providing your response.
--- NOTE | 2023-09-11 15:15 | CM ---
Chart reviewed
Diuresing - now on PO med
Poss d/c tomorrow
Home care with [facility]
fax#[phone]
[2023-09-11 15:17] VITALS: BP 145/74
[2023-09-11] MEDS: FLOMAX 0.400000000000000022 MG PO (21:30)
[2023-09-11] MEDS: MELATONIN 6 MG PO (21:30)
[2023-09-11] MEDS: LIPITOR 40 MG PO (21:30)
[2023-09-11] MEDS: DESYREL 25 MG PO (21:33)
[2023-09-11] MEDS: SENOKOT PO (21:39)
[2023-09-11 23:15] VITALS: BP 116/70
[2023-09-12] MEDS: UNASYN IV ×4 (03:02→21:10)
[2023-09-12 04:45] VITALS: BMI 34.5
[2023-09-12 07:32] VITALS: BP 118/52
[2023-09-12 08:42] LABS: Blood Urea Nitrogen 73 mg/dl (9-20); Calcium 9.9 mg/dl (8.4-10.2); Carbon Dioxide 37 mmol/L (22-30); Chloride 93 mmol/L (98-107); Estimated Creatinine Clearance 27 ml/min; Glucose 128 mg/dl (70-99); Potassium 3.9 mmol/L (3.5-5.1); Sodium 139 mmol/L (135-145); eGFR 22.39
[2023-09-12] MEDS: BUMEX 3 MG PO (09:27)
[2023-09-12] MEDS: FEOSOL 325 MG PO (09:30)
[2023-09-12] MEDS: HEPARIN 5000 UNITS SC ×2 (09:31→19:54)
[2023-09-12] MEDS: KCL 20 MEQ PO ×2 (09:36→19:54)
[2023-09-12] MEDS: TOPROL XL 25 MG PO (09:37)
[2023-09-12] MEDS: LOW STRENGTH ASPIRIN 81 MG PO (09:37)
[2023-09-12] MEDS: VITAMIN D3 (cholecalciferol) 25 MCG PO (09:37)
[2023-09-12] MEDS: COLACE 100 MG PO (09:39)
--- NOTE | 2023-09-12 10:32 | CM ---
Addendum entered by Aileen Villasenor 09/12/23 16:40:
Ambulance slate picker confirmed for 9:00 PM
Per Attending, O2 not needed
Addendum entered by Aileen Villasenor 09/12/23 16:35:
Spoke with patient's brother, Orestes Welsh ([phone]); he will be at the house this evening when patient arrives.
Brother ensures that patient will provide a credit card to pay for ambulance fee $410.00
Addendum entered by Aileen Villasenor 09/12/23 15:54:
When PT met with patient to re-evaluate before discharge, patient refused to get out of bed to assess
Addendum entered by Aileen Villasenor 09/12/23 15:26:
Patient refused to get out of bed to demonstrate that he can sit in a chair.
CM spoke with patient's brother Orestes; made him aware that patient will be responsible for payment of ambulance services to transport patient to home
Addendum entered by Aileen Villasenor 09/12/23 14:04:
Per patient's brother, Oxygen vendor is [employer] #
Addendum entered by Aileen Villasenor 09/12/23 12:59:
IMM explained and signed
Addendum entered by Aileen Villasenor 09/12/23 12:34:
Patient's brother notified of discharge plan; will call CM back with O2 vendor information
Home O2 evaluation pending
Patient requires ambulance transport
Original Note:
Plan: Discharge to home with home care today
[facility] notified via [facility] fax# [phone]
--- NOTE | 2023-09-12 11:03 | W.PN.HOSP.TC ---
Today's Communication/Plan
-
.
Assessment / Plan
Assessment / Plan
Physical Exam
-
General: No Apparent Distress
HEENT: Normocephalic and Atraumatic
Respiratory: Limited at the bases but no crackles or wheezes.
Cardiac: S1, S2, positive murmur
GI: Soft and Nontender
Genito-urinary: No Costovertebral Tender
Musculoskeletal: No Edema
Neuro: AO x 3, followed commands.
Psych: Calm, no agitation.
# Exertional and resting sob
Multifactorial. Secondary to heart failure/poor inspiratory effort and atelectasis/obesity-sedentary lifestyle
Patient remains comfortable. Speaking in full sentences. Not in shortness of breath or acute distress. Used oxygen in the past and as needed at home. No history of smoking. Not on bronchodilators.. Recent V/q. that showed low probability test
with negative lower extremity Doppler. He was evaluated by pulmonary earlier this month. Recommend to continue treating heart failure.
Acute on chronic HFrEF exacerbation status post ICD
- Recent echo shows EF of 30 to 35%
- S/P IV Bumex, now on oral Bumex.
Appreciate cardiology input
Aspiration pneumonia suspected
- Chest x-ray shows possible right lower lobe pneumonia which is stable
- VSE, no aspiration noted, ok for regular diet
Patient did not have cough or fever. No leukocytosis
- continue IV Unasyn, day 5
Chronic non-[place] troponin elevation in the setting of CKD
- No chest pain
Permanent atrial fibrillation status post Watchman
- Not on anticoagulation
- continue aspirin
- continue metoprolol
Aortic stenosis status post TAVR
History of strep bovis bacteremia/endocarditis
History of Staph epidermidis bacteremia secondary to infected pacemaker lead extraction and replacement at [facility]
CKD stage IV
- renal function stable
Hyperlipidemia
- continue statin
# Chronic pain with narcotic dependence
BPH
-Continue tamsulosin
#Obesity
Does not follow healthy diet
Counseled and verbalized understanding.
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
and hemoglobin around 8. He also is status post watchman and has been off anticoagulation okay to resume 81 mg of aspirin. given his age and multiple comorbidities we will hold on repeat endoscopy colonoscopy unless he has active bleeding but if
over the next couple of weeks medically stable and family and patient agreeable to proceed with endoscopy and colonoscopy will schedule this as outpatient.� Continue iron supplement
DVT ppx: Heparin
Code: Full
I recommended SNF/rehab but patient declined
Total discharge time spent to see the patient, examine the patient on the floor, review data and lab results, discuss discharge plan with patient, nursing staff around 67 minutes
Anticipated Discharge: Today
Subjective/Interval History
-
Date of Service: September 12, 2023
he feels better, ready to go home
Objective Data
-
Labs:
Laboratory Results
09/12/23
07:57
Sodium 139
Potassium 3.9
Chloride 93 L
Carbon Dioxide 37 H
BUN 73 H
Creatinine 2.8 H
Glucose 128 H
Calcium 9.9
Vital Signs:
Vital Signs
Temp Pulse Resp BP Pulse Ox
97.9 F 71 18 118/52 92
09/12/23 07:32 09/12/23 09:27 09/12/23 07:32 09/12/23 09:27 09/12/23 09:19
I&O
09/11/23 09/12/23 09/13/23
06:59 06:59 06:59
Intake Total 2566 / 2566 1565 / 1565
Output Total 1000 / 1000 1300 / 1300
Balance 1566 / 1566 265 / 265
--- NOTE | 2023-09-12 12:31 | W.DCSUMMARY ---
Discharge Summary
Discharge Data
Date of Admission: 09/05/23
Date of Discharge: 09/12/23
-
Pending Results: No
Hospital Course
78 years old male presented with shortness of breath for a few days duration. Patient was diagnosed with acute on chronic heart failure with reduced ejection fraction. Patient was evaluated by crust sorter. He was started on intravenous Bumex
treatment. Patient had underlying chronic kidney disease stage IV. Renal function and potassium level were monitored. He had mild elevation in troponin and was diagnosed with chronic nonischemic troponin elevation in the setting of heart
failure and chronic kidney disease. Patient did not have chest pain. Patient reported dry cough. He had leukopenia with no fever. He had chest radiograph that showed stable right lower lobe opacity with possible pneumonia. Patient was
evaluated by speech therapist. He had video swallow that showed no significant aspiration. Patient received 5 days of empiric intravenous antibiotic. His oxygenation improved. Patient declined to do ambulatory oxygen testing. His resting oxygen
remained 91 to 92% on room air. He was not qualified for home oxygen. Patient reported that he used oxygen at home in the past. Physical therapy evaluated the patient. Recommended shelter facility or home physical therapy. Patient
expressed his wishes to go to home with home health and he declined [facility]/rehabilitation placement. He remained hemodynamically stable. Patient was discharged in a stable condition. He will follow with cardiology as outpatient. He was
advised to follow-up with his primary care doctor for further management in outpatient setting.
Discharge Plan
-
Patient Disposition: Home with Home Care
Discharge Diagnosis/Procedures: Acute on chronic heart failure with reduced ejection fraction
Acute hypoxic respiratory insufficiency
Diet: Low Fat, Low Sodium and Restrict fluids to 48 oz
Specialty Instructions: Weigh Daily- Call MD for wt gain/loss 3 lbs overnight/5 lbs in 1 week
Instructions: *PCP/Other Customer Sales Service Manager Heart Failure Instructions
Referrals:
Navya Farr CRNP [Specified Professional Personl] - 09/20/23 2:20 pm
Román Romero DO [Family Provider] - in less than 1 week
Prescriptions:
New
bumetanide 1 mg Tablet
3 mg PO BID@0800,1600 Qty: 180 0RF
Continued
atorvastatin 40 MG tablet
40 mg PO HS
metoprolol succinate [Toprol XL] 25 mg Tablet Extended Release 24 Hr
25 mg PO DAILY
tamsulosin [Flomax] 0.4 mg Capsule
0.4 mg PO HS
cholecalciferol (vitamin D3) [Vitamin D3] 25 mcg (1,000 unit) Tablet
25 mcg PO DAILY
metolazone 2.5 mg Tablet
2.5 mg PO TUTH
sennosides 8.6 mg Tablet
17.2 mg PO HS
trazodone 50 mg Tablet
25 mg PO HS
polyethylene glycol 3350 [Miralax] 17 gram Powder In Packet
17 g PO DAILY PRN (Reason: constipation)
melatonin 3 mg Tablet
6 mg PO HS
docusate sodium 100 mg Capsule
100 mg PO DAILY
aspirin 81 mg Tablet,Chewable
81 mg PO DAILY
potassium chloride 20 mEq Tablet Extended Release
20 meq PO BID
acetaminophen [Pain Relief ES (acetaminophen)] 500 mg tablet
1,000 mg PO Q8HPRN PRN (Reason: mild pain)
ferrous sulfate [FeroSul] 325 mg (65 mg iron) tablet
325 mg PO DAILY
Discontinued
bumetanide 2 mg tablet
2 mg PO BID
Discharge Orders:
Discharge Patient (As Directed); Ordered 09/12/23
Ordered By: Yari Vilchis
[2023-09-12 15:33] VITALS: BP 120/76
[2023-09-12] MEDS: BUMEX PO (15:37)
[2023-09-12] MEDS: SENOKOT PO (21:07)
[2023-09-12] MEDS: FLOMAX 0.400000000000000022 MG PO (21:10)
[2023-09-12] MEDS: LIPITOR 40 MG PO (21:10)
[2023-09-12] MEDS: MELATONIN PO (22:19)
[2023-09-12] MEDS: DESYREL PO (22:19)
[2023-09-12 23:06] VITALS: BP 161/83
[2023-09-16 11:54] LABS: Glucose - Point of Care 141 mg/dl (70-99)
== END 2023-09-12 23:59 | disposition home health service (06) | DRG 177 ==
LOC: 4 WEST ACU 18:04
PROVIDERS: Internal Medicine; ADMITTING PHYSICIAN Hospitalist; ATTENDING PHYSICIAN Internal Medicine; CONSULT PHYSICIAN Internal Medicine Cardiovascular Disease; EMERGENCY PHYSICIAN Student in an Organized Health Care Education/Training Program; FAMILY PHYSICIAN Family Medicine
DX: J69.0 Pneumonitis due to inhalation of food and vomit (principal); I50.23 Acute on chronic systolic (congestive) heart failure; I13.0 Hypertensive heart and chronic kidney disease with heart failure and stage 1 through stage 4 chronic kidney disease, or unspecified chronic kidney disease; N18.4 Chronic kidney disease, stage 4 (severe); I48.21 Permanent atrial fibrillation; F11.20 Opioid dependence, uncomplicated; I42.8 Other cardiomyopathies; E11.22 Type 2 diabetes mellitus with diabetic chronic kidney disease; E78.00 Pure hypercholesterolemia, unspecified; K21.9 Gastro-esophageal reflux disease without esophagitis; E11.36 Type 2 diabetes mellitus with diabetic cataract; G89.29 Other chronic pain; N40.0 Benign prostatic hyperplasia without lower urinary tract symptoms; E66.9 Obesity, unspecified; D63.1 Anemia in chronic kidney disease; D50.0 Iron deficiency anemia secondary to blood loss (chronic); G47.00 Insomnia, unspecified; R09.02 Hypoxemia; R06.89 Other abnormalities of breathing; K86.9 Disease of pancreas, unspecified; I25.10 Atherosclerotic heart disease of native coronary artery without angina pectoris; D72.819 Decreased white blood cell count, unspecified; I35.0 Nonrheumatic aortic (valve) stenosis; Z96.651 Presence of right artificial knee joint; Z95.810 Presence of automatic (implantable) cardiac defibrillator; Z95.2 Presence of prosthetic heart valve; Z87.891 Personal history of nicotine dependence; Z11.52 Encounter for screening for COVID-19; Z79.82 Long term (current) use of aspirin; Z68.34 Body mass index [BMI] 34.0-34.9, adult; Z86.19 Personal history of other infectious and parasitic diseases
CPT/HCPCS: 71046; 74230; 80048; 80053; 82962; 83735; 83880; 84145; 84484; 85025; 85027; 87502; 87811; 92526; 92610; 92611; 93005; 96374; 96375; 97162; 97166; 99291

== ENCOUNTER 2023-09-15 22:55 | Inpatient (IN) | payer MEDICARE, OTHER, SELFPAY ==
[2023-09-15 16:59] VITALS: BMI 35.1
[2023-09-15 17:10] VITALS: BP 140/73
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
[2023-09-15 17:58] LABS: % Basophils 0.2 % (0-2); % Eosinophils 0.7 % (0-6); % Immature Granulocytes 2.3 % (0-0.5); % Lymphocytes 17.2 % (20.5-51.1); % Monocytes 17.3 % (1.7-9.3); % Neutrophils 62.3 % (42.2-75.2); Absolute Immature Granulocytes 0.1 10^3/uL (0-0.05); Absolute Neutrophils 3.6 10^3/uL (1.4-6.5); Hemoglobin 8.5 g/dL (13.0-18.0); Mean Corp Hgb Conc. 31.5 g/dL (33.0-37.0); Mean Corpuscular Hgb 24.5 pg (27.0-31.0); Mean Corpuscular Volume 77.8 fL (80.0-94.0); Mean Platelet Volume 10.8 fL (7.4-10.4); Nucleated Red Blood Cells % 0 % (-); Platelet Count 121 10^3/uL (130-400); Red Blood Cell Count 3.47 10^6/uL (4.70-6.10); Red Cell Dist. Width 17.2 % (11.5-14.5); White Blood Cell Count 5.7 10^3/uL (4.8-10.8)
[2023-09-15 18:00] VITALS: BP 141/69
[2023-09-15 18:12] LABS: ALT (SGPT) 14 U/L (0-50); AST (SGOT) 25 U/L (17-59); Albumin 3.7 g/dl (3.5-5.0); Alkaline Phosphatase 93 U/L (38-126); Blood Urea Nitrogen 96 mg/dl (9-20); Calcium 9.9 mg/dl (8.4-10.2); Carbon Dioxide 36 mmol/L (22-30); Chloride 93 mmol/L (98-107); Estimated Creatinine Clearance 25 ml/min; Glucose 133 mg/dl (70-99); Potassium 4.1 mmol/L (3.5-5.1); Sodium 140 mmol/L (135-145); Total Bilirubin 0.8 mg/dl (0.2-1.3); Total Protein 6.6 g/dl (6.3-8.2); eGFR 19.82
[2023-09-15] MEDS: TYLENOL 1000 MG PO (18:28)
[2023-09-15 19:00] VITALS: BP 143/76
[2023-09-15 19:05] LABS: NT-proBNP 2950 pg/ml; Troponin I 0.039 ng/ml
[2023-09-15 20:00] VITALS: BP 139/73
[2023-09-15 20:47] VITALS: BP 142/91
[2023-09-15 21:00] VITALS: BP 114/65
--- NOTE | 2023-09-15 22:33 | HPS.HSE ---
Family Physician
-
Family Physician: Román Romero
Chief Complaint
-
SOB
History of Present Illness
Patient is a 78y M with PMH significant for chronic HFrEF, A-Fib and prior endocarditis who presents to ED complaining of SOB and weakness. Patient was recently hospitalized from 08/26 - 09/11 for CHF. He received diuresis with IV bumetanide
during that visit. Patient states that his dyspnea persisted despite diuresis. It was suspected that his dyspnea was multifactorial and due to deconditioning, atelectasis, obesity, CHF, etc. He did not qualify for / require supplemental oxygen.
Patient was discharged to home and states that she has had persistent dyspnea since that time. His SOB is present with even minimal exertion and he states that he cannot manage at home. He denies any chest pain, cough, fevers / chills, abdominal
pain.
He does state that he has had loose stools for the past 2-3 days. Non-bloody.
He weighs himself at home sometimes, but not every day. He does not believe his weight has significantly changed.
Medical History
Past Medical History
Past Medical History: Reports Other
Additional Past Medical History:
Chronic HFrEF
Non-Obstructive Coronary Artery Disease
Hx Severe Aortic Stenosis s/p Bioprosthetic AVR
Permanent Atrial Fibrillation s/p Watchman Device
Essential Hypertension
Hyperlipidemia
Diabetes Mellitus, Type II
CKD Stage IIIB
Obesity due to Excess Calories
Past Surgical History: Reports Other
Additional Past Surgical History:
TAVR
Watchman Device
ICD
Right Total Knee Replacement
Social History
Tobacco: Non-smoker
Alcohol: Occasional
Personal:
Living: With Family
Family History
Family History: CAD and Diabetes
Allergies / Home Medications
Allergies reflects when Allergies were last updated in [employer].
Home Medications with original date entered in [employer]
Allergy/Medication List:
Allergies
Allergy/AdvReac Type Severity Reaction Status Date / Time
No Known Allergies Allergy Verified 09/15/23 17:18
Home Medications
atorvastatin 40 mg tablet 40 mg PO HS High cholesterol 09/29/22
cholecalciferol (vitamin D3) 25 mcg (1,000 unit) tablet (Vitamin D3) 25 mcg PO DAILY Supplement 12/14/22
metoprolol succinate 25 mg tablet,extended release 24 hr (Toprol XL) 25 mg PO DAILY Blood Pressure 12/14/22
tamsulosin 0.4 mg capsule (Flomax) 0.4 mg PO HS Urinary Issue 12/14/22
acetaminophen 500 mg tablet (Pain Relief Extra Strength (acetaminophen)) 1,000 mg PO Q8HPRN PRN mild pain 08/09/23
aspirin 81 mg chewable tablet 81 mg PO DAILY Blood Clot Prevention/Tx 08/09/23
docusate sodium 100 mg capsule 100 mg PO DAILY Constipation 08/09/23
melatonin 3 mg tablet 6 mg PO HS Sleep 08/09/23
metolazone 2.5 mg tablet 2.5 mg PO TUTH Blood Pressure 08/09/23
polyethylene glycol 3350 17 gram oral powder packet (Miralax) 17 g PO DAILY PRN constipation 08/09/23
potassium chloride 20 mEq tablet,extended release 20 meq PO BID Electrolyte Repletion 08/09/23
sennosides 8.6 mg tablet 17.2 mg PO HS Constipation 08/09/23
trazodone 50 mg tablet 25 mg PO HS Sleep 08/09/23
ferrous sulfate 325 mg (65 mg iron) tablet (FeroSul) 325 mg PO DAILY Supplement 09/05/23
bumetanide 1 mg tablet 3 mg PO BID@0800,1600 #180 tabs 09/12/23
Review of Systems
-
History Source: Patient
A 12 point ROS was completed and negative except as noted: Yes
Constitutional: Reports Fatigue; Denies Fever, Weight Gain, Weight Loss or Chills
Respiratory: Reports Trouble Breathing; Denies Cough or Hemoptysis
Cardiac: Denies Chest Pain, Diaphoresis, Palpitations or Syncope
Abdomen/GI: Reports Diarrhea; Denies Abdominal Pain, Nausea, Vomiting, Bloody Stools or Black Stools
: Denies Dysuria, Frequency or Flank Pain
Neurological: Reports Weakness; Denies Dizzy or Headache
Psych: Reports Depression; Denies Anxiety
Physical Exam
Vital Signs
Vital Signs
Temp Pulse Resp BP Pulse Ox
98.1 F 74 23 114/65 93
09/15/23 17:10 09/15/23 21:15 09/15/23 21:15 09/15/23 21:00 09/15/23 20:47
Physical Exam
General: Other (78y M in no acute distress.)
HEENT: Moist mucous membranes and PERRLA
Respiratory: Other (Decreased BS bilaterally / throughout with very poor effort.)
Cardiac: S1/S2, Regular Rhythm and Murmur (III/ ARLETH)
GI: Other (Obese, not tender, pos BS.)
Musculoskeletal: No Clubbing, No Cyanosis and Other (1-2+ pitting edema b/l LEs.)
Neuro: AO x 3
Laboratory Results
-
09/15/23 17:54
09/15/23 17:54
Laboratory Results
Total Bilirubin 0.8 mg/dl (0.2-1.3) 09/15/23 17:54
AST 25 U/L (17-59) 09/15/23 17:54
ALT 14 U/L (0-50) 09/15/23 17:54
Alkaline Phosphatase 93 U/L (38-126) 09/15/23 17:54
Troponin I 0.039 ng/ml H* 09/15/23 18:30
Impression/Plan
-
A/P: Patient is a 78y M with PMH significant for CHF, A-Fib, aortic stenosis and diet-controlled DM-II who presents to ED complaining of SOB, weakness and fatigue.
Dyspnea / MEJIA
- Admit for further evaluation and treatment.
- Patient's SOB is multifactorial as previously noted.
- Suspect components of obesity, atelectasis, deconditioning, CHF, etc.
- Very poor inspiratory effort. Chronic R hemidiaphragm elevation noted on imaging studies.
- Perhaps mild volume increase from recent admission.
- Treat CHF as noted below.
- Encourage incentive spirometry use, PT / activity as able.
- Follow for improvement, but suspect any significant improvement will take take / rehabilitation.
- Patient may benefit from SNF / rehab stay prior to return home.
Subacute HFrEF
Non-Ischemic Cardiomyopathy
Aortic Stenosis s/p TAVR
- Recent admission for the same. Weight increased slightly from recent admission.
- Will resume IV bumetanide for now and follow I/Os, weights, etc.
- Follow for any appreciable effect on dyspnea.
- Cardio evaluation.
Chronic Non-Ischemic Troponin Elevation
- Stable. Secondary to CHF / CKD.
Permanent Atrial Fibrillation s/p Watchman Device
- Stable. Continue current medication.
- Monitor on telemetry.
- Not on chronic OAC s/p Watchman device.
Diet-Controlled DM-II
- Stable. DM diet.
- Follow glucose and cover with SSI as needed.
CKD IV
- Stable. Renal function is at / near known baseline.
- Follow for changes with IV diuresis.
Anemia of Chronic Disease
- Prior h/o GI blood loss - but no overt bleeding since discontinuation of OAC.
- Hgb is stable / follow for any changes.
Obesity due to excess calories
- Affects all aspects of care including chronic dyspnea.
- Encourage healthy diet and increased activity as tolerated.
DVT Prophylaxis: Subcut Heparin
Code Status: Full
[2023-09-16] VITALS (10 sets, daily range): BP systolic 109–121; BP diastolic 56–71; PULSE 62; O2SAT 100; BMI 34.2
--- NOTE | 2023-09-16 00:23 | PTCARENOTE ---
Received patient from ED via stretcher. Pt AAOX3. Pox: 91% 2L NC. A/V paced on laboratory monitor. Call leon within reach. Plan of care ongoing.
[2023-09-16 01:06] LABS: Troponin I 0.046 ng/ml
[2023-09-16 01:18] LABS: TSH Reflex To Free T4 2.37 uIU/ml (0.47-4.68)
[2023-09-16] MEDS: BUMEX 2 MG IV ×2 (01:34→15:15)
[2023-09-16 07:20] LABS: Glucose - Point of Care 113 mg/dl (70-99)
[2023-09-16 07:29] LABS: Hematocrit 25.4 % (39.0-52.0); Mean Corp Hgb Conc. 31.5 g/dL (33.0-37.0); Mean Corpuscular Hgb 24.8 pg (27.0-31.0); Mean Corpuscular Volume 78.6 fL (80.0-94.0); Mean Platelet Volume 11.5 fL (7.4-10.4); Platelet Count 120 10^3/uL (130-400); Red Blood Cell Count 3.23 10^6/uL (4.70-6.10); Red Cell Dist. Width 17.4 % (11.5-14.5); White Blood Cell Count 4.6 10^3/uL (4.8-10.8)
[2023-09-16 07:57] LABS: Troponin I 0.037 ng/ml
[2023-09-16 08:00] LABS: Blood Urea Nitrogen 91 mg/dl (9-20); Calcium 9.6 mg/dl (8.4-10.2); Carbon Dioxide 37 mmol/L (22-30); Chloride 93 mmol/L (98-107); Estimated Creatinine Clearance 23 ml/min; Glucose 116 mg/dl (70-99); Potassium 3.6 mmol/L (3.5-5.1); Sodium 140 mmol/L (135-145); eGFR 19.08
[2023-09-16] MEDS: DESENEX/MITRAZOL/ZEASORB 1 APPLIC TOPICAL ×2 (08:16→21:08)
[2023-09-16] MEDS: TYLENOL 650 MG PO ×3 (08:17→21:32)
[2023-09-16] MEDS: KCL 20 MEQ PO ×2 (08:17→21:07)
[2023-09-16] MEDS: TOPROL XL 25 MG PO (08:17)
[2023-09-16] MEDS: HEPARIN 5000 UNITS SC ×2 (08:18→21:07)
[2023-09-16] MEDS: LOW STRENGTH ASPIRIN 81 MG PO (08:18)
--- NOTE | 2023-09-16 10:55 | W.PN.HOSP.TC ---
Today's Communication/Plan
-
.
Assessment / Plan
Assessment / Plan
Physical Exam
-
General: No Apparent Distress. Chronically ill looking, obese.
HEENT: Normocephalic and Atraumatic
Respiratory: Limited at the bases but no crackles or wheezes.
Cardiac: S1, S2, positive murmur
GI: Soft and Nontender
Genito-urinary: No Costovertebral Tender
Musculoskeletal: No Edema
Neuro: AO x 3, followed commands.
Psych: Calm, no agitation.
# Failure to thrive at home
Patient declined SNF placement last discharge. He was informed about benefits of being in a structured environment where he can get his exact medication, low-salt/heart diet and monitor his weight.
Hopefully, he will change his mind after failing to thrive at home
Paramedics reported his home was in deplorable conditions and he was covered in stool and filth.��
assistant plant manager is consulted
# Acute diarrhea. C. difficile colitis
No abd tenderness on exam
Patient reports discomfort
He received IV ABx last admission
Checked for C diff. Antigen is positive but negative toxin. Will give oral vancomycin since he is having diarrhea and continue isolation
No fever. No leukocytosis.
# Exertional and resting sob
Multifactorial.� Secondary to heart failure/poor inspiratory effort and atelectasis/obesity-sedentary lifestyle
Patient remains comfortable at rest but has sob at times.� Speaking in full sentences.� Not in shortness of breath or acute distress.� Used PRN O2 at home in the past. He was not qualified upon discharge and he refused to do ambulatory O2 testing
despite several attempts to encourage him. .� No history of smoking.� Not on bronchodilators..� Recent V/q, that showed low probability test with negative lower extremity Doppler.� He was evaluated by pulmonary earlier this month.� Recommend to
continue treating heart failure.
#Acute on chronic HFrEF exacerbation status post ICD
Patient reports compliance to medications and diet but he did not know what pills he was taking exactly.
- Recent echo shows EF of 30 to 35%
- Back on IV Bumex. He was dc on 3 mg oral Bumex BID.
Appreciate cardiology input
Patient was treated for aspiration pneumonia last admission
- Chest x-ray shows possible right lower lobe pneumonia which was stable, likely atelectasis
-He had VSE, no aspiration noted,� ok for regular diet
Patient did not have cough or fever.� No leukocytosis
-Status post IV Unasyn course.
Chronic non-PA troponin elevation in the setting of CKD
- No chest pain
Permanent atrial fibrillation status post Watchman
- Not on anticoagulation
- continue aspirin
- continue metoprolol
Aortic stenosis status post TAVR
History of strep bovis bacteremia/endocarditis
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
# Acute kidney injury on chronic kidney disease stage IV
Creatinine 3.2 from baseline 2.1
Continue with the Bumex to improve heart failure
Monitor BMP and monitor for retention
Hyperlipidemia
- continue statin
# Chronic pain with narcotic dependence
BPH
-Continue tamsulosin
#Obesity
Does not follow healthy diet
Counseled and verbalized understanding.
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
and hemoglobin around 8.� He also is status post watchman and has been off anticoagulation okay to resume 81 mg of aspirin. given his age and multiple comorbidities we will hold on repeat endoscopy colonoscopy unless he has active bleeding but if
over the next couple of weeks medically stable and family and patient agreeable to proceed with endoscopy and colonoscopy will schedule this as outpatient.� Continue iron supplement
DVT ppx: Heparin
Code: Full
Tota time spent to see the patient, examine the patient on the floor, review data and lab results, discuss treatment� plan with patient, nursing staff around 57 minutes
Anticipated Discharge: > 48 hours
Subjective/Interval History
-
Date of Service: September 16, 2023
Objective Data
-
Labs:
Laboratory Results
09/16/23
06:40
WBC 4.6 L
Hgb 8.0 L
Hct 25.4 L
Plt Count 120 L
Sodium 140
Potassium 3.6
Chloride 93 L
Carbon Dioxide 37 H
BUN 91 H
Creatinine 3.2 H
Glucose 116 H
Calcium 9.6
Vital Signs:
Vital Signs
Temp Pulse Resp BP Pulse Ox
97.6 F 70 22 111/57 95
09/16/23 07:10 09/16/23 08:17 09/16/23 07:10 09/16/23 08:17 09/16/23 08:17
I&O
09/15/23 09/16/23 09/17/23
05:59 06:59 06:59
Output Total 200 / 200
Balance -200 / -200
--- NOTE | 2023-09-16 12:52 | CON.CAR ---
Consultation
Consultation Request
Date/Time Consultation Requested: 09/16/23
Date/Time Consultation Performed: 09/16/23
Reason for Consultation: CHF
Medical History
-
Chief Complaint: Dyspnea
History of Present Illness:
78y M with PMH significant for chronic HFrEF, A-Fib and prior endocarditis who presents to ED complaining of SOB and weakness.� Patient was recently hospitalized from 08/26 - 09/11 for CHF.� He received diuresis with IV bumetanide during that
visit.� Patient states that his dyspnea persisted despite diuresis.� It was suspected that his dyspnea was multifactorial and due to deconditioning, atelectasis, obesity, CHF, etc.� He did not qualify for / require supplemental oxygen.� Patient was
discharged to home and states that she has had persistent dyspnea since that time.� His SOB is present with even minimal exertion and he states that he cannot manage at home.� He denies any chest pain, cough, fevers / chills, abdominal pain.
He does state that he has had loose stools for the past 2-3 days. Non-bloody.
Patient was noted to have C. difficile colitis. Patient has refused rehab/usp placement. Currently he is living in suboptimal condition and as per paramedics reported unhygienic/unkept environment in his home.
He was hospitalized a week ago with heart failure with decompensated fluid overload s/p diuresed.
Patient was noted to have infected ICD leads and was extracted on 08/28/2022, and was [facility]. Unfortunately his temporary permanent pacemaker lead was pulled and [facility] and was sent to [facility] where BiV ICD was implanted.
There was not any good CS targets noted and he got his CS lead implanted in the AIV. He has had multiple
Past Medical History
Past Medical History: CHF (Heart failure reduced ejection fraction with a EF of 30% -last echo 08/10/2023), HTN and Other (CAD, non-ischemic cardiomyopathy EF 30-35%, HFrEF, permanent atrial fibrillation (Watchman device on aspirin), aortic stenosis
s/p TAVR, ICD with lead extraction 08/28/2022 with reimplant at [facility] with ICD and CS lead in AIV, dyslipidemia, chronic anemia and CKD3b)
Social History
Tobacco: Former Smoker
Alcohol: None
Living: With Family
Family History
Family History: Reviewed & Not Pertinent
Allergies / Home Medications
Allergy/AdvReac Type Severity Reaction Status Date / Time
No Known Allergies Allergy Verified 09/15/23 17:18
Medication Instructions Recorded Confirmed Type
atorvastatin 40 mg tablet 40 mg PO HS High cholesterol 09/29/22 09/15/23 History
cholecalciferol (vitamin D3) 25 25 mcg PO DAILY Supplement 12/14/22 09/15/23 History
mcg (1,000 unit) tablet (Vitamin
D3)
metoprolol succinate 25 mg 25 mg PO DAILY Blood Pressure 12/14/22 09/15/23 History
tablet,extended release 24 hr
(Toprol XL)
tamsulosin 0.4 mg capsule (Flomax) 0.4 mg PO HS Urinary Issue 12/14/22 09/15/23 History
acetaminophen 500 mg tablet (Pain 1,000 mg PO Q8HPRN PRN mild pain 08/09/23 09/15/23 History
Relief Extra Strength
(acetaminophen))
aspirin 81 mg chewable tablet 81 mg PO DAILY Blood Clot 08/09/23 09/15/23 History
Prevention/Tx
docusate sodium 100 mg capsule 100 mg PO DAILY Constipation 08/09/23 09/15/23 History
melatonin 3 mg tablet 6 mg PO HS Sleep 08/09/23 09/15/23 History
metolazone 2.5 mg tablet 2.5 mg PO TUTH Blood Pressure 08/09/23 09/15/23 History
polyethylene glycol 3350 17 gram 17 g PO DAILY PRN constipation 08/09/23 09/15/23 History
oral powder packet (Miralax)
potassium chloride 20 mEq 20 meq PO BID Electrolyte Repletion 08/09/23 09/15/23 History
tablet,extended release
sennosides 8.6 mg tablet 17.2 mg PO HS Constipation 08/09/23 09/15/23 History
trazodone 50 mg tablet 25 mg PO HS Sleep 08/09/23 09/15/23 History
ferrous sulfate 325 mg (65 mg 325 mg PO DAILY Supplement 09/05/23 09/15/23 History
iron) tablet (FeroSul)
bumetanide 1 mg tablet 3 mg PO BID@0800,1600 #180 tabs 09/12/23 09/15/23 Rx
Review of Systems
-
History Source: Patient
All other systems: Negative unless noted
Physical Exam
Vital Signs
Temp Pulse Resp BP Pulse Ox
97.7 F 71 16 114/56 100
09/16/23 11:10 09/16/23 11:10 09/16/23 11:10 09/16/23 11:10 09/16/23 11:10
Lab Results
09/16/23 06:40
09/16/23 06:40
Troponin I 0.037 ng/ml H* 09/16/23 06:40
Ndd-H-Rahlnmmskzj Pept 2950 pg/ml 09/15/23 18:30
Physical Exam
General: Well Developed, Well Nourished and No Apparent Distress
HEENT: Normocephalic and Anicteric
Respiratory: Rhonchi and Non Labored Respirations
Cardiac: S1/S2 and Regular Rhythm
GI: Soft, Non Tender and Non Distended
Musculoskeletal: No Clubbing, No Cyanosis and No Edema
Skin: Warm and Dry
Neuro: Awake, Alert and No Motor Deficits
Psych: Calm
Impression / Plan
-
78-year-old male with CAD, non-ischemic cardiomyopathy EF 30-35%, HFrEF, permanent atrial fibrillation (Watchman device on aspirin), aortic stenosis s/p TAVR, ICD with lead extraction 08/28/2022, dyslipidemia, chronic anemia and CKD3b, who presented
to the ER with complaints of shortness of breath
HFrEF - acute on chronic.
-Given diarrhea and recent hospitalization with decompensated heart failure, we will hold diuresis.
- monitor daily weights, I&Os.
- echo 08/10/23 -LVEF 30%.
- continue GDMT which is limited by CKD3b.
-Given patient's multiple hospitalizations and clinical deterioration over the last year after implantation of LV lead, we will reinterrogate the device in AM. Plan to deactivate the AIV CS LV pacing lead.
C. difficile colitis
-Recent antibiotics
-C. difficile antigen positive toxin
-Currently on.
Afib - permanent.
- AV paced on tele.
- Spontaneous AV block with BiV paced
- stable, rate controlled.
- no OAC, he is s/p Watchman 04/11/22, on ASA.
s/p TAVR - stable on echo.
ICD - stable with normal function.
- followed in our outpatient device clinic.
CKD - stage 3b.
- stable.
- monitor with diuresis.
Anemia - chronic.
- per hospitalist.
Echo 08/10/23: Left ventricle is dilated. LVEF 30-35%, global hypokinesis, enlarged RV size with normal RV function, ICD wire seen in right ventricle. Severely dilated left and right atrium. Mild to moderate MR, well-seated TAVR with peak/mean
gradients of 25/12 mmHg. Mild paravalvular AR. Moderate to severe TR, Estimated PASP of 55-60 mmHg, the IVC is dilated and does not collapse.�No significant change since the prior study of 08/22/2022.
Data Reviewed
-
EKG: Tracing Personally Visualized and interpreted and Report Reviewed by me
Radiology: Report Reviewed by me
Labs: Labs Reviewed by me
Old Records: Reviewed
[2023-09-16 13:04] LABS: Glucose - Point of Care 144 mg/dl (70-99)
[2023-09-16] MEDS: FIRVANQ 125 MG PO ×3 (13:04→23:01)
--- NOTE | 2023-09-16 14:45 | CM ---
CM following re: discharge planning.
Reviewed pt's chart, met with and had a long conversation with pt's brother Orestes.
Pt is a 78 year old male, admitted with primary dx of Failure to thrive at home
Pt is well known to this CM from previous admissions year. Pt has had many hospitalizations last year, was at many SNFs. Pt reports he used to live with spouse 2SH, 2 steps to enter, has no children. Pt reports he has been at [facility] for
more than 30 days, his spouse also there for a long tyerm care and pt stated he does not like that place. Pt expressed his desire to return back to his house to live with his spouse. Pt stated his brother Orestes and his spouse will help him to stay
at home and pt asked to call his brother Orestes.
CM spoke to pt's brother Orestes [phone] and pt's brother stated he and his spouse have their own health condition and they will not be able to care for pt and his spouse at their home. Per Orestes, APS of [facility] was involved and pt's
spouse removed from her home last year and she was placed to [facility] and after she was placed to [facility]. Per brother, pt might prefer [facility] instead of [facility].
Pt is aware, was not happy to talk aboiut nursing homes and did agree with going to [facility]
D/C plan: [facility] a short term skilled services and transitioning for a care home care.
CM will follow with discharge plan updates as hospitalization progresses
[2023-09-16 16:27] LABS: Glucose - Point of Care 158 mg/dl (70-99)
[2023-09-16] MEDS: LIPITOR 40 MG PO (21:07)
[2023-09-16] MEDS: MELATONIN 6 MG PO (21:08)
[2023-09-16] MEDS: DESYREL 25 MG PO (21:08)
[2023-09-16 21:44] LABS: Glucose - Point of Care 110 mg/dl (70-99)
[2023-09-16] MEDS: FLOMAX 0.400000000000000022 MG PO (22:58)
[2023-09-17] MEDS: BUMEX 2 MG IV ×2 (01:14→13:11)
[2023-09-17 03:39] VITALS: BP 132/62; BMI 33.3
[2023-09-17] MEDS: FIRVANQ 125 MG PO ×4 (05:47→23:35)
[2023-09-17] MEDS: TYLENOL 650 MG PO (05:47)
[2023-09-17 07:03] VITALS: BP 126/61
[2023-09-17 07:07] LABS: Blood Urea Nitrogen 88 mg/dl (9-20); Calcium 10.1 mg/dl (8.4-10.2); Chloride 93 mmol/L (98-107); Estimated Creatinine Clearance 25 ml/min; Glucose 77 mg/dl (70-99); Sodium 137 mmol/L (135-145); eGFR 20.61
[2023-09-17 07:16] LABS: Carbon Dioxide 36 mmol/L (22-30)
[2023-09-17 07:23] LABS: Glucose - Point of Care 90 mg/dl (70-99)
[2023-09-17] MEDS: HEPARIN 5000 UNITS SC ×2 (08:26→20:22)
[2023-09-17] MEDS: LOW STRENGTH ASPIRIN 81 MG PO (08:26)
[2023-09-17] MEDS: KCL 20 MEQ PO ×2 (08:26→20:22)
[2023-09-17] MEDS: TOPROL XL 25 MG PO (08:28)
[2023-09-17] MEDS: DESENEX/MITRAZOL/ZEASORB 1 APPLIC TOPICAL ×2 (08:29→20:23)
--- NOTE | 2023-09-17 11:02 | W.PN.CD ---
Today's Communication / Plan
-
- Reprogram ICD
- turn off AIV CS lead.
- treat C Diff
Impression / Plan
-
78-year-old male with CAD, non-ischemic cardiomyopathy EF 30-35%, HFrEF, permanent atrial fibrillation (Watchman device on aspirin), aortic stenosis s/p TAVR, ICD with lead extraction 08/28/2022, dyslipidemia, chronic anemia and CKD3b, who presented
to the ER with complaints of shortness of breath
HFrEF - acute on chronic.
-Given diarrhea and recent hospitalization with decompensated heart failure, we will hold diuresis.
- monitor daily weights, I&Os.
- echo 08/10/23 -LVEF 30%.
- continue GDMT which is limited by CKD3b.
-Given patient's multiple hospitalizations and clinical deterioration over the last year after implantation of LV lead, we will reinterrogate the device today. Plan to deactivate the AIV CS LV pacing lead.
C. difficile colitis
-Recent antibiotics
-C. difficile antigen positive toxin
-Currently on PO Vanco
Afib - permanent.
- AV paced on tele.
- Spontaneous AV block with BiV paced
- stable, rate controlled.
- no OAC, he is s/p Watchman 04/11/22, on ASA.
s/p TAVR - stable on echo.
ICD - stable with normal function.
- followed in our outpatient device clinic.
CKD - stage 3b.
- stable.
- monitor with diuresis.
Anemia - chronic.
- per hospitalist.
Echo 08/10/23: Left ventricle is dilated. LVEF 30-35%, global hypokinesis, enlarged RV size with normal RV function, ICD wire seen in right ventricle. Severely dilated left and right atrium. Mild to moderate MR, well-seated TAVR with peak/mean
gradients of 25/12 mmHg. Mild paravalvular AR. Moderate to severe TR, Estimated PASP of 55-60 mmHg, the IVC is dilated and does not collapse.�No significant change since the prior study of 08/22/2022.
Physical Exam
Vital Signs/Labs
Vital Signs
Temp Pulse Resp BP Pulse Ox
97.9 F 73 16 126/61 98
09/17/23 07:03 09/17/23 08:28 09/17/23 07:03 09/17/23 08:28 09/17/23 07:03
09/16/23 09/17/23 09/18/23
06:59 06:59 06:59
Actual Weight 105.37 kg
09/16/23 06:40
09/17/23 05:53
09/15/23
18:30
Elt-J-Ofktnxreape Pept 2950
LAB Results
09/15/23 09/16/23 09/16/23
18:30 00:16 06:40
Troponin I 0.039 H* 0.046 H* 0.037 H*
Physical Exam
Constitutional: No acute distress, Comfortable and Other (lethargic and tired)
EENT: Anicteric and Moist mucous membranes
Cardiovascular: Rhythm & rate is regular, Pedal edema is absent, JVD present and Systolic murmur present
Respiratory: Respiratory effort normal, Wheeze Absent and Crackles Absent
GI: Soft, Flat and Non tender
Neuro/Psych: Alert, Oriented and AO x 3
Data Reviewed
-
Date of Service: September 17, 2023
Medical Decision Making: Reviewed Test Results, Test Interpretation and Review of Case with other Provider
EKG: Tracing Personally Visualized and interpreted
Echo: Tracing Personally Visualized and interpreted
Labs: Labs Reviewed by me
Old Records: Reviewed
--- NOTE | 2023-09-17 11:04 | W.CARD.DEVCH ---
Cardiac Device Check
-
Device: Implanted Cardioverter-Defibrillator
Manager [employer]: [employer]
The patient's device was interrogated with assistance of the device utility sales representative followed by a complete physician review. The device had normal function. No abnormalities seen.
The device was reprogrammed to turn off the LV pacing and is now RV pacing only. The single lead monitor showing surface EKG showed narrower QRS with RV only pacing.
[2023-09-17 11:05] VITALS: BP 116/64
[2023-09-17 11:53] LABS: Glucose - Point of Care 113 mg/dl (70-99)
--- NOTE | 2023-09-17 13:09 | W.PN.HOSP.TC ---
Today's Communication/Plan
-
cont diuresis, monitor SCr
oral vancomycin
Assessment / Plan
Assessment / Plan
Physical Exam
-
General: No Apparent Distress. Chronically ill looking, obese.
HEENT: Normocephalic and Atraumatic
Respiratory: Limited at the bases but no crackles or wheezes.
Cardiac: S1, S2, positive murmur
GI: Soft and Nontender
Genito-urinary: No Costovertebral Tender
Musculoskeletal: No Edema
Neuro: AO x 3, followed commands.
Psych: Calm, no agitation.
# Failure to thrive at home
Patient declined SNF placement last discharge. He was informed about benefits of being in a structured environment where he can get his exact medication, low-salt/heart diet and monitor his weight.
Okay for SNF at this point
Paramedics reported his home was in deplorable conditions and he was covered in stool and filth.��
solar sales manager is consulted
# Acute diarrhea. C. difficile colitis
No abd tenderness on exam
Patient reports discomfort
He received IV ABx last admission
Checked for C diff. Antigen is positive but negative toxin. Will give oral vancomycin since he is having diarrhea and continue isolation - Diarrhea improving;
No fever. No leukocytosis.
=
# Exertional and resting sob
Multifactorial.� Secondary to heart failure/poor inspiratory effort and atelectasis/obesity-sedentary lifestyle
Patient remains comfortable at rest but has sob at times.� Speaking in full sentences.� Not in shortness of breath or acute distress.� Used PRN O2 at home in the past. He was not qualified upon discharge and he refused to do ambulatory O2 testing
despite several attempts to encourage him. .� No history of smoking.� Not on bronchodilators..� Recent V/q, that showed low probability test with negative lower extremity Doppler.� He was evaluated by pulmonary earlier this month.� Recommend to
continue treating heart failure.
-Cont IV diuresis
#Acute on chronic HFrEF exacerbation status post ICD
Patient reports compliance to medications and diet but he did not know what pills he was taking exactly.
- Recent echo shows EF of 30 to 35%
- Back on IV Bumex. He was dc on 3 mg oral Bumex BID.
- 105kg today, has been down to 101kg - continue IV diuresis
- Appreciate cardiology input
Patient was treated for aspiration pneumonia last admission
- Chest x-ray shows possible right lower lobe pneumonia which was stable, likely atelectasis
-He had VSE, no aspiration noted,� ok for regular diet
Patient did not have cough or fever.� No leukocytosis
-Status post IV Unasyn course.
Chronic non-[place] troponin elevation in the setting of CKD
- No chest pain
Permanent atrial fibrillation status post Watchman
- Not on anticoagulation
- continue aspirin
- continue metoprolol
-interrogated today, reprogrammed
Aortic stenosis status post TAVR
History of strep bovis bacteremia/endocarditis
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
# Acute kidney injury on chronic kidney disease stage IV
Creatinine 3.2 from baseline 2.1
Continue with the Bumex to improve heart failure
Monitor BMP with diuresis
Hyperlipidemia
- continue statin
# Chronic pain with narcotic dependence
BPH
-Continue tamsulosin
#Obesity
Does not follow healthy diet
Counseled and verbalized understanding.
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
and hemoglobin around 8.� He also is status post watchman and has been off anticoagulation okay to resume 81 mg of aspirin. given his age and multiple comorbidities we will hold on repeat endoscopy colonoscopy unless he has active bleeding but if
over the next couple of weeks medically stable and family and patient agreeable to proceed with endoscopy and colonoscopy will schedule this as outpatient.� Continue iron supplement
DVT ppx: Heparin
Code: Full
Total time spent on today's encounter was 55 minutes which included time spent in counseling the patient/family regarding diagnosis and treatment plan as listed above, goals of care, and symptom management. Case was discussed with nursing staff,
specialists, and care coordinators/case management. All labs and imaging personally reviewed by me. Remainder the time spent in detailed review of previous records, lab data, imaging, and other medical provider documentation.
Anticipated Discharge: 24 - 48 hours
Subjective/Interval History
-
Date of Service: September 17, 2023
Diarrhea improved
Objective Data
-
Labs:
Laboratory Results
09/17/23
05:53
Sodium 137
Potassium 4.0
Chloride 93 L
Carbon Dioxide 36 H
BUN 88 H
Creatinine 3.0 H
Glucose 77
Calcium 10.1
Vital Signs:
Vital Signs
Temp Pulse Resp BP Pulse Ox
97.8 F 72 16 116/64 97
09/17/23 11:05 09/17/23 11:05 09/17/23 11:05 09/17/23 11:05 09/17/23 11:05
I&O
09/16/23 09/17/23 09/18/23
06:59 06:59 06:59
Intake Total 990 / 990
Output Total 2735 / 2735
Balance -1745 / -1745
Review of Systems
-
All other systems: Reviewed and negative
Physical Exam
-
General: No Apparent Distress
HEENT: Normocephalic and Atraumatic
Respiratory: Negative Wheezes or Rales
Cardiac: S1/S2
GI: Soft
Genito-urinary: No Costovertebral Tender
Neuro: AO x 3
Psych: Calm
Data Reviewed
-
Total Time Spent with Patient (in minutes): 42
Diagnostic Radiology: Image personally visualized and interpreted and Report Reviewed by me
Labs: Labs Reviewed by me
[2023-09-17 15:03] VITALS: BP 127/68
--- NOTE | 2023-09-17 16:17 | CM ---
Diuresing, monitoring labs. Discharge plan of care: SNF. Agreed to [facility] for STR possible transition to LTC.
[2023-09-17 16:26] LABS: Glucose - Point of Care 154 mg/dl (70-99)
[2023-09-17 19:15] VITALS: BP 118/54
[2023-09-17 21:48] LABS: Glucose - Point of Care 173 mg/dl (70-99)
[2023-09-17] MEDS: DESYREL 25 MG PO (22:05)
[2023-09-17] MEDS: MELATONIN 6 MG PO (22:06)
[2023-09-17] MEDS: FLOMAX 0.400000000000000022 MG PO (22:06)
[2023-09-17] MEDS: LIPITOR 40 MG PO (22:06)
[2023-09-17 23:13] VITALS: BP 121/64
[2023-09-18] VITALS (7 sets, daily range): BP systolic 109–126; BP diastolic 53–69; BMI 33.0
[2023-09-18] MEDS: BUMEX 2 MG IV ×2 (01:01→13:17)
[2023-09-18] MEDS: FIRVANQ 125 MG PO ×3 (05:32→17:21)
[2023-09-18 07:21] LABS: Glucose - Point of Care 94 mg/dl (70-99)
[2023-09-18] MEDS: TOPROL XL 25 MG PO (07:57)
[2023-09-18] MEDS: KCL 20 MEQ PO ×2 (07:57→20:06)
[2023-09-18] MEDS: LOW STRENGTH ASPIRIN 81 MG PO (07:58)
[2023-09-18] MEDS: HEPARIN 5000 UNITS SC ×2 (07:58→20:06)
--- NOTE | 2023-09-18 08:02 | W.PN.CD ---
Today's Communication / Plan
-
- Resume Bumex 2 mg QD at discharge (changed from 3 mg BID at home dose to 2 mg QD)
Impression / Plan
-
78-year-old male with CAD, non-ischemic cardiomyopathy EF 30-35%, HFrEF, permanent atrial fibrillation (Watchman device on aspirin), aortic stenosis s/p TAVR, ICD with lead extraction 08/28/2022, dyslipidemia, chronic anemia and CKD3b, who presented
to the ER with complaints of shortness of breath
HFrEF - acute on chronic.
-Given diarrhea and recent hospitalization with decompensated heart failure, Lasix held.
- monitor daily weights, I&Os.
- echo 08/10/23 -LVEF 30%.
- continue GDMT which is limited by CKD3b.
- On IV bumex 2 mg BID - appears euvolemic now.
- Can switch to 2 mg QD at discharge and weigh weight at home / care home. Adjust dose accordingly.
- s/p AIV CS LV pacing lead deactivated on 09/17/23. QRS is if anything shorter after AIV lead deactivated.
- patient is already feeling much better - alert and awake. Engaging in discussion and his care and planning. Quite encouraging.
C. difficile colitis
-Recent antibiotics
-C. difficile antigen positive toxin
-Currently on PO Vanco
Afib - permanent.
- VVI now - V paced on tele.
- stable, rate controlled.
- no OAC, he is s/p Watchman 04/11/22, on ASA.
s/p TAVR - stable on echo.
ICD - stable with normal function.
- followed in our outpatient device clinic.
CKD - stage 3b.
- stable.
- monitor with diuresis.
Anemia - chronic.
- per hospitalist.
Echo 08/10/23: Left ventricle is dilated. LVEF 30-35%, global hypokinesis, enlarged RV size with normal RV function, ICD wire seen in right ventricle. Severely dilated left and right atrium. Mild to moderate MR, well-seated TAVR with peak/mean
gradients of 25/12 mmHg. Mild paravalvular AR. Moderate to severe TR, Estimated PASP of 55-60 mmHg, the IVC is dilated and does not collapse.�No significant change since the prior study of 08/22/2022.
Physical Exam
Vital Signs/Labs
Vital Signs
Temp Pulse Resp BP Pulse Ox
97.6 F 71 18 109/53 99
09/18/23 03:19 09/18/23 03:19 09/18/23 03:19 09/18/23 03:19 09/18/23 03:19
09/17/23 09/18/23 09/19/23
06:59 06:59 06:59
Actual Weight 105.37 kg 104.417 kg
09/16/23 06:40
09/17/23 05:53
09/15/23
18:30
Avb-L-Ajqdafeyyaf Pept 2950
LAB Results
09/15/23 09/16/23 09/16/23
18:30 00:16 06:40
Troponin I 0.039 H* 0.046 H* 0.037 H*
Physical Exam
Constitutional: No acute distress and Comfortable
EENT: Anicteric and Moist mucous membranes
Cardiovascular: Rhythm & rate is regular, Pedal edema is absent, JVD present and Systolic murmur present
Respiratory: Respiratory effort normal, Lungs clear to auscul., Wheeze Absent and Crackles Absent
GI: Soft, Flat and Non tender
Neuro/Psych: Alert, Oriented and AO x 3
Data Reviewed
-
Date of Service: September 18, 2023
Medical Decision Making: Reviewed Test Results, Independent Historian Assessment and Review of Case with other Provider
EKG: Tracing Personally Visualized and interpreted
Echo: Report Reviewed by me
Labs: Labs Reviewed by me
Old Records: Reviewed
[2023-09-18] MEDS: DESENEX/MITRAZOL/ZEASORB 1 APPLIC TOPICAL ×2 (08:11→20:07)
[2023-09-18 08:57] LABS: Hematocrit 25.5 % (39.0-52.0); Hemoglobin 7.9 g/dL (13.0-18.0); Mean Corpuscular Hgb 24.7 pg (27.0-31.0); Mean Corpuscular Volume 79.7 fL (80.0-94.0); Mean Platelet Volume 10.3 fL (7.4-10.4); Platelet Count 126 10^3/uL (130-400); Red Cell Dist. Width 17.7 % (11.5-14.5); White Blood Cell Count 3.4 10^3/uL (4.8-10.8)
[2023-09-18 09:15] LABS: Blood Urea Nitrogen 87 mg/dl (9-20); Calcium 9.8 mg/dl (8.4-10.2); Carbon Dioxide 38 mmol/L (22-30); Chloride 94 mmol/L (98-107); Estimated Creatinine Clearance 27 ml/min; Glucose 77 mg/dl (70-99); Potassium 3.8 mmol/L (3.5-5.1); Sodium 137 mmol/L (135-145); eGFR 23.39
[2023-09-18 12:04] LABS: Glucose - Point of Care 164 mg/dl (70-99)
--- NOTE | 2023-09-18 13:50 | PN.CDI ---
CDI
- -
CDI:
Physician Documentation Request
Admit Date: 09/15/23 22:55
Dear Doctor Natasha,
Patient admitted with acute on chronic systolic CHF.
09/15 WBC 4.6, RBC 3.23 and platelet count 120
09/16 WBC 3.4, RBC 3.20 and platelet count 126
Based on the above, please clarify in the progress notes, the appropriate diagnosis, if significant, that supports the above abnormalities and additional evaluation, monitoring and/or treatment rendered:
Pancytopenia
Insignificant abnormal lab findings
Other
Use of terms such as suspected, likely, concern for, or probable (associated with a specific diagnosis that is being evaluated, monitored, or treated as if it exists) are acceptable and can be coded in the inpatient setting, when documented at the
time of discharge.
Thank you,
Kellie MCCORMICK,RN,CCDS
CDI Specialist
Available via [place] text
Please use your independent medical judgment in providing your response.
--- NOTE | 2023-09-18 14:12 | W.PN.HOSP.TC ---
Today's Communication/Plan
-
switch to PO lasix
Pending Placement
Assessment / Plan
Assessment / Plan
Physical Exam
-
General: No Apparent Distress. Chronically ill looking, obese.
HEENT: Normocephalic and Atraumatic
Respiratory: Limited at the bases but no crackles or wheezes.
Cardiac: S1, S2, positive murmur
GI: Soft and Nontender
Genito-urinary: No Costovertebral Tender
Musculoskeletal: No Edema
Neuro: AO x 3, followed commands.
Psych: Calm, no agitation.
# Failure to thrive at home
Patient declined SNF placement last discharge. He was informed about benefits of being in a structured environment where he can get his exact medication, low-salt/heart diet and monitor his weight.
Okay for SNF at this point
Paramedics reported his home was in deplorable conditions and he was covered in stool and filth.��
energy efficient site manager is consulted
# Acute diarrhea. C. difficile colitis
No abd tenderness on exam
Patient reports discomfort
He received IV ABx last admission
Checked for C diff. Antigen is positive but negative toxin. Will give oral vancomycin since he is having diarrhea and continue isolation - Diarrhea improving; - give 10 day course
No fever. No leukocytosis.
# Exertional and resting sob
Multifactorial.� Secondary to heart failure/poor inspiratory effort and atelectasis/obesity-sedentary lifestyle
Patient remains comfortable at rest but has sob at times.� Speaking in full sentences.� Not in shortness of breath or acute distress.� Used PRN O2 at home in the past. He was not qualified upon discharge and he refused to do ambulatory O2 testing
despite several attempts to encourage him. .� No history of smoking.� Not on bronchodilators..� Recent V/q, that showed low probability test with negative lower extremity Doppler.� He was evaluated by pulmonary earlier this month.� Recommend to
continue treating heart failure.
-Now much more euvolemic - transition back to PO
#Acute on chronic HFrEF exacerbation status post ICD
Patient reports compliance to medications and diet but he did not know what pills he was taking exactly.
- Recent echo shows EF of 30 to 35%
- Back on IV Bumex. He was dc on 3 mg oral Bumex BID.
- 104kg - start PO lasix
- Appreciate cardiology input
Patient was treated for aspiration pneumonia last admission
- Chest x-ray shows possible right lower lobe pneumonia which was stable, likely atelectasis
-He had VSE, no aspiration noted,� ok for regular diet
Patient did not have cough or fever.� No leukocytosis
-Status post IV Unasyn course.
Chronic non-ND troponin elevation in the setting of CKD
- No chest pain
Permanent atrial fibrillation status post Watchman
- Not on anticoagulation
- continue aspirin
- continue metoprolol
-interrogated, reprogrammed
Aortic stenosis status post TAVR
History of strep bovis bacteremia/endocarditis
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
# Acute kidney injury on chronic kidney disease stage IV
Creatinine 3.2 from baseline 2.1
Continue with the Bumex to improve heart failure
Monitor BMP with diuresis
-F/u BMP outpatient
Hyperlipidemia
- continue statin
# Chronic pain with narcotic dependence
BPH
-Continue tamsulosin
#Obesity
Does not follow healthy diet
Counseled and verbalized understanding.
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
and hemoglobin around 8.� He also is status post watchman and has been off anticoagulation okay to resume 81 mg of aspirin. given his age and multiple comorbidities we will hold on repeat endoscopy colonoscopy unless he has active bleeding but if
over the next couple of weeks medically stable and family and patient agreeable to proceed with endoscopy and colonoscopy will schedule this as outpatient.� Continue iron supplement
DVT ppx: Heparin
Code: Full
Dispo: Pending placement; CM aware
Total time spent on today's encounter was 55 minutes which included time spent in counseling the patient/family regarding diagnosis and treatment plan as listed above, goals of care, and symptom management. Case was discussed with nursing staff,
specialists, and care coordinators/case management. All labs and imaging personally reviewed by me. Remainder the time spent in detailed review of previous records, lab data, imaging, and other medical provider documentation.
Anticipated Discharge: Within 24 hours
Subjective/Interval History
-
Date of Service: September 18, 2023
no acute events, no sob
Objective Data
-
Labs:
Laboratory Results
09/18/23
08:50
WBC 3.4 L
Hgb 7.9 L
Hct 25.5 L
Plt Count 126 L
Sodium 137
Potassium 3.8
Chloride 94 L
Carbon Dioxide 38 H
BUN 87 H
Creatinine 2.7 H
Glucose 77
Calcium 9.8
Vital Signs:
Vital Signs
Temp Pulse Resp BP Pulse Ox
98.2 F 70 16 122/58 98
09/18/23 12:51 09/18/23 12:51 09/18/23 12:51 09/18/23 12:51 09/18/23 12:51
I&O
09/17/23 09/18/23 09/19/23
06:59 06:59 06:59
Intake Total 990 / 990 1740 / 1740
Output Total 2735 / 2735 2700 / 2700
Balance -1745 / -1745 -960 / -960
Review of Systems
-
History Source: Patient
All other systems: Not reviewed unless documented
Physical Exam
-
General: No Apparent Distress
HEENT: Normocephalic and Atraumatic
Respiratory: Negative Wheezes or Rales
Cardiac: S1/S2
GI: Soft
Genito-urinary: No Costovertebral Tender
Neuro: AO x 3
Psych: Calm
Data Reviewed
-
Total Time Spent with Patient (in minutes): 42
Diagnostic Radiology: Image personally visualized and interpreted and Report Reviewed by me
Labs: Labs Reviewed by me
[2023-09-18] MEDS: ZAROXOLYN 2.5 MG PO (16:17)
[2023-09-18 16:50] LABS: Glucose - Point of Care 200 mg/dl (70-99)
--- NOTE | 2023-09-18 17:01 | CM ---
Ross to [facility]. Therapy recommendation for SNF. 11 Referrals have been forwarded. [facility] interested and liaison is checking bed availability.
--- NOTE | 2023-09-18 17:37 | PTCARENOTE ---
[place] texted Dr Kaur to make aware of patient's refusal to receive subcu insulin throughout shift. Blood sugars have been 94(at breakfast) 164 (at lunch), and 200 (before diner). Patient educated each time and insisted that he does not take/and
does not want any insulin.
[2023-09-18 21:20] LABS: Glucose - Point of Care 168 mg/dl (70-99)
[2023-09-18] MEDS: FLOMAX 0.400000000000000022 MG PO (21:51)
[2023-09-18] MEDS: DESYREL 25 MG PO (21:51)
[2023-09-18] MEDS: MELATONIN 6 MG PO (21:52)
[2023-09-18] MEDS: LIPITOR 40 MG PO (21:52)
[2023-09-19] MEDS: FIRVANQ 125 MG PO ×4 (00:08→17:03)
[2023-09-19 03:11] VITALS: BP 125/59
[2023-09-19 05:02] LABS: Hematocrit 26.1 % (39.0-52.0); Mean Corp Hgb Conc. 30.7 g/dL (33.0-37.0); Mean Corpuscular Hgb 24.2 pg (27.0-31.0); Mean Corpuscular Volume 79.1 fL (80.0-94.0); Mean Platelet Volume 10.5 fL (7.4-10.4); Platelet Count 142 10^3/uL (130-400); Red Cell Dist. Width 17.8 % (11.5-14.5); White Blood Cell Count 3.8 10^3/uL (4.8-10.8)
[2023-09-19 05:35] VITALS: BMI 32.6
[2023-09-19 05:43] LABS: Blood Urea Nitrogen 90 mg/dl (9-20); Calcium 10.3 mg/dl (8.4-10.2); Chloride 91 mmol/L (98-107); Estimated Creatinine Clearance 25 ml/min; Glucose 85 mg/dl (70-99); Potassium 4.2 mmol/L (3.5-5.1); Sodium 139 mmol/L (135-145); eGFR 21.47
[2023-09-19 05:51] LABS: Carbon Dioxide 36 mmol/L (22-30)
[2023-09-19 07:10] VITALS: BP 108/69
[2023-09-19 07:12] LABS: Glucose - Point of Care 103 mg/dl (70-99)
[2023-09-19] MEDS: TOPROL XL 25 MG PO (08:07)
[2023-09-19] MEDS: LOW STRENGTH ASPIRIN 81 MG PO (08:07)
[2023-09-19] MEDS: BUMEX 3 MG PO ×2 (08:08→17:02)
[2023-09-19] MEDS: HEPARIN 5000 UNITS SC (08:09)
[2023-09-19] MEDS: KCL 20 MEQ PO (08:10)
[2023-09-19] MEDS: DESENEX/MITRAZOL/ZEASORB 1 APPLIC TOPICAL (08:10)
[2023-09-19 11:03] LABS: Glucose - Point of Care 174 mg/dl (70-99)
[2023-09-19 11:04] VITALS: BP 116/64
--- NOTE | 2023-09-19 12:20 | W.PN.HOSP.TC ---
Addendum entered and electronically signed by Rolando Kaur MD 09/20/23 17:06:
[id number]
Addendum entered and electronically signed by Rolando Kaur MD 09/20/23 16:39:
Pancytopenia
-most likely 2/2 to acute illness, cdiff, failure to thrive
-f/u cbc outpatient
Original Note:
Today's Communication/Plan
-
change bumex to 2gm daily as per cards recs
complete oral vanco course
bmp f/u outpatient with pcp/cards
f/u pcp, cardiology, gi
Assessment / Plan
Assessment / Plan
Physical Exam
-
General: No Apparent Distress. Chronically ill looking, obese.
HEENT: Normocephalic and Atraumatic
Respiratory: Limited at the bases but no crackles or wheezes.
Cardiac: S1, S2, positive murmur
GI: Soft and Nontender
Genito-urinary: No Costovertebral Tender
Musculoskeletal: No Edema
Neuro: AO x 3, followed commands.
Psych: Calm, no agitation.
# Failure to thrive at home
Patient declined SNF placement last discharge. He was informed about benefits of being in a structured environment where he can get his exact medication, low-salt/heart diet and monitor his weight.
Okay for SNF at this point
Paramedics reported his home was in deplorable conditions and he was covered in stool and filth.��
employment agency manager is consulted
# Acute diarrhea. C. difficile colitis
No abd tenderness on exam
Patient reports discomfort
He received IV ABx last admission
Checked for C diff. Antigen is positive but negative toxin. Will give oral vancomycin since he is having diarrhea and continue isolation - Diarrhea improving; - give 10 day course
No fever. No leukocytosis.
# Exertional and resting sob
Multifactorial.� Secondary to heart failure/poor inspiratory effort and atelectasis/obesity-sedentary lifestyle
Patient remains comfortable at rest but has sob at times.� Speaking in full sentences.� Not in shortness of breath or acute distress.� Used PRN O2 at home in the past. He was not qualified upon discharge and he refused to do ambulatory O2 testing
despite several attempts to encourage him. .� No history of smoking.� Not on bronchodilators..� Recent V/q, that showed low probability test with negative lower extremity Doppler.� He was evaluated by pulmonary earlier this month.� Recommend to
continue treating heart failure.
-Now much more euvolemic - transition back to PO�now transition to 2 g daily rather than 3 mg twice daily as per cardiology
#Acute on chronic HFrEF exacerbation status post ICD
Patient reports compliance to medications and diet but he did not know what pills he was taking exactly.
- Recent echo shows EF of 30 to 35%
- Back on IV Bumex. He was dc on 3 mg oral Bumex BID.
- start PO lasix - now transition to 2 g daily rather than 3 mg twice daily as per cardiology
- Appreciate cardiology input
Patient was treated for aspiration pneumonia last admission
- Chest x-ray shows possible right lower lobe pneumonia which was stable, likely atelectasis
-He had VSE, no aspiration noted,� ok for regular diet
Patient did not have cough or fever.� No leukocytosis
-Status post IV Unasyn course.
Chronic non-DC troponin elevation in the setting of CKD
- No chest pain
Permanent atrial fibrillation status post Watchman
- Not on anticoagulation
- continue aspirin
- continue metoprolol
-interrogated, reprogrammed
Aortic stenosis status post TAVR
History of strep bovis bacteremia/endocarditis
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
# Acute kidney injury on chronic kidney disease stage IV
Creatinine 3.2 from baseline 2.1
Continue with the Bumex to improve heart failure
Monitor BMP with diuresis
-F/u BMP outpatient
Hyperlipidemia
- continue statin
# Chronic pain with narcotic dependence
BPH
-Continue tamsulosin
#Obesity
Does not follow healthy diet
Counseled and verbalized understanding.
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
and hemoglobin around 8.� He also is status post watchman and has been off anticoagulation okay to resume 81 mg of aspirin. given his age and multiple comorbidities we will hold on repeat endoscopy colonoscopy unless he has active bleeding but if
over the next couple of weeks medically stable and family and patient agreeable to proceed with endoscopy and colonoscopy will schedule this as outpatient.� Continue iron supplement
DVT ppx: Heparin
Code: Full
Dispo: Pending placement; CM aware
More than 30 minutes spent in discharge including
Final examination of the patient
Summarizing hospital stay
Instructions for continuing care to all relevant caregivers
Preparation of discharge records, prescriptions, and referral forms
Total time spent (35 in minutes):
Anticipated Discharge: Today
Subjective/Interval History
-
Date of Service: September 19, 2023
No acute events, diarrhea improving
Objective Data
-
Labs:
Laboratory Results
09/19/23
04:09
WBC 3.8 L
Hgb 8.0 L
Hct 26.1 L
Plt Count 142
Sodium 139
Potassium 4.2
Chloride 91 L
Carbon Dioxide 36 H
BUN 90 H
Creatinine 2.9 H
Glucose 85
Calcium 10.3 H
Vital Signs:
Vital Signs
Temp Pulse Resp BP Pulse Ox
97.6 F 72 16 116/64 96
09/19/23 11:04 09/19/23 11:04 09/19/23 11:04 09/19/23 11:04 09/19/23 11:04
I&O
09/18/23 09/19/23 09/20/23
06:59 06:59 06:59
Intake Total 1740 / 1740 1560 / 1560
Output Total 2700 / 2700 1900 / 1900
Balance -960 / -960 -340 / -340
Review of Systems
-
History Source: Patient
All other systems: Not reviewed unless documented
Physical Exam
-
General: No Apparent Distress
HEENT: Normocephalic and Atraumatic
Respiratory: Negative Wheezes or Rales
Cardiac: S1/S2
GI: Soft
Genito-urinary: No Costovertebral Tender
Neuro: AO x 3
Psych: Calm
Data Reviewed
-
Total Time Spent with Patient (in minutes): 42
Diagnostic Radiology: Image personally visualized and interpreted and Report Reviewed by me
Labs: Labs Reviewed by me
--- NOTE | 2023-09-19 12:26 | W.DS.TRANS ---
DC Summary - Staffing Account Manager
-
Discharge Instructions:
Sleep Apnea Risk High
Discharge Diagnosis/Procedures #Failure to thrive at home
# Acute diarrhea. C. difficile colitis
#Exertional and resting sob
##Acute on chronic HFrEF exacerbation status
post ICD
Diet Low Cholesterol,Low Fat,Restrict fluids to 48 oz
,Low Sodium
Blood Work cbc and bmp in 3-5 days with pcp/cardiology
Specialty Instructions Weigh Daily
Instructions:
Stand-Alone Forms:
Changes to Home Medications: Yes
Discharge Medications:
DC Medications w/original date entered in [employer]
atorvastatin 40 mg tablet 40 mg PO HS High cholesterol 09/29/22
cholecalciferol (vitamin D3) 25 mcg (1,000 unit) tablet (Vitamin D3) 25 mcg PO DAILY Supplement 12/14/22
metoprolol succinate 25 mg tablet,extended release 24 hr (Toprol XL) 25 mg PO DAILY Blood Pressure 12/14/22
tamsulosin 0.4 mg capsule (Flomax) 0.4 mg PO HS Urinary Issue 12/14/22
acetaminophen 500 mg tablet (Pain Relief Extra Strength (acetaminophen)) 1,000 mg PO Q8HPRN PRN mild pain 08/09/23
aspirin 81 mg chewable tablet 81 mg PO DAILY Blood Clot Prevention/Tx 08/09/23
docusate sodium 100 mg capsule 100 mg PO DAILY Constipation 08/09/23
melatonin 3 mg tablet 6 mg PO HS Sleep 08/09/23
metolazone 2.5 mg tablet 2.5 mg PO TUTH Blood Pressure 08/09/23
polyethylene glycol 3350 17 gram oral powder packet (Miralax) 17 g PO DAILY PRN constipation 08/09/23
potassium chloride 20 mEq tablet,extended release 20 meq PO BID Electrolyte Repletion 08/09/23
sennosides 8.6 mg tablet 17.2 mg PO HS Constipation 08/09/23
trazodone 50 mg tablet 25 mg PO HS Sleep 08/09/23
ferrous sulfate 325 mg (65 mg iron) tablet (FeroSul) 325 mg PO DAILY Supplement 09/05/23
bumetanide 1 mg tablet 2 mg PO DAILY #180 tabs 09/19/23
miconazole nitrate 2 % topical powder (Miconazorb AF) 1 applic topical BID #0 grams 09/19/23
vancomycin 50 mg/mL oral solution (Firvanq) 125 mg (2.5 mL) PO Q6 7 days #70 mL 09/19/23
Home Medication Changes
bumetanide 1 mg tablet 2 mg PO DAILY #180 tabs 09/19/23
miconazole nitrate 2 % topical powder (Miconazorb AF) 1 applic topical BID #0 grams 09/19/23
vancomycin 50 mg/mL oral solution (Firvanq) 125 mg (2.5 mL) PO Q6 7 days #70 mL 09/19/23
Pending Results: No
--- NOTE | 2023-09-19 12:34 | CM ---
Addendum entered by Trip Lambert 09/19/23 12:37:
NURSE TO NURSE REPORT # [phone]
FAX # [phone]
Original Note:
Patient has been medically cleared for discharge to [facility] for usp and rehab services. Transport to be scheduled. Patient's brother, Orestes, notified via voice message.
[2023-09-19 15:19] VITALS: BP 129/68
[2023-09-19 17:06] LABS: Glucose - Point of Care 125 mg/dl (70-99)
== END 2023-09-19 18:15 | DRG 371 ==
LOC: 2 NORTH 22:55
PROVIDERS: Emergency Medicine; Internal Medicine; ADMITTING PHYSICIAN Hospitalist; ATTENDING PHYSICIAN Internal Medicine; CONSULT PHYSICIAN Internal Medicine Cardiovascular Disease; EMERGENCY PHYSICIAN Emergency Medicine; FAMILY PHYSICIAN Family Medicine
DX: A04.72 Enterocolitis due to Clostridium difficile, not specified as recurrent (principal); I50.23 Acute on chronic systolic (congestive) heart failure; I13.0 Hypertensive heart and chronic kidney disease with heart failure and stage 1 through stage 4 chronic kidney disease, or unspecified chronic kidney disease; N18.4 Chronic kidney disease, stage 4 (severe); J98.11 Atelectasis; I48.21 Permanent atrial fibrillation; D61.818 Other pancytopenia; E66.09 Other obesity due to excess calories; R62.7 Adult failure to thrive; Z79.82 Long term (current) use of aspirin; Z95.810 Presence of automatic (implantable) cardiac defibrillator; Z68.32 Body mass index [BMI] 32.0-32.9, adult
CPT/HCPCS: 71046; 72040; 80048; 80053; 82962; 83880; 84443; 84484; 85025; 85027; 87045; 87046; 87077; 87324; 87427; 87449; 93005; 97162; 97166; 97530; 99285